=== PATIENT | male | born 1935 | race Caucasian/White ===

== ENCOUNTER 2018-07-20 23:01 | Emergency (ER) | payer MEDICARE ==
[2018-07-20] MEDS ORDERED: TOPICAL SKIN ADHESIVE 1 EACH AMP TOPICAL ONE (23:09)
--- NOTE | 2018-07-20 23:57 | ED ---
Extremity Problem HPI - General Chief complaint: Extremity Problem,Nontraumatic Stated complaint: Leg Bleeding Time Seen by Provider: 07/20/18 23:08 Source: patient Mode of arrival: ambulatory Limitations: no limitations - History of Present Illness Initial comments: 82-year-old male patient presents to the emergency department today for evaluation of bleeding from the right lower extremity. Patient states he was sitting watching television when he reached down and touched his leg and it came back bloody. Patient states he does have multiple varicose veins to the lower extremities. Patient states he must have struck his leg on something without realizing it. Patient is taking Xarelto currently. Denies any dizziness or weakness. Denies any numbness or tingling to the extremities. Patient denies any recent rash, fever, chills, shortness breath, chest pain, abdominal pain, nausea, vomiting, diarrhea, constipation, back pain, numbness, tingling, hematuria, dysuria, urinary urgency, urinary frequency, headache, visual changes, or any other complaints. - Related Data Home Medications Medication Instructions Recorded Confirmed Atorvastatin [Lipitor] 20 mg PO DAILY 07/20/18 07/20/18 Levothyroxine Sodium 88 mcg PO DAILY 07/20/18 07/20/18 Oxybutynin ER [Ditropan Xl] 10 mg PO DAILY 07/20/18 07/20/18 Rivaroxaban [Xarelto] 20 mg PO DAILY 07/20/18 07/20/18 Tamsulosin [Flomax] 0.4 mg PO DAILY 07/20/18 07/20/18 metFORMIN HCL ER [Glucophage Xr] 500 mg PO AC-BID 07/20/18 07/20/18 Allergies Allergy/AdvReac Type Severity Reaction Status Date / Time No Known Allergies Allergy Verified 07/20/18 23:41 Review of Systems ROS Statement: Those systems with pertinent positive or pertinent negative responses have been documented in the HPI. ROS Other: All systems not noted in ROS Statement are negative. Past Medical History Past Medical History: CVA/TIA, Hyperlipidemia, Prostate Disorder, Thyroid Disorder Additional Past Medical History / Comment(s): KIDNEY STONE AFE 35 History of Any Multi-Drug Resistant Organisms: None Reported Past Surgical History: Orthopedic Surgery, Tonsillectomy Additional Past Surgical History / Comment(s): RT ANKLE SX TOOK SOME BONE FROM LT HIP TO PUT IN LT ANKLE, JUS CATARACTS. Past Anesthesia/Blood Transfusion Reactions: No Reported Reaction Past Psychological History: No Psychological Hx Reported Smoking Status: Former smoker Past Alcohol Use History: Daily Past Drug Use History: None Reported - Past Family History Father Additional Family Medical History / Comment(s): AT AGE 54 NOT SURE OF EXACT CAUSE OF Mother Family Medical History: Dementia, Diabetes Mellitus Additional Family Medical History / Comment(s): IN HER 80'S-DEVELOPED DM AND DEMENTIA LATER IN LIFE. General Exam Limitations: no limitations General appearance: alert, in no apparent distress Respiratory exam: Present: normal lung sounds bilaterally. Absent: respiratory distress, wheezes, rales, rhonchi, stridor Cardiovascular Exam: Present: regular rate, normal rhythm, normal heart sounds. Absent: systolic murmur, diastolic murmur, rubs, gallop, clicks Extremities exam: Present: full ROM, normal capillary refill, other (Patient has pinpoint bleeding noted from a varicose vein to the right lower leg laterally. ). Absent: normal inspection, tenderness, pedal edema, joint swelling, calf tenderness Neurological exam: Present: alert, oriented X3, CN II-XII intact Psychiatric exam: Present: normal affect, normal mood Skin exam: Present: warm, dry, intact, normal color. Absent: rash Course Vital Signs 07/20/18 07/21/18 23:02 00:13 Temperature 98.8 F 97.7 F Pulse Rate 72 65 Respiratory 20 16 Rate Blood Pressure 131/79 O2 Sat by Pulse 95 94 L Oximetry Medical Decision Making - Medical Decision Making 82-year-old male patient presents to the emergency department today for evaluation of bleeding varicose vein. Physical examination did reveal a pinpoint area of bleeding to the right lateral calf. Plan was to close the wound using exofin skin adhesive. Family was present in the room, pressure dressing was applied. They declined receiving the glue and wanted to keep the pressure dressing in place. I did discuss removal of the dressing should his foot become colder discolored. He is instructed to follow-up with his family practitioner for further evaluation as soon as possible. Return parameters were discussed in detail. Both patient and family verbalized understanding and agrees with this plan. Disposition Clinical Impression: Bleeding from varicose vein Disposition: HOME SELF-CARE Condition: Good Instructions (If sedation given, give patient instructions): Acute Wound Care (ED) Additional Instructions: Keep pressure on the wound. Loosen dressing if you are foot becomes cold or discolored. Follow-up with your primary care physician for recheck in 1-2 days. Return to the emergency department immediately for any new, worsening, or concerning symptoms. Is patient prescribed a controlled substance at d/c from ED?: No Referrals: Eli Hunter III, MD [Primary Care Provider] - 1-2 days Time of Disposition: 23:56
[2018-07-21 00:14] VITALS: BP 131/79; PULSE 65; RESP 16; TEMP 97.7
== END 2018-07-21 00:25 | disposition home or self-care (01) ==
LOC: EC 23:01
DX: I83.891 Varicose veins of right lower extremity with other complications (principal); I83.92 Asymptomatic varicose veins of left lower extremity; E78.5 Hyperlipidemia, unspecified; N42.9 Disorder of prostate, unspecified; E07.9 Disorder of thyroid, unspecified; Z87.891 Personal history of nicotine dependence; Z79.01 Long term (current) use of anticoagulants; Z79.84 Long term (current) use of oral hypoglycemic drugs; Z79.890 Hormone replacement therapy; Z79.899 Other long term (current) drug therapy; Z86.73 Personal history of transient ischemic attack (TIA), and cerebral infarction without residual deficits; Z98.890 Other specified postprocedural states; Z53.8 Procedure and treatment not carried out for other reasons
CPT/HCPCS: 99283

== ENCOUNTER 2018-09-28 10:49 | Day surgery (SDC) | payer MEDICARE ==
[2018-09-23 08:17] VITALS: BMI 31.1
[~2018-09-28 10:49] MED LIST: ALPRAZolam 0.25 MG TAB PO PRN; ALPRAZolam 0.5 MG TAB PO PRN; ASPIRIN 325 MG TAB PO STA; ATORVASTATIN 80 MG TAB PO STA; NITROGLYCERIN SL TABS 0.4 MG TAB SUBLINGUAL PRN; SODIUM CHLORIDE 0.9% 1,000 ML in EMPTY BAG 1 BAG IV ONE
[2018-09-28 11:45] VITALS: PULSE 78; TEMP 97.9
[2018-09-28 11:46] LABS: Glucose,Whole Blood 114 mg/dL (75-99)
[2018-09-28 11:51] LABS: Basophils # (A) 0.1 k/uL (0-0.2); Basophils % (A) 1 %; Eosinophils # (A) 0.3 k/uL (0-0.7); Eosinophils % (A) 4 %; HCT 45.8 % (39.0-53.0); HGB 15.3 gm/dL (13.0-17.5); Lymphocytes # (A) 2.3 k/uL (1.0-4.8); Lymphocytes % (A) 29 %; MCHC 33.4 g/dL (31.0-37.0); MCV 83.8 fL (80.0-100.0); Mean Platelet Volume 8.3; Monocytes # (A) 0.6 k/uL (0-1.0); Monocytes % (A) 8 %; Neutrophils # (A) 4.5 k/uL (1.3-7.7); Neutrophils % (A) 56 %; Platelet Count 227 k/uL (150-450); RBC 5.47 m/uL (4.30-5.90); RDW 12.8 % (11.5-15.5)
[2018-09-28 12:02] LABS: Calcium 9.4 mg/dL (8.4-10.2)
[2018-09-28] MEDS ORDERED: fentaNYL (PF) 50 MCG/ML 2 ML AMP IV ONE (12:12)
[2018-09-28] MEDS ORDERED: LIDOCAINE 1% INJ 10MG/ML (20 ML MDV) SQ ONE (12:14)
[2018-09-28] MEDS ORDERED: MIDAZOLAM (PF) 2 MG/2 ML VIAL IV ONE (12:15)
[2018-09-28] MEDS ORDERED: VERAPAMIL SYRINGE (5 MG/10 ML) INTRAARTER ONE (12:16)
[2018-09-28] MEDS ORDERED: IV FLUID CONTINUATION 1,000 ML IV ONE (12:17)
[2018-09-28] MEDS ORDERED: HEPARIN SODIUM 1,000 UN/ML (10ML VL) IV ONE (12:23)
[2018-09-28] MEDS ORDERED: IOPAMIDOL-370 100ML BTL INJ ONE (12:31)
[2018-09-28] MEDS ORDERED: RX INFO: IV CONTRAST WAS GIVEN 1 EACH MISC MISCELLANE PRN (12:35)
[2018-09-28] MEDS ORDERED: SODIUM CHLORIDE 0.9% 1,000 ML IV SCH (12:45)
[2018-09-28 12:50] LABS: Glucose,Whole Blood 105 mg/dL (75-99)
--- NOTE | 2018-09-28 13:38 | CC ---
CARDIAC CATHETERIZATION REPORT Mr. Ambrose is an 82-year-old male with known history of diabetes, hyperlipidemia, paroxysmal atrial fibrillation who presented with symptoms of fatigue. He underwent a myocardial perfusion imaging that revealed evidence of inducible ischemia. He was evaluated by Dr. Eldridge and recommendation was made regarding cardiac catheterization. The procedure as well as the risks and complications were discussed with the patient who is in full understanding and agreement. PROCEDURE: Patient was brought to the laboratory apparatus glass grinder in a fasting semi-sedated state after receiving fentanyl and Benadryl and achieving moderate conscious sedated state. Using Xylocaine anesthesia in the Seldinger technique, a 6-Filipino sheath was introduced in the right radial artery. Selective right and left coronary angiography was performed using 5- Filipino 3.5 bend right and left Marie catheter. Multiple views of the right coronary artery including hemiaxial views were obtained. Following that 5-Filipino tight pigtail catheter was introduced in the left ventricle and pressures were calculated. Following that, catheter and sheath were removed. Hemostasis was obtained with deployment of a TR band. There was no immediate complication. Patient was returned to his room in stable condition. Of note, the patient received 5000 units of intravenous heparin as well as intra-arterial verapamil. FINDINGS: LEFT MAIN: This is a large-sized vessel trifurcating in left circumflex, left anterior descending artery and ramus intermedius. Left main coronary artery has no evidence of high-grade stenosis. LEFT ANTERIOR DESCENDING ARTERY: This is a large-sized vessel reaching toward the apex with a wraparound apex segment giving rise to a diagonal branch of moderate caliber proximally. The left anterior descending artery has a 20% to 30% plaque proximally without any evidence of high-grade stenosis. LEFT CIRCUMFLEX: This is a nondominant vessel giving rise to 3 obtuse marginal branches. The third one is the largest in caliber. The left circumflex proximally at the takeoff of the first obtuse marginal branch has a tubular lesion of about 50%. The rest of the vessel has no high-grade stenosis. RAMUS INTERMEDIUS: This is a small to moderate sized vessel that has a 50% to 60% plaque in the mid segment. The rest of the vessel has no high-grade stenosis. RIGHT CORONARY ARTERY: This is a dominant vessel bifurcating distally PDA and posterolateral segment and branches. The right coronary artery has mild intimal disease in the mid segment of 20% to 30% without any evidence of high-grade stenosis. LEFT VENTRICULOGRAM: Left ventriculogram was not performed. HEMODYNAMICS: There was no gradient across the aortic valve. The left ventricular end- diastolic pressure was 20 mmHg. CONCLUSION: 1. Mild to moderate triple-vessel coronary artery disease. 2. Mildly elevated left ventricular end-diastolic pressure. RECOMMENDATION: In view of finding anatomy, I recommend continue medical therapy with aggressive coronary risk modification that has been initiated and depending on his progress further recommendation will be made. Those findings and recommendations were discussed with the patient and his family and they are in full understanding and agreement. Duration of procedure is 18 minutes. MMODL / IJN: [id number] /
[2018-09-28 17:51] VITALS: RESP 18
[2018-09-28 17:55] VITALS: BP 134/90
[2018-09-29] MEDS ORDERED: TAMSULOSIN 0.4 MG CAP.ER.24H PO SCH (09:00)
[2018-09-29] MEDS ORDERED: OXYBUTYNIN 10 MG TAB.ER.24 PO SCH (09:00)
[2018-09-29] MEDS ORDERED: ATORVASTATIN 20 MG TAB PO SCH (09:00)
[2018-09-29] MEDS ORDERED: RIVAROXABAN 20 MG TAB PO SCH (09:00)
[2018-09-29] MEDS ORDERED: LEVOTHYROXINE 88 MCG TAB PO SCH (09:00)
== END 2018-09-28 16:30 | disposition home or self-care (01) ==
LOC: CATHCVL 10:49
PROVIDERS: ATTEND Internal Medicine Interventional Cardiology
DX: I25.10 Atherosclerotic heart disease of native coronary artery without angina pectoris (principal); I48.0 Paroxysmal atrial fibrillation; E78.5 Hyperlipidemia, unspecified; E78.00 Pure hypercholesterolemia, unspecified; E11.9 Type 2 diabetes mellitus without complications; Z72.0 Tobacco use; Z86.73 Personal history of transient ischemic attack (TIA), and cerebral infarction without residual deficits; Z95.818 Presence of other cardiac implants and grafts; Z79.84 Long term (current) use of oral hypoglycemic drugs; Z79.02 Long term (current) use of antithrombotics/antiplatelets; Z79.890 Hormone replacement therapy; Z79.899 Other long term (current) drug therapy
CPT/HCPCS: 93458; 80048; 85025; J2001; J3010; J1644; Q9967; J2250

== ENCOUNTER → 2019-02-15 | Outpatient (CLI) | payer MEDICARE ==
--- NOTE | 2019-02-15 08:41 | XR ---
EXAMINATION TYPE: XR chest 2V DATE OF EXAM: 02/15/2019 COMPARISON: 11/27/2015 TECHNIQUE: PA and lateral views submitted. HISTORY: Prostate cancer FINDINGS: The lungs are clear and there is no pneumothorax, pleural effusion, or focal pneumonia. Prominent pe ricardial fat pad on the right. No overt failure. Biapical pleural thickening. Hypertrophic and degen erative change of the spine. IMPRESSION: 1. No acute process.
--- NOTE | 2019-02-15 09:22 | CT ---
EXAMINATION TYPE: CT abdomen pelvis w con DATE OF EXAM: 02/15/2019 COMPARISON: CT abdomen and pelvis October 22, 2012 HISTORY: Prostate cancer. CT DLP: 1602 mGycm, Automated Exposure Control for Dose Reduction was Utilized. CONTRAST: CT scan of the abdomen and pelvis is performed with oral and with IV Contrast, patient injected with 80 mL of Isovue 300. FINDINGS: LUNG BASES: No significant abnormality is appreciated. LIVER/GB: Liver is diffusely low dense consistent with fatty infiltration. PANCREAS: Stable slight prominence with fatty infiltration of the pancreatic head. SPLEEN: No significant abnormality is seen. ADRENALS: No significant abnormality is seen. KIDNEYS: A few scattered simple appearing subcentimeter cysts throughout both kidneys. Symmetric dariel ical medullary uptake and excretion without hydronephrosis seen bilaterally. Poor distention of bladd er with moderate concentric wall thickening, nonspecific finding. Correlate clinically. BOWEL: No oral contrast reaches level of the hepatic flexure. There is no suspicious small or large bowel dilatation. There is redundancy of the sigmoid colon. PROSTATE/SEMINAL VESICLES: Prostate gland is not suspiciously enlarged. Adjacent pelvic phleboliths a re present. LYMPH NODES: No greater than 1cm abdominal or pelvic lymph nodes are appreciated. OSSEOUS STRUCTURES: [id number] multilevel anterior and lateral spurring in the spine. Moderate narrowing and spurring of both hip joints. Stable deformity left iliac wing presumed postsurgical. OTHER: Moderate mixed plaque in abdominal aorta extends into branch vessels. Some ectasia is seen wit hout greater than 3.0 cm aneurysmal change. Stable small fat-containing left inguinal hernia. IMPRESSION: No suspicious mass or adenopathy to suggest metastatic disease.
--- NOTE | 2019-02-15 11:21 | NM ---
EXAMINATION TYPE: NM bone scan whole body DATE OF EXAM: 02/15/2019 COMPARISON: CT scan 02/15/2019 HISTORY: Prostate cancer Delayed whole-body scanning was performed following the injection of 23.3 mCi Tc 99m MDP. Images acq uired 3 hours post injection. FINDINGS: Faint uptake is seen in the vertebral column. Lower intensity of uptake suggest this most likely dege nerative. This is seen throughout the visualized thoracic spine. Abnormal uptake involving the left iliac wing is compatible with postsurgical changes CT scan. Abnormal uptake involving the shoulders and sternoclavicular joints likely post arthritic. IMPRESSION: 1. Abnormal uptake throughout the vertebral column is nonspecific but likely degenerative given the l ower intensity of uptake and appearance of degenerative and hypertrophic changes by recent CT scan. 2. Mixed reduced and increased uptake left iliac wing suggest previous surgery concordant with CT sca n.
== END | disposition home or self-care (01) ==
LOC: RADCTMAIN 06:47
PROVIDERS: ATTEND Urology
DX: C61 Malignant neoplasm of prostate (principal); R93.7 Abnormal findings on diagnostic imaging of other parts of musculoskeletal system
CPT/HCPCS: 36415; 71046; 74177; 78306; 82565; 84520

== ENCOUNTER → 2019-07-19 | Outpatient (CLI) | payer MEDICARE | END | disposition home or self-care (01) | LOC: LABWHC1 12:12 | PROVIDERS: ATTEND Radiology Radiation Oncology | DX: C61 Malignant neoplasm of prostate (principal) | CPT/HCPCS: 36415; 84153 ==

== ENCOUNTER → 2019-11-03 | Outpatient (CLI) | payer MEDICARE | END | disposition home or self-care (01) | LOC: LABWHC1 09:39 | PROVIDERS: ATTEND Urology | DX: C61 Malignant neoplasm of prostate (principal) | CPT/HCPCS: 36415; 84153 ==

== ENCOUNTER 2019-12-13 06:50 | Day surgery (SDC) | payer MEDICARE ==
[2019-12-09 09:19] VITALS: BMI 30.2
[~2019-12-13 06:50] MED LIST changes: -ALPRAZolam 0.25 MG TAB PO PRN; -ALPRAZolam 0.5 MG TAB PO PRN; -ASPIRIN 325 MG TAB PO STA; -ATORVASTATIN 80 MG TAB PO STA; +LACTATED RINGERS 1,000 ML IV SCH; +LIDOCAINE 1% (10MG/ML) FOR IV START INTRADERMA PRN; -NITROGLYCERIN SL TABS 0.4 MG TAB SUBLINGUAL PRN; -SODIUM CHLORIDE 0.9% 1,000 ML in EMPTY BAG 1 BAG IV ONE
[2019-12-13 07:09] VITALS: TEMP 98
[2019-12-13] MEDS ORDERED: LACTATED RINGERS 1,000 ML IV ONE (07:09)
[2019-12-13 07:21] LABS: Glucose,Whole Blood 148 mg/dL (75-99)
[2019-12-13] MEDS ORDERED: LIDOCAINE 1% INJ 10MG/ML (20 ML MDV) ONE (08:10)
[2019-12-13] MEDS ORDERED: PROPOFOL 10 MG/ML 20 ML VIAL IV ONE (08:10)
--- NOTE | 2019-12-13 08:41 | P.PCN ---
Date of Procedure: 12/13/19 Procedure(s) Performed: PREOPERATIVE DIAGNOSIS: Abdominal pain, change in bowel habits, family history of colon cancer POSTOPERATIVE DIAGNOSIS: Gastritis, mild distal esophagitis, diverticulosis PROCEDURE: 1. EGD with biopsy 2. Colonoscopy and a biopsy and culture ANESTHESIA: [facility] [place]GEON: Eliud Lomas M.D. SPECIMENS: Antrum, distal esophagus, random colon, stool culture ENDOSCOPIC PROCEDURE: The patient was on the endoscopy table in the left decubitus position. The Olympus gastroscope was inserted into the oropharynx and passed under direct visualization to the region of the third portion of the duodenum. From that point the scope was slowly withdrawn inspecting all surfaces carefully. There were no neoplastic inflammatory or polypoid lesions throughout the duodenum. The pylorus was widely patent. The stomach was carefully inspected. There was gastritis present. A biopsy of the antrum took place to rule out H. pylori. Retroflexion revealed a normal hiatus. The esophagus was then carefully examined. There was mild distal esophagitis present. This was non-circumferential and nonulcerated. Biopsies of the mildly inflamed esophageal mucosa were taken. The remainder the esophagus appear normal. The patient was kept on the endoscopy table in the left decubitus position. The Olympus colonoscope was inserted into the anus and passed under direct visualization to the base of the cecum. The appendiceal orifice was visualized. From that point the scope was slowly withdrawn inspecting all surfaces carefully. There were no neoplastic inflammatory or polypoid lesions throughout the cecum, ascending, transverse, descending, sigmoid and rectum. Random biopsies of the colonic mucosa took place to evaluate for the patient's complaints of diarrhea. There was mild left-sided diverticulosis noted. No evidence of radiation proctitis was seen. Culture of the colonic fluid was taken for C. diff and stool culture. Digital rectal examination revealed small hemorrhoids. The patient was taken to the recovery room in stable condition per anesthesia guidelines. RECOMMENDATIONS: Await biopsy results and cultures. Consider follow-up colonoscopy 5 years.
[2019-12-13 08:43] VITALS: RESP 17
[2019-12-13 08:56] LABS: Glucose,Whole Blood 136 mg/dL (75-99)
[2019-12-13 09:05] VITALS: BP 151/51; PULSE 62
[2019-12-13] MEDS ORDERED: MIDAZOLAM 2 MG/2 ML VIAL IV PRN (19:56)
[2019-12-13] MEDS ORDERED: ONDANSETRON 4 MG/2 ML VIAL IVP PRN (19:56)
[2019-12-13] MEDS ORDERED: LACTATED RINGERS 1,000 ML IV SCH (20:00)
== END 2019-12-13 09:35 | disposition home or self-care (01) ==
LOC: ORWHC2ENDO 06:50
PROVIDERS: ATTEND Surgery
DX: K57.30 Diverticulosis of large intestine without perforation or abscess without bleeding (principal); K64.9 Unspecified hemorrhoids; K29.50 Unspecified chronic gastritis without bleeding; K20.90 Esophagitis, unspecified without bleeding; E78.5 Hyperlipidemia, unspecified; I48.91 Unspecified atrial fibrillation; E11.9 Type 2 diabetes mellitus without complications; Z85.46 Personal history of malignant neoplasm of prostate; Z92.3 Personal history of irradiation; Z79.01 Long term (current) use of anticoagulants; Z79.899 Other long term (current) drug therapy; Z79.84 Long term (current) use of oral hypoglycemic drugs; Z79.890 Hormone replacement therapy; Z98.890 Other specified postprocedural states; Z87.442 Personal history of urinary calculi; Z86.73 Personal history of transient ischemic attack (TIA), and cerebral infarction without residual deficits; Z90.89 Acquired absence of other organs; Z87.81 Personal history of (healed) traumatic fracture; Z98.41 Cataract extraction status, right eye; Z98.42 Cataract extraction status, left eye; Z80.0 Family history of malignant neoplasm of digestive organs
CPT/HCPCS: 88305; 87324; 87045; 87046; 45380; 43239; J2001; J2704

== ENCOUNTER → 2020-12-04 | Outpatient (CLI) | payer MEDICARE | END | disposition home or self-care (01) | LOC: LABWHC1 10:17 | PROVIDERS: ATTEND Radiology Radiation Oncology | DX: C61 Malignant neoplasm of prostate (principal); Z79.818 Long term (current) use of other agents affecting estrogen receptors and estrogen levels | CPT/HCPCS: 36415; 84153 ==

== ENCOUNTER → 2021-10-02 | Outpatient (CLI) | payer MEDICARE | END | disposition home or self-care (01) | LOC: LABWHC1 11:20 | PROVIDERS: ATTEND Internal Medicine Gastroenterology | DX: K52.9 Noninfective gastroenteritis and colitis, unspecified (principal) | CPT/HCPCS: 36415; 83516; 85652; 86140 ==

== ENCOUNTER → 2021-11-21 | Outpatient (CLI) | payer MEDICARE ==
[2021-11-21 19:53] LABS: HCT 38.8 % (39.6-50.0); HGB 12.2 g/dL (13.0-17.0); MCH 25.6 pg (27.0-32.0); MCHC 31.4 g/dL (32.0-37.0); MCV 81.5 fL (80.0-97.0); Mean Platelet Volume 12.2 fL (9.5-12.2); NRBC Per 100 WBC 0 /100 WBCS (0.0-0.0); Platelet Count 176 X 10*3/uL (140-440); RBC 4.76 X 10*6/uL (4.40-5.60); RDW 14.7 % (11.5-14.5); WBC 7.28 X 10*3/uL (4.50-10.00)
[2021-11-21 19:58] LABS: African American GFR (CKD) 40.8 (60.0-200.0); Anion Gap 13.6 mmol/L (10.00-18.00); Blood Urea Nitrogen 26.3 mg/dL (9.0-27.0); Carbon Dioxide 23.4 mmol/L (20.0-27.5); Non-African American GFR(CKD) 35.2 (60.0-200.0); Potassium 4.2 mmol/L (3.5-5.5)
== END | disposition home or self-care (01) ==
LOC: LABPAT 13:04
PROVIDERS: ATTEND Internal Medicine Clinical Cardiac Electrophysiology
DX: Z01.812 Encounter for preprocedural laboratory examination (principal); I25.10 Atherosclerotic heart disease of native coronary artery without angina pectoris; I48.19 Other persistent atrial fibrillation
CPT/HCPCS: 36415; 80051; 82565; 84520; 85027

== ENCOUNTER 2021-11-28 10:59 | Day surgery (SDC) | payer MEDICARE ==
[2021-11-27 11:42] VITALS: BMI 30.9
[~2021-11-28 10:59] MED LIST changes: -LIDOCAINE 1% (10MG/ML) FOR IV START INTRADERMA PRN; +SODIUM CHLORIDE 0.9% 1,000 ML IV SCH
[2021-11-28 11:23] VITALS: TEMP 97.6
[2021-11-28 11:23] LABS: Glucose,Whole Blood 116 mg/dL (70-110)
[2021-11-28] MEDS ORDERED: PROPOFOL 10 MG/ML 20 ML VIAL IV ONE (11:58)
--- NOTE | 2021-11-28 12:34 | P.EPPROC ---
- EP Procedure Note Electrophysiology Procedure Note: Diagnosis Persistent symptomatic atrial fibrillation tiredness and fatigue Very mild cardio myopathy On xarelto On amiodarone 40 mg by mouth daily Procedure Successful electrical cardioversion with a total visual biphasic shock to sinus rhythm Heart rates in the 50s Twelve-lead EKG shows sinus mechanism heart rate 53 beats a minute, mildly prolonged [place] interval Plan Continue amiodarone 400 mg by mouth daily till first december Reduce the dose of amiodarone to 200 mg by mouth daily thereafter Check TSH and liver function tests today Follow up in the office in about 4-6 weeks
[2021-11-28 13:19] VITALS: RESP 16
[2021-11-28 13:39] VITALS: BP 131/60; PULSE 68
== END 2021-11-28 13:38 | disposition home or self-care (01) ==
LOC: CATHEP 10:59
PROVIDERS: ATTEND Internal Medicine Clinical Cardiac Electrophysiology
DX: I48.19 Other persistent atrial fibrillation (principal); I07.1 Rheumatic tricuspid insufficiency; I51.7 Cardiomegaly; Z72.0 Tobacco use; Z79.01 Long term (current) use of anticoagulants; Z79.899 Other long term (current) drug therapy; Z79.890 Hormone replacement therapy
CPT/HCPCS: 92960; J2704

== ENCOUNTER 2023-03-09 18:20 | Inpatient (IN) | payer MEDICARE ==
--- NOTE | 2023-03-09 19:14 | ED ---
General Adult HPI - General Chief complaint: Fall Stated complaint: Back Pain Time Seen by Provider: 03/09/23 19:00 Source: patient Mode of arrival: ambulatory Limitations: no limitations - History of Present Illness Initial comments: This patient is an 87-year-old man arriving here to have evaluation for ground- level fall. It was reported that [facility] staff went to get the patient for dinner and they found him on the floor next his chair. The patient reports that he had tried to get out of the chair and slid down. He states she didn't really fall but went to the ground slowly. He states that he was just feeling too weak to get up. Patient is denying pain or injury now. The patient states he would like to go back and have his dinner. -: hour(s) Severity scale (1-10): 0 Improves with: none Worsens with: none Associated Symptoms: weakness Treatments Prior to Arrival: none - Related Data Home Medications Medication Instructions Recorded Confirmed Levothyroxine Sodium 88 mcg PO DAILY 07/20/18 03/09/23 metFORMIN HCL ER [Glucophage XR] 1,000 mg PO W/SUPPER 07/20/18 03/09/23 Amiodarone [Cordarone] 100 mg PO DAILY 03/09/23 03/09/23 Rivaroxaban [Xarelto] 15 mg PO DIRECTED 03/09/23 03/09/23 Allergies Allergy/AdvReac Type Severity Reaction Status Date / Time No Known Allergies Allergy Verified 03/09/23 22:18 Review of Systems ROS Statement: Those systems with pertinent positive or pertinent negative responses have been documented in the HPI. ROS Other: All systems not noted in ROS Statement are negative. Constitutional: Reports: weakness. Denies: fever, chills Eyes: Denies: vision change Respiratory: Denies: cough, dyspnea Cardiovascular: Denies: chest pain, edema, syncope Gastrointestinal: Denies: abdominal pain, vomiting, diarrhea Genitourinary: Denies: dysuria, hematuria Musculoskeletal: Denies: back pain Skin: Denies: rash Neurological: Denies: headache, weakness, confusion Past Medical History Past Medical History: CVA/TIA, Hyperlipidemia, Prostate Disorder, Thyroid Disorder Additional Past Medical History / Comment(s): KIDNEY STONE AGE 33. Recent Stress Test History of Any Multi-Drug Resistant Organisms: None Reported Past Surgical History: Orthopedic Surgery, Tonsillectomy Additional Past Surgical History / Comment(s): RT ANKLE SX TOOK SOME BONE FROM LT HIP TO PUT IN LT ANKLE, JUS CATARACTS. Past Anesthesia/Blood Transfusion Reactions: No Reported Reaction Additional Past Anesthesia/Blood Transfusion Reaction / Comment(s): does not want blood transfusion Past Psychological History: No Psychological Hx Reported Smoking Status: Never smoker Past Alcohol Use History: Daily Past Drug Use History: None Reported - Past Family History Mother Family Medical History: Dementia, Diabetes Mellitus Brother(s) Family Medical History: Cancer Additional Family Medical History / Comment(s): "colon problems". colon cancer General Exam Limitations: no limitations General appearance: alert, in no apparent distress Head exam: Present: atraumatic, normocephalic Eye exam: Present: normal appearance. Absent: scleral icterus, conjunctival injection ENT exam: Present: normal oropharynx Neck exam: Present: normal inspection Respiratory exam: Present: normal lung sounds bilaterally. Absent: respiratory distress, wheezes, rales, rhonchi, stridor Cardiovascular Exam: Present: regular rate, normal rhythm, normal heart sounds. Absent: systolic murmur, diastolic murmur, rubs, gallop GI/Abdominal exam: Present: soft. Absent: distended, tenderness, guarding, rebound, rigid, mass Extremities exam: Present: normal inspection, normal capillary refill. Absent: pedal edema, calf tenderness Back exam: Present: normal inspection. Absent: CVA tenderness (R), CVA tenderness (L) Neurological exam: Present: alert. Absent: motor sensory deficit Skin exam: Present: warm, dry, intact, normal color. Absent: rash Course Vital Signs 03/09/23 03/09/23 03/09/23 18:37 20:50 20:55 Temperature 98 F Pulse Rate 77 81 Pulse Rate [ Right Pulse Oximetery] Respiratory 20 18 Rate Blood Pressure 182/103 157/97 Blood Pressure [Right Arm Sitting] O2 Sat by Pulse 97 94 L Oximetry 03/09/23 03/09/23 23:04 23:59 Temperature 98.4 F Pulse Rate 84 Pulse Rate [ 72 Right Pulse Oximetery] Respiratory 17 18 Rate Blood Pressure 126/71 Blood Pressure 149/92 [Right Arm Sitting] O2 Sat by Pulse 94 L 96 Oximetry EKG Findings - EKG Comments: EKG Findings:: There is possible old lateral infarct. - EKG Results: EKG: interpreted by ERMD, sinus rhythm, normal axis - Blocks, [place], Hypertrophy, ST Abn: AV and intraventricular conduction: 1 AV block QRS axis and voltage: low voltage (<0.5 MV total QRS and <1.0 MV in each precordial lead) - WA, Pacemaker, Normal: Myocardial infarction: septal WA (old age or indeterminate) Medical Decision Making - Medical Decision Making Patient is an 87-year-old man here to have evaluation after low mechanism of injury fall, and being too weak to get up. The patient's initial evaluation, physical exam, studies are largely unremarkable, and he was feeling better and wanted to go home. The patient however was not able to ambulate, and therefore will have admission to have physical therapy consultation and to see if any of the cultures return a positive result, given the patient's mild leukocytosis. The patient's Covid swab did subsequently return a positive result. Was pt. sent in by a medical professional or institution (, PA, DIRECTOR LEARNING, urgent care, hospital, or [facility]...) When possible be specific @ -[Yes, patient sent from long-term care facility Did you speak to anyone other than the patient for history (EMS, parent, family, police, friend...)? What history was obtained from this source @ -[Patient's son did attribute some history Did you review nursing and triage notes (agree or disagree)? Why? @ -[I reviewed and agree with nursing and triage notes] Were old charts reviewed (outside hosp., previous admission, EMS record, old EKG, old radiological studies, urgent care reports/EKG's, [facility] records)? Report findings @ -[No old charts were reviewed] Differential Diagnosis (chest pain, altered mental status, abdominal pain women, abdominal pain men, vaginal bleeding, weakness, fever, dyspnea, syncope, headache, dizziness, GI bleed, back pain, seizure, CVA, palpatations, mental health, musculoskeletal)? @ -[Differential Weakness: Hypoglycemia, shock, sepsis, hyponatremia, anemia, infection, WA, ETOH, adverse medicine reaction, overdose, stroke, this is not meant to be an all-inclusive list. EKG interpreted by me (3pts min.). @ -[As above] X-rays interpreted by me (1pt min.). @ -[None done] CT interpreted by me (1pt min.). @ -[None done] U/S interpreted by me (1pt. min.). @ -[None done] What testing was considered but not performed or refused? (CT, X-rays, U/S, labs)? Why? @ -[None] What meds were considered but not given or refused? Why? @ -[None] Did you discuss the management of the patient with other professionals (professionals i.e. , PA, DIRECTOR LEARNING, lab, RT, psych nurse, social human services assistants, lining marker, teacher, radio electronics officer, medical case manager)? Give summary @ -[Case discussed with admitting physician and treatment recommendations are incorporated Was smoking cessation discussed for >3mins.? @ -[No] Was critical care preformed (if so, how long)? @ -[No] Were there social determinants of health that impacted care today? How? (Homelessness, low income, unemployed, alcoholism, drug addiction, transportation, low edu. Level, literacy, decrease access to med. care, custodial, rehab)? @ -[No] Was there de-escalation of care discussed even if they declined (Discuss DNR or withdrawal of care, Hospice)? DNR status @ -[No] What co-morbidities impacted this encounter? (DM, HTN, Smoking, COPD, CAD, Cancer, CVA, ARF, Chemo, Hep., AIDS, mental health diagnosis, sleep apnea, morbid obesity)? @ -[None] Was patient admitted / discharged? Hospital course, mention meds given and route, prescriptions, significant lab abnormalities, going to OR and other pertinent info. @ -[As above Undiagnosed new problem with uncertain prognosis? @ -[No] Drug Therapy requiring intensive monitoring for toxicity (Heparin, Nitro, Insulin, Cardizem)? @ -[No] Were any procedures done? @ -[No] Diagnosis/symptom? @ -[Acute generalized weakness with inability to ambulate Leukocytosis Acute COVID-19 infection Acute, or Chronic, or Acute on Chronic? @ -[Acute Uncomplicated (without systemic symptoms) or Complicated (systemic symptoms)? @ -[Uncomplicated Side effects of treatment? @ -[No] Exacerbation, Progression, or Severe Exacerbation? @ -[No] Poses a threat to life or bodily function? How? (Chest pain, [place], WA, pneumonia, PE, COPD, DKA, ARF, appy, cholecystitis, CVA, Diverticulitis, Homicidal, Suicidal, threat to staff... and all critical care pts) @ -[This COVID-19 infection does pose some risk to life - Lab Data Result diagrams: 03/09/23 19:45 03/09/23 19:45 Lab Results 03/09/23 03/09/23 03/09/23 Range/Units 19:45 19:45 19:45 WBC 15.3 H (3.8-10.6) k/uL RBC 5.09 (4.30-5.90) m/uL Hgb 13.9 (13.0-17.5) gm/dL Hct 42.3 (39.0-53.0) % MCV 83.1 (80.0-100.0) fL MCH 27.2 (25.0-35.0) pg MCHC 32.8 (31.0-37.0) g/dL RDW 13.6 (11.5-15.5) % Plt Count 226 (150-450) k/uL MPV 9.4 Neutrophils % 82 % Lymphocytes % 8 % Monocytes % 7 % Eosinophils % 0 % Basophils % 1 % Neutrophils # 12.5 H (1.3-7.7) k/uL Lymphocytes # 1.3 (1.0-4.8) k/uL Monocytes # 1.1 H (0-1.0) k/uL Eosinophils # 0.1 (0-0.7) k/uL Basophils # 0.1 (0-0.2) k/uL PT 11.4 (10.0-12.5) sec INR 1.1 (<1.2) APTT 31.3 H (22.0-30.0) sec Sodium 138 (137-145) mmol/L Potassium 4.6 (3.5-5.1) mmol/L Chloride 103 (98-107) mmol/L Carbon Dioxide 28 (22-30) mmol/L Anion Gap 7 mmol/L BUN 21 H (9-20) mg/dL Creatinine 1.62 H (0.66-1.25) mg/dL Est GFR (CKD-EPI)AfAm 43 (>60 ml/min/1.73 sqM) Est GFR (CKD-EPI)NonAf 37 (>60 ml/min/1.73 sqM) Glucose 140 H (74-99) mg/dL Plasma Lactic Acid Alexei (0.7-2.0) mmol/L Calcium 9.2 (8.4-10.2) mg/dL Magnesium 1.8 (1.6-2.3) mg/dL Total Bilirubin 1.1 (0.2-1.3) mg/dL AST 33 (17-59) U/L ALT 19 (4-49) U/L Alkaline Phosphatase 76 (38-126) U/L Creatine Kinase 111 (55-170) U/L CK-MB (CK-2) (0.0-3.4) ng/mL Troponin I (0.000-0.034) ng/mL Total Protein 8.5 H (6.3-8.2) g/dL Albumin 4.5 (3.5-5.0) g/dL Urine Color Urine Appearance (Clear) Urine pH (5.0-8.0) Ur Specific [place] (1.001-1.035) Urine Protein (Negative) Urine Glucose (UA) (Negative) Urine Ketones (Negative) Urine Blood (Negative) Urine Nitrite (Negative) Urine Bilirubin (Negative) Urine Urobilinogen (<2.0) mg/dL Ur Leukocyte Esterase (Negative) Urine RBC (0-5) /hpf Urine WBC (0-5) /hpf Ur Squamous Epith Cells (0-4) /hpf Hyaline Casts (0-2) /lpf Urine Mucus (None) /hpf 03/09/23 03/09/23 03/09/23 Range/Units 19:45 19:45 19:45 WBC (3.8-10.6) k/uL RBC (4.30-5.90) m/uL Hgb (13.0-17.5) gm/dL Hct (39.0-53.0) % MCV (80.0-100.0) fL MCH (25.0-35.0) pg MCHC (31.0-37.0) g/dL RDW (11.5-15.5) % Plt Count (150-450) k/uL MPV Neutrophils % % Lymphocytes % % Monocytes % % Eosinophils % % Basophils % % Neutrophils # (1.3-7.7) k/uL Lymphocytes # (1.0-4.8) k/uL Monocytes # (0-1.0) k/uL Eosinophils # (0-0.7) k/uL Basophils # (0-0.2) k/uL PT (10.0-12.5) sec INR (<1.2) APTT (22.0-30.0) sec Sodium (137-145) mmol/L Potassium (3.5-5.1) mmol/L Chloride (98-107) mmol/L Carbon Dioxide (22-30) mmol/L Anion Gap mmol/L BUN (9-20) mg/dL Creatinine (0.66-1.25) mg/dL Est GFR (CKD-EPI)AfAm (>60 ml/min/1.73 sqM) Est GFR (CKD-EPI)NonAf (>60 ml/min/1.73 sqM) Glucose (74-99) mg/dL Plasma Lactic Acid Alexei 1.1 (0.7-2.0) mmol/L Calcium (8.4-10.2) mg/dL Magnesium (1.6-2.3) mg/dL Total Bilirubin (0.2-1.3) mg/dL AST (17-59) U/L ALT (4-49) U/L Alkaline Phosphatase (38-126) U/L Creatine Kinase (55-170) U/L CK-MB (CK-2) 1.3 (0.0-3.4) ng/mL Troponin I 0.014 (0.000-0.034) ng/mL Total Protein (6.3-8.2) g/dL Albumin (3.5-5.0) g/dL Urine Color Light Yellow Urine Appearance Clear (Clear) Urine pH 8.0 (5.0-8.0) Ur Specific [place] 1.018 (1.001-1.035) Urine Protein 1+ H (Negative) Urine Glucose (UA) Negative (Negative) Urine Ketones Negative (Negative) Urine Blood Negative (Negative) Urine Nitrite Negative (Negative) Urine Bilirubin Negative (Negative) Urine Urobilinogen <2.0 (<2.0) mg/dL Ur Leukocyte Esterase Negative (Negative) Urine RBC 1 (0-5) /hpf Urine WBC <1 (0-5) /hpf Ur Squamous Epith Cells <1 (0-4) /hpf Hyaline Casts 4 H (0-2) /lpf Urine Mucus Rare H (None) /hpf Disposition Clinical Impression: Fall, Generalized weakness Disposition: HOME SELF-CARE Condition: Good Is patient prescribed a controlled substance at d/c from ED?: No
--- NOTE | 2023-03-09 19:58 | XR ---
EXAMINATION TYPE: XR chest 2V DATE OF EXAM: 03/09/2023 COMPARISON: 02/15/2019 HISTORY: Weakness TECHNIQUE: Frontal and lateral views of the chest are obtained. FINDINGS: There is no focal air space opacity, pleural effusion, or pneumothorax seen. The cardiac silhouette size is within normal limits. The osseous structures are intact. IMPRESSION: No acute cardiopulmonary process.
[2023-03-09 19:59] LABS: Basophils # (A) 0.1 k/uL (0-0.2); Basophils % (A) 1 %; Eosinophils # (A) 0.1 k/uL (0-0.7); Eosinophils % (A) 0 %; HCT 42.3 % (39.0-53.0); HGB 13.9 gm/dL (13.0-17.5); Lymphocytes # (A) 1.3 k/uL (1.0-4.8); Lymphocytes % (A) 8 %; MCH 27.2 pg (25.0-35.0); MCHC 32.8 g/dL (31.0-37.0); MCV 83.1 fL (80.0-100.0); Mean Platelet Volume 9.4; Monocytes # (A) 1.1 k/uL (0-1.0); Monocytes % (A) 7 %; Neutrophils # (A) 12.5 k/uL (1.3-7.7); Neutrophils % (A) 82 %; Platelet Count 226 k/uL (150-450); RBC 5.09 m/uL (4.30-5.90); RDW 13.6 % (11.5-15.5); WBC 15.3 k/uL (3.8-10.6)
[2023-03-09 20:13] LABS: INR 1.1 (<1.2); Partial Thromboplastin Time 31.3 sec (22.0-30.0); Prothrombin Time 11.4 sec (10.0-12.5)
[2023-03-09 20:16] LABS: ALT 19 U/L (4-49); AST 33 U/L (17-59); African American GFR (CKD) 43 (>60 ml/min/1.73 sqM); Albumin 4.5 g/dL (3.5-5.0); Alkaline Phosphatase 76 U/L (38-126); Blood Urea Nitrogen 21 mg/dL (9-20); Calcium 9.2 mg/dL (8.4-10.2); Carbon Dioxide 28 mmol/L (22-30); Chloride 103 mmol/L (98-107); Creatine Kinase 111 U/L (55-170); Glucose 140 mg/dL (74-99); Magnesium 1.8 mg/dL (1.6-2.3); Non-African American GFR(CKD) 37 (>60 ml/min/1.73 sqM); Total Bilirubin 1.1 mg/dL (0.2-1.3); Total Protein 8.5 g/dL (6.3-8.2)
[2023-03-09 20:19] LABS: Appearance,Urine Clear (Clear); Bilirubin,Urine Negative (Negative); Blood,Urine Negative (Negative); Color,Urine Light Yellow; Glucose,Urine (UA) Negative (Negative); Hyaline Casts,Urine 4 /lpf (0-2); Ketones,Urine Negative (Negative); Leukocyte Esterase,Urine Negative (Negative); Mucus,Urine Rare /hpf; Nitrite,Urine Negative (Negative); Protein,Urine 1+ (Negative); RBC,Urine 1 /hpf (0-5); Specific Gravity,Urine 1.018 (1.001-1.035); Squamous Epithelial Cell,Urine <1 /hpf (0-4); Urobilinogen,Urine <2.0 mg/dL (<2.0); WBC,Urine <1 /hpf (0-5)
[2023-03-09 20:26] LABS: Creatine Kinase MB 1.3 ng/mL (0.0-3.4); Troponin I 0.014 ng/mL (0.000-0.034)
[2023-03-09 20:36] LABS: Anion Gap 7 mmol/L; Potassium 4.6 mmol/L (3.5-5.1); Sodium 138 mmol/L (137-145)
[2023-03-09] MEDS ORDERED: NALOXONE 0.4 MG/ML 1 ML VIAL IV PRN (21:49)
[2023-03-09] MEDS: SODIUM CHLORIDE 0.9% 1,000 ML IV SCH (22:22)
[2023-03-10 06:02] LABS: Glucose,Whole Blood 142 mg/dL (70-110)
[2023-03-10] MEDS: metFORMIN 500 MG TAB PO SCH (06:04)
[2023-03-10] MEDS: LEVOTHYROXINE 88 MCG TAB PO SCH (06:04)
[2023-03-10] MEDS ORDERED: ATORVASTATIN 40 MG TAB PO SCH (09:00)
[2023-03-10] MEDS ORDERED: TAMSULOSIN 0.4 MG CAP.ER.24H PO SCH (09:00)
[2023-03-10] MEDS ORDERED: RIVAROXABAN 20 MG TAB PO SCH (09:00)
[2023-03-10] MEDS: RIVAROXABAN 15 MG TAB PO SCH (09:03)
[2023-03-10] MEDS: FAMOTIDINE 20 MG TAB PO SCH (09:04)
[2023-03-10] MEDS: AMIODARONE 100 MG TAB PO SCH (09:04)
[2023-03-10] MEDS ORDERED: DEXTROSE 50% SYRINGE 50 ML IVP PRN ×2 (11:02)
[2023-03-10] MEDS ORDERED: MAG HYDROX/AL HYDROX/SIMETH 30 ML CUP PO PRN (11:08)
[2023-03-10] MEDS ORDERED: ONDANSETRON 4 MG/2 ML VIAL IVP PRN (11:08)
[2023-03-10] MEDS ORDERED: MELATONIN 3 MG TABLET PO PRN (11:08)
[2023-03-10] MEDS ORDERED: ALPRAZolam 0.25 MG TAB PO PRN (11:08)
--- NOTE | 2023-03-10 12:15 | XR ---
EXAMINATION TYPE: XR lumbar spine 2 or 3V, XR thoracic spine 2V DATE OF EXAM: 03/10/2023 11:51 AM CLINICAL INDICATION:Male, 87 years old with history of fall low back pain t12-L1 area; [facility] COMPARISON: None TECHNIQUE: XR lumbar spine 2 or 3V, XR thoracic spine 2V - Frontal, lateral and coned in L5-S1 latera l views of the spine. FINDINGS: No evidence of any acute osseous pathology. There is normal alignment of the lumbar vertebr al bodies. Mild scattered disc space narrowing. Multilevel marginal osteophyte formation throughout t he visualized spine. There is facet joint arthropathy throughout the spine. Scattered at least mild n eural foraminal stenosis. Atherosclerosis of the arterial vasculature. Loop recorder is present. IMPRESSION: 1. No acute fracture. 2. Moderate multilevel disc degeneration.
[2023-03-10 12:16] LABS: Glucose,Whole Blood 144 mg/dL (70-110)
[2023-03-10] MEDS: INSULIN ASPART (NovoLOG) 100 UNIT/ML VIAL SQ SCH (12:54)
[2023-03-10] MEDS: ASCORBIC ACID 500 MG TAB PO SCH (12:58)
[2023-03-10] MEDS: CHOLECALCIFEROL 125 MCG (5000 IU) TABLET PO SCH (12:58)
--- NOTE | 2023-03-10 16:22 | P.HPIM ---
History of Present Illness H&P Date: 03/10/23 Chief Complaint: fall This is a pleasant 87-year-old patient who follows with Dr Santamaria. Chronic stable medical condition includes hyperlipidemia, prior prostate cancer treated with radiation treatment, hypothyroid,. Patient is resident at [facility]. Rather independent. Patient's 2 sons Everardo Ambrose are at the bedside. Patient has gradually been slowing down. Up to 2 days ago had a fairly good appetite. Has been becoming slightly forgetful. Yesterday patient was sitting in a chair. Will start to get up and nightly he simply slid down. Denied any chest pain or palpitation for last day or 2 has been feeling tired a bit short of breath sore throat fever decreased appetite. Patient has longstanding intermittent diarrhea. Has not had extensive workup for the same. Does take Xarelto for atrial fibrillation. Patient tested for COVID in the ER. Patient this morning has complained of some lower back pain. When he moves. But not anything excruciating. Appears to be rather comfortable otherwise. Review of systems: GEN.: Tired decreased appetite, fever EYES: None HEENT: N decreased hearing NECK: None RESPIRATORY: Mild shortness of breath ne CARDIOVASCULAR: None GASTROINTESTINAL: None GENITOURINARY: N urine incontinence MUSCULOSKELETAL: Some joint pains e LYMPHATICS: None HEMATOLOGICAL: None PSYCHIATRY: Forgetful e NEUROLOGICAL: None Social history: Lives at [facility]. Independent unit. Patient smoked for 17 years stopped at the age of 33. Less than 1 pack a day. Drinks about 2 beers a day. Retired from [employer]. Physical examination: VITAL SIGNS: 98.1, 81, 18, 160/88, 93% room air GENERAL: BMI 25.8, reclining bed awake tired. EYES: Pupils equal. Conjunctiva yoly l. HEENT: External appearance of nose and ears normal, oral cavity grossly normal. Decreased hearing NECK: JVD not raised; masses not palpable. HEART: First and second heart sounds are normal; no edema. LUNGS: Respiratory rate normal; clear to auscultation. ABDOMEN: Soft, nontender, liver spleen not palpable, no masses palpable. PSYCH: [Patient is able to answer simple questions. But forgetful. MUSCULOSKELETAL:No Clubbing/cyanosis;muscles-grossly intact. OA NEUROLOGICAL: Cranial nerves grossly intact; no facial asymmetry, power and sensation grossly intact. LYMPHATICS: No lymph nodes palpable in the axilla and neck INVESTIGATIONS, reviewed in the clinical context: White count 15.3 hemoglobin 13.9 platelets 226 sodium 138 potassium 4.6 BUN 21 creatinine 1.62 UA protein 1+ Influenza type A, type B, RSV,-not detected COVID-19 PCR: Detected EKG tracing personally reviewed by me-normal sinus rhythm. Nonspecific T wave changes. Chest x-ray film personally reviewed by me-possible scant infiltrates Assessment and plan: -Acute COVID-19 pneumonitis. Patient has borderline hypoxia, with pulse ox 93% room air this morning. Will start the patient on dexamethasone 6 mg a day. Patient has a poor appetite. Sore throat. -Relative hypoxia with pulse ox 93% room air. Dexamethasone -Clinical dehydration with decreased oral intake. IV fluids. -Primary osteoarthritis multiple joints Tylenol as needed -Low back pain patient slid off the chair. Some localized tenderness. Not much significant. X-ray of the thoracolumbar spine. Tylenol as needed. K-pad. -Chronic urine incontinence. 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 Accu-Cheks with sliding scale insulin. -Acute severe medical debility. Prior to this presentation patient was rather independent. Yesterday when he went down he was so weak that he has to his 2 adult sons were not able to pick it up. PT OT. Care was discussed with patient's 2 sons Abhijit and Richard at the bedside. Questions answered. This patient was independent before now not able able to ge t up. Not able to eat. Given the complexity and severity of patient's condition expect the patient to be in the hospital at least for 2 overnights Past Medical History Past Medical History: CVA/TIA, Hyperlipidemia, Prostate Disorder, Thyroid Disorder Additional Past Medical History / Comment(s): KIDNEY STONE AGE 33. Recent Stress Test History of Any Multi-Drug Resistant Organisms: None Reported Past Surgical History: Orthopedic Surgery, Tonsillectomy Additional Past Surgical History / Comment(s): RT ANKLE SX TOOK SOME BONE FROM LT HIP TO PUT IN LT ANKLE, JUS CATARACTS. Past Anesthesia/Blood Transfusion Reactions: No Reported Reaction Additional Past Anesthesia/Blood Transfusion Reaction / Comment(s): does not want blood transfusion Past Psychological History: No Psychological Hx Reported Smoking Status: Never smoker Past Alcohol Use History: Daily Past Drug Use History: None Reported - Past Family History Mother Family Medical History: Dementia, Diabetes Mellitus Brother(s) Family Medical History: Cancer Additional Family Medical History / Comment(s): "colon problems". colon cancer Medications and Allergies Home Medications Medication Instructions Recorded Confirmed Type Levothyroxine Sodium 88 mcg PO DAILY 07/20/18 03/09/23 History metFORMIN HCL ER [Glucophage XR] 1,000 mg PO W/SUPPER 07/20/18 03/09/23 History Amiodarone [Cordarone] 100 mg PO DAILY 03/09/23 03/09/23 History Rivaroxaban [Xarelto] 15 mg PO DAILY 03/09/23 03/10/23 History Allergies Allergy/AdvReac Type Severity Reaction Status Date / Time No Known Allergies Allergy Verified 03/09/23 22:18 Physical Exam Vitals: Vital Signs Temp Pulse Pulse Resp BP BP Pulse Ox 03/10/23 09:00 98.1 F 81 18 160/88 93 L 03/10/23 04:00 98.5 F 88 18 151/90 96 03/10/23 02:00 72 18 03/10/23 00:10 18 03/09/23 23:59 98.4 F 72 18 149/92 96 03/09/23 23:04 84 17 126/71 94 L 03/09/23 20:55 94 L 03/09/23 20:50 81 18 157/97 03/09/23 18:37 98 F 77 20 182/103 97 Intake and Output 03/09/23 03/10/23 03/10/23 22:59 06:59 14:59 Intake Total 120 118 Output Total 250 Balance -130 118 Intake: Oral 120 118 Output: Urine 250 Other: Voiding Method Urinal Urinal Weight 86.183 kg 86.183 kg Results CBC & Chem 7: 03/09/23 19:45 03/09/23 19:45 Labs: Abnormal Lab Results - Last 24 Hours (Table) 03/09/23 03/09/23 03/09/23 Range/Units 19:45 19:45 19:45 WBC 15.3 H (3.8-10.6) k/uL Neutrophils # 12.5 H (1.3-7.7) k/uL Monocytes # 1.1 H (0-1.0) k/uL APTT 31.3 H (22.0-30.0) sec BUN 21 H (9-20) mg/dL Creatinine 1.62 H (0.66-1.25) mg/dL Glucose 140 H (74-99) mg/dL POC Glucose (mg/dL) (70-110) mg/dL Total Protein 8.5 H (6.3-8.2) g/dL Urine Protein (Negative) Hyaline Casts (0-2) /lpf Urine Mucus (None) /hpf SARS-CoV-2 (PCR) (Not Detectd) 03/09/23 03/09/23 03/10/23 Range/Units 19:45 22:04 06:01 WBC (3.8-10.6) k/uL Neutrophils # (1.3-7.7) k/uL Monocytes # (0-1.0) k/uL APTT (22.0-30.0) sec BUN (9-20) mg/dL Creatinine (0.66-1.25) mg/dL Glucose (74-99) mg/dL POC Glucose (mg/dL) 142 H (70-110) mg/dL Total Protein (6.3-8.2) g/dL Urine Protein 1+ H (Negative) Hyaline Casts 4 H (0-2) /lpf Urine Mucus Rare H (None) /hpf SARS-CoV-2 (PCR) Detected A (Not Detectd) 03/10/23 Range/Units 12:13 WBC (3.8-10.6) k/uL Neutrophils # (1.3-7.7) k/uL Monocytes # (0-1.0) k/uL APTT (22.0-30.0) sec BUN (9-20) mg/dL Creatinine (0.66-1.25) mg/dL Glucose (74-99) mg/dL POC Glucose (mg/dL) 144 H (70-110) mg/dL Total Protein (6.3-8.2) g/dL Urine Protein (Negative) Hyaline Casts (0-2) /lpf Urine Mucus (None) /hpf SARS-CoV-2 (PCR) (Not Detectd) Thrombosis Risk Factor Assmnt - Choose All That Apply Other Risk Factors: Yes Each Risk Factor Represents 3 Points: Age 75 years or older Other congenital or acquired thrombophilia - If yes, enter type in comment: No Thrombosis Risk Factor Assessment Total Risk Factor Score: 3 Thrombosis Risk Factor Assessment Level: Moderate Risk
[2023-03-10 16:39] LABS: Glucose,Whole Blood 180 mg/dL (70-110)
[2023-03-10 20:14] LABS: Glucose,Whole Blood 203 mg/dL (70-110)
[2023-03-10] MEDS: ACETAMINOPHEN TAB 325 MG TAB PO PRN (23:55)
[2023-03-11 05:47] LABS: Glucose,Whole Blood 136 mg/dL (70-110)
[2023-03-11] MEDS: dexAMETHasone 2 MG TAB PO SCH (08:59)
[2023-03-11] MEDS: FAMOTIDINE 20 MG TAB PO SCH (08:59)
--- NOTE | 2023-03-11 11:27 | P.CONS ---
History of Present Illness - Reason for Consult Consult date: 03/11/23 rehab recommendations - Chief Complaint debility, COVID - History of Present Illness Mr Simón Ambrose is an 87 y/o , right handed male who lives alone at [facility]. Prior to admission, he was independent with mobility and ADLs. He did get assistance with meals and cleaning. He has 5 adult children who are very supportive. Patient presented to [facility] on 03/09/23 after a fall at ground level. Patient was found by staff at [facility] on the ground when they brought him his dinner. He reports he tried to get out of the chair but slid down. He was too weak to get back up and unable to get up with assistance from his sons. EKG showed possible old infarct, WBC 15.3. He was tested for COVID and positive. He was started on steroids. Patient has longstanding intermittent diarrhea, Does take Xarelto for atrial fibrillation. He had some complaints of LBP, Xrays o rdered, no acute fracture, degenerative changes. PM&R consulted for rehab recommendations. Patient was seen by therapies; UB dressing min assist, LB dressing max assist, gait 20 ft min assist. Currently has some muscular stomach pain from trying to get up. Has some intermittent numbness in feet. Denies MCNULTY, SOB, CP or other pain complaints. Last BM was Thursday. 03/11/23 Review of Systems reviewed, negative unless stated above in HPI Past Medical History Past Medical History: CVA/TIA, Hyperlipidemia, Prostate Disorder, Thyroid Disorder Additional Past Medical History / Comment(s): KIDNEY STONE AGE 33. Recent Stress Test History of Any Multi-Drug Resistant Organisms: None Reported Past Surgical History: Orthopedic Surgery, Tonsillectomy Additional Past Surgical History / Comment(s): RT ANKLE SX TOOK SOME BONE FROM LT HIP TO PUT IN LT ANKLE, JUS CATARACTS. Past Anesthesia/Blood Transfusion Reactions: No Reported Reaction Additional Past Anesthesia/Blood Transfusion Reaction / Comm: does not want blood transfusion Past Psychological History: No Psychological Hx Reported Smoking Status: Never smoker Past Alcohol Use History: Daily Past Drug Use History: None Reported - Past Family History Mother Family Medical History: Dementia, Diabetes Mellitus Brother(s) Family Medical History: Cancer Additional Family Medical History / Comment(s): "colon problems". colon cancer Medications and Allergies Home Medications Medication Instructions Recorded Confirmed Type Levothyroxine Sodium 88 mcg PO DAILY 07/20/18 03/09/23 History metFORMIN HCL ER [Glucophage XR] 1,000 mg PO W/SUPPER 07/20/18 03/09/23 History Amiodarone [Cordarone] 100 mg PO DAILY 03/09/23 03/09/23 History Rivaroxaban [Xarelto] 15 mg PO DAILY 03/09/23 03/10/23 History Allergies Allergy/AdvReac Type Severity Reaction Status Date / Time No Known Allergies Allergy Verified 03/09/23 22:18 Physical Exam Vitals: Vital Signs Temp Pulse Resp BP Pulse Ox 03/11/23 08:00 97.3 F L 81 18 147/75 94 L 03/11/23 04:50 97.5 F L 03/11/23 01:09 84 20 159/87 92 L 03/10/23 23:50 100.5 F H 03/10/23 20:00 98.0 F 87 18 132/73 94 L 03/10/23 15:23 97.9 F 94 18 154/83 96 Intake and Output 03/10/23 03/11/23 03/11/23 22:59 06:59 14:59 Intake Total 420 Output Total 450 Balance -450 420 Intake: Oral 420 Output: Urine 450 Other: Voiding Method Urinal # Voids 2 General: Well-developed, well-nourished, male, in no acute distress HEENT: NC/AT, external ears intact, hearing intact to conversational speech, neck supple Cardiovascular: B/L calves are supple, nontender, no cords, without peripheral edema, no cardiac distress; regular rate and rhythm Respiratory: Even and unlabored breathing on RA/O2; lungs are clear to aus cultation Abdomen: Soft, nontender, nondistended; bowel sounds active Genitourinary: no suprapubic tenderness Musculoskeletal: ROM WFL MMT 5/5 bilateral UE/LE Neurological: Alert and oriented x4. CN II-XII: Grossly intact. Speech is clear, fluent Reflexes symmetric bilateral UE/LE Coordination: finger to nose intact, slight decrease heel to menjivar bilaterally Sensation: Intact bilateral UE/LE EXCEPT decreased right foot Skin: Skin intact where visible to head, neck, and bilateral upper and lower extremities Psychiatric: Mood calm, affect appropriate, cooperative Results CBC & Chem 7: 03/09/23 19:45 03/09/23 19:45 Labs: Abnormal Lab Results - Last 24 Hours (Table) 03/10/23 03/10/23 03/10/23 Range/Units 12:13 16:38 20:01 POC Glucose (mg/dL) 144 H 180 H 203 H (70-110) mg/dL 03/11/23 Range/Units 05:33 POC Glucose (mg/dL) 136 H (70-110) mg/dL Microbiology - Last 24 Hours (Table) 03/09/23 19:45 Blood Culture - Preliminary Blood 03/09/23 19:45 Blood Culture - Preliminary Blood Assessment and Plan Assessment: # Debility secondary to COVID 19 infection -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 Monitor numbess in feet # DVT Proph- Xarelto # Your medical dx and management Disposition: Recommending IPR when medically stable. Patient is performing below his baseline function, able to tolerate 3 hrs of therapy a day and has good soci al support. Discussed with patient and son. Consult prepped by Jhoana Ledbetter PA-C Patient seen and examined by Dr. Mcgarry Thank you for consulting our services
[2023-03-11 11:39] LABS: Glucose,Whole Blood 138 mg/dL (70-110)
[2023-03-11 12:38] LABS: African American GFR (CKD) 44 (>60 ml/min/1.73 sqM); Anion Gap 8 mmol/L; Blood Urea Nitrogen 26 mg/dL (9-20); Carbon Dioxide 24 mmol/L (22-30); Chloride 106 mmol/L (98-107); Glucose 146 mg/dL (74-99); Non-African American GFR(CKD) 38 (>60 ml/min/1.73 sqM); Potassium 4.6 mmol/L (3.5-5.1); Sodium 138 mmol/L (137-145)
[2023-03-11 16:51] LABS: Glucose,Whole Blood 273 mg/dL (70-110)
--- NOTE | 2023-03-11 17:35 | P.PN ---
Progress Note - Text Progress Note Date: 03/11/23 Chief Complaint: fall This is a pleasant 87-year-old patient who follows with Dr Santamaria. Chronic stable medical condition includes hyperlipidemia, prior prostate cancer treated with radiation treatment, hypothyroid,. Patient is resident at [facility]. Rather independent. Patient's 2 sons Everardo Ambrose are at the bedside. Patient has gradually been slowing down. Up to 2 days ago had a fairly good appetite. Has been becoming slightly forgetful. Yesterday patient was sitting in a chair. Will start to get up and nightly he simply slid down. Denied any chest pain or palpitation for last day or 2 has been feeling tired a bit short of breath sore throat fever decreased appetite. Patient has longstanding intermittent diarrhea. Has not had extensive workup for the same. Does take Xarelto for atrial fibrillation. Patient tested for COVID in the ER. Patient this morning has complained of some lower back pain. When he moves. But not anything excruciating. Appears to be rather comfortable otherwise. March 11, 2023: Doing better. Appetite better. Up in a recliner. Did work with therapy. Walked about 60 feet. Sore throat better. Some low back pain. Tolerable. Spoke to son Richard at the bedside and the correctional casework specialist. Patient pr obably go to [facility] tomorrow. Active Medications Acetaminophen (Acetaminophen Tab 325 Mg Tab) 650 mg PO Q6HR PRN PRN Reason: Mild Pain or Fever > 100.5 Last Admin: 03/10/23 23:55 Dose: 650 mg Al Hydroxide/Mg Hydroxide (Mag Hydrox/Al Hydrox/Simeth 30 Ml Cup) 15 ml PO Q6HR PRN PRN Reason: Indigestion Alprazolam (Alprazolam 0.25 Mg Tab) 0.25 mg PO Q6HR PRN PRN Reason: Anxiety Amiodarone HCl (Amiodarone 100 Mg Tab) 100 mg PO DAILY [facility] Last Admin: 03/11/23 08:59 Dose: 100 mg Ascorbic Acid (Ascorbic Acid 500 Mg Tab) 500 mg PO BID [facility] Last Admin: 03/11/23 08:59 Dose: 500 mg Cholecalciferol (Cholecalciferol 125 Mcg (5000 Iu) Tablet) 125 mcg PO DAILY [facility] Last Admin: 03/11/23 08:59 Dose: 125 mcg Dexamethasone (Dexamethasone 2 Mg Tab) 6 mg PO DAILY [facility] Last Admin: 03/11/23 08:59 Dose: 6 mg Dextrose/Water (Dextrose 50% Syringe 50 Ml) 25 ml IVP PER PROTOCOL PRN; Protocol PRN Reason: Hypoglycemia Dextrose/Water (Dextrose 50% Syringe 50 Ml) 50 ml IVP PER PROTOCOL PRN; Protocol PRN Reason: Hypoglycemia Famotidine (Famotidine 20 Mg Tab) 20 mg PO DAILY [facility] Last Admin: 03/11/23 08:59 Dose: 20 mg Sodium Chloride (Saline 0.9%) 1,000 mls @ 75 mls/hr IV .[id number] [facility] Last Admin: 03/11/23 12:22 Dose: Not Given Insulin Aspart (Insulin Aspart (Novolog) 100 Unit/Ml Vial) 0 unit SQ AC-TID [facility]; Protocol Last Admin: 03/11/23 12:22 Dose: Not Given Lactulose (Lactulose 20 Gm/30 Ml Cup) 20 gm PO DAILY PRN PRN Reason: Constipation Levothyroxine Sodium (Levothyroxine 88 Mcg Tab) 88 mcg PO DAILY@0630 [facility] Last Admin: 03/11/23 06:01 Dose: 88 mcg Melatonin (Melatonin 3 Mg Tablet) 3 mg PO HS PRN PRN Reason: Insomnia Naloxone HCl (Naloxone 0.4 Mg/Ml 1 Ml Vial) 0.2 mg IV Q2M PRN PRN Reason: Opioid Reversal Ondansetron HCl (Ondansetron 4 Mg/2 Ml Vial) 4 mg IVP Q8HR PRN PRN Reason: Nausea And Vomiting Rivaroxaban (Rivaroxaban 15 Mg Tab) 15 mg PO DAILY [facility]; Protocol Last Admin: 03/11/23 08:59 Dose: 15 mg Social history: Lives at [facility]. Independent unit. Patient smoked for 17 years stopped at the age of 33. Less than 1 pack a day. Drinks about 2 beers a day. Retired from [employer]. Physical examination: VITAL SIGNS: 97.4, 77, 18, 140/91, 98% room air GENERAL: Up in a recliner, comfortable EYES: Pupils equal. Conjunctiva yoly l. HEENT: External appearance of nose and ears normal, oral cavity grossly normal. Decreased hearing NECK: JVD not raised; masses not palpable. HEART: First and second heart sounds are normal; no edema. LUNGS: Respiratory rate normal; clear to auscultation. ABDOMEN: Soft, nontender, liver spleen not palpable, no masses palpable. PSYCH: [Patient is able to answer simple questions. But forgetful. MUSCULOSKELETAL:No Clubbing/cyanosis;muscles-grossly intact. OA INVESTIGATIONS, reviewed in the clinical context: March 11, 2023: Potassium 4.6 BUN 26 creatinine 1.59 White count 15.3 hemoglobin 13.9 platelets 226 sodium 138 potassium 4.6 BUN 21 creatinine 1.62 UA protein 1+ Influenza type A, type B, RSV,-not detected COVID-19 PCR: Detected EKG tracing personally reviewed by me-normal sinus rhythm. Nonspecific T wave changes. Chest x-ray film personally reviewed by me-possible scant infiltrates Assessment and plan: -Acute COVID-19 pneumonitis. Patient has borderline hypoxia, with pulse ox 93% room air this morning. Will start the patient on dexamethasone 6 mg a day. Patient has a poor appetite. Sore throat.: Better -Relative hypoxia with pulse ox 93% room air.: Improving Dexamethasone -Clinical dehydration with decreased oral intake. IV fluids. -Primary osteoarthritis multiple joints Tylenol as needed -Low back pain patient slid off the chair. Some localized tenderness. Not much significant. X-ray of the thoracolumbar spine. Tylenol as needed. K-pad. -Chronic urine incontinence. 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 Accu-Cheks with sliding scale insulin. -Acute severe medical debility. Prior to this presentation patient was rather independent. Yesterday when he went down he was so weak that he has to his 2 adult sons were not able to pick it up. PT OT. For IPR Discussed with son Richard at the bedside and correctional casework specialist. Patient should be able to go to IPR. Spoke to nurse Minor to verify if patient takes metformin at home. According to patient he has not been taking metformin for last 2 months.
[2023-03-11] MEDS: LACTULOSE 20 GM/30 ML CUP PO PRN (19:45)
[2023-03-11 20:29] LABS: Glucose,Whole Blood 272 mg/dL (70-110)
[2023-03-12 02:25] VITALS: RESP 20
[2023-03-12 05:55] LABS: Glucose,Whole Blood 200 mg/dL (70-110)
[2023-03-12 10:02] VITALS: BP 169/79; PULSE 71; TEMP 97.5
[2023-03-12] MEDS ORDERED: cloNIDine HCL 0.1 MG TAB PO SCH (11:00)
[2023-03-12 11:34] LABS: Glucose,Whole Blood 188 mg/dL (70-110)
[2023-03-12] MEDS: METOPROLOL TARTRATE 25 MG TAB PO SCH (11:48)
--- NOTE | 2023-03-12 12:43 | P.DS ---
Providers Date of admission: 03/09/23 21:51 Expected date of discharge: 03/12/23 Attending physician: Joseluis Garcia Consults: 03/10/23 16:22 Consult Physician Routine Consulting Provider: Burke Youssef Consult Reason/Comments: [facility] Do you want consulting provider notified?: Yes Primary care physician: Marlo [facility] Course: Chief Complaint: fall This is a pleasant 87-year-old patient who follows with Dr Santamaria. Chronic stable medical condition includes hyperlipidemia, prior prostate cancer treated with radiation treatment, hypothyroid,. Patient is resident at [facility]. Rather independent. Patient's 2 sons Everardo Ambrose are at the bedside. Patient has gradually been slowing down. Up to 2 days ago had a fairly good appetite. Has been becoming slightly forgetful. Yesterday patient was sitting in a chair. Will start to get up and nightly he simply slid down. Denied any chest pain or palpitation for last day or 2 has been feeling tired a bit short of breath sore throat fever decreased appetite. Patient has longstanding intermittent diarrhea. Has not had extensive workup for the same. Does take Xarelto for atrial fibrillation. Patient tested for COVID in the ER. Patient this morning has complained of some lower back pain. When he moves. But not anything excruciating. Appears to be rather comfortable otherwise. March 11, 2023: Doing better. Appetite better. Up in a recliner. Did work with therapy. Walked about 60 feet. Sore throat better. Some low back pain. Tolerable. Spoke to kari Ramos at the bedside and the case operator. Patient probably go to [facility] tomorrow. March 12, 2023: Doing well. Up in a chair. Pain well-controlled. Tolerating diet. No respiratory symptoms. Pulse ox good. Will DC steroids. Blood pressure running on the higher side. Will start Lopressor 25 mg twice daily. Patient has been accepted at [facility] rehab at [facility]. Patient's both sons Everardo Lacey were updated. Also spoke to the social science teacher. Discussion and discharge planning more than 35 minutes Social history: Lives at [facility]. Independent unit. Patient smoked for 17 years stopped at the age of 33. Less than 1 pack a day. Drinks about 2 beers a day. Retired from [employer]. Physical examination: VITAL SIGNS: 97.5, 71, 20, 169 x 79, 97% room air GENERAL: Up in a chair, comfortable EYES: Pupils equal. Conjunctiva yoly l. HEENT: External appearance of nose and ears normal, oral cavity grossly normal. Decreased hearing NECK: JVD not raised; masses not palpable. HEART: First and second heart sounds are normal; no edema. LUNGS: Respiratory rate normal; clear to auscultation. ABDOMEN: Soft, nontender, liver spleen not palpable, no masses palpable. PSYCH: [Patient is able to answer simple questions. But forgetful. MUSCULOSKELETAL:No Clubbing/cyanosis;muscles-grossly intact. OA INVESTIGATIONS, reviewed in the clinical context: March 11, 2023: Potassium 4.6 BUN 26 creatinine 1.59 White count 15.3 hemoglobin 13.9 platelets 226 sodium 138 potassium 4.6 BUN 21 creatinine 1.62 UA protein 1+ Influenza type A, type B, RSV,-not detected COVID-19 PCR: Detected EKG tracing personally reviewed by me-normal sinus rhythm. Nonspecific T wave changes. Chest x-ray film personally reviewed by me-possible scant infiltrates Assessment and plan: -Acute COVID-19 pneumonitis. Patient has borderline hypoxia, with pulse ox 93% room air this morning. Will start the patient on dexamethasone 6 mg a day. Patient has a poor appetite. Sore throat.: Improved -Relative hypoxia with pulse ox 93% room air.: Resolved Dexamethasone -Clinical dehydration with decreased oral intake. Color improved IV fluids. -Primary osteoarthritis multiple joints Tylenol as needed -Low back pain patient slid off the chair. Some localized tenderness. Not much significant. X-ray of the thoracolumbar spine. Tylenol as needed. K-pad. -Chronic urine incontinence. 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 Diet controlled. -Acute severe medical debility. Prior to this presentation patient was rather independent. Yesterday when he went down he was so weak that he has to his 2 adult sons were not able to pick it up. PT OT. For IPR -Medical POA: Abhijit Ambrose -DNR Disposition: Inpatient rehab at [facility]. Plan - Discharge Summary Discharge Rx Participant: No New Discharge Prescriptions: New INSULIN ASPART (NovoLOG) [NovoLOG (formulary)] 0 unit SQ AC-TID each Acetaminophen Tab [Tylenol] 650 mg PO Q6HR PRN tab PRN Reason: Mild Pain Or Fever > 100.5 Cholecalciferol [Vitamin D3 (125 Mcg = 5000 Iu)] 125 mcg PO DAILY tab Famotidine [Pepcid] 20 mg PO DAILY tab Ascorbic Acid [Vitamin C] 500 mg PO BID tab Continue Levothyroxine Sodium 88 mcg PO DAILY Amiodarone [Cordarone] 100 mg PO DAILY Rivaroxaban [Xarelto] 15 mg PO DAILY Discontinued metFORMIN HCL ER [Glucophage XR] 1,000 mg PO W/SUPPER Discharge Medication List Levothyroxine Sodium 88 mcg PO DAILY 07/20/18 [History] Amiodarone [Cordarone] 100 mg PO DAILY 03/09/23 [History] Rivaroxaban [Xarelto] 15 mg PO DAILY 03/09/23 [History] Acetaminophen Tab [Tylenol] 650 mg PO Q6HR PRN tab 03/12/23 [Rx] Ascorbic Acid [Vitamin C] 500 mg PO BID tab 03/12/23 [Rx] Cholecalciferol [Vitamin D3 (125 Mcg = 5000 Iu)] 125 mcg PO DAILY tab 03/12/23 [Rx] Famotidine [Pepcid] 20 mg PO DAILY tab 03/12/23 [Rx] INSULIN ASPART (NovoLOG) [NovoLOG (formulary)] 0 unit SQ AC-TID each 03/12/23 [Rx] Follow up Appointment(s)/Referral(s): Marlo Santamaria DO [Primary Care Provider] - 1 Week Patient Instructions/Handouts: Fall Prevention for Older Adults (ED), Weakness (ED) Discharge/Stand Alone Forms: Who Do I Call?, Help In The Home
== END 2023-03-12 13:15 | disposition home or self-care (01) | DRG 177 ==
LOC: EC 18:20 → 3SCARD 21:51
PROVIDERS: ADMIT Hospitalist; ATTEND Hospitalist
DX: U07.1 COVID-19 (principal); J12.82 Pneumonia due to coronavirus disease 2019; F03.90 Unspecified dementia, unspecified severity, without behavioral disturbance, psychotic disturbance, mood disturbance, and anxiety; I48.0 Paroxysmal atrial fibrillation; E11.9 Type 2 diabetes mellitus without complications; E89.0 Postprocedural hypothyroidism; E86.0 Dehydration; E78.5 Hyperlipidemia, unspecified; R09.02 Hypoxemia; M15.9 Polyosteoarthritis, unspecified; N39.498 Other specified urinary incontinence; I44.30 Unspecified atrioventricular block; R53.81 Other malaise; I51.7 Cardiomegaly; R19.7 Diarrhea, unspecified; M54.50 Low back pain, unspecified; Z66 Do not resuscitate; I25.10 Atherosclerotic heart disease of native coronary artery without angina pectoris; W18.30XA Fall on same level, unspecified, initial encounter; Z79.890 Hormone replacement therapy; Y92.122 Bedroom in nursing home as the place of occurrence of the external cause; Z85.46 Personal history of malignant neoplasm of prostate; Z87.891 Personal history of nicotine dependence; Z79.84 Long term (current) use of oral hypoglycemic drugs; Z79.01 Long term (current) use of anticoagulants; Z86.73 Personal history of transient ischemic attack (TIA), and cerebral infarction without residual deficits; I25.2 Old myocardial infarction; Z95.0 Presence of cardiac pacemaker; Z79.899 Other long term (current) drug therapy; Z92.3 Personal history of irradiation
CPT/HCPCS: 36415; 71046; 72070; 72100; 80048; 80053; 81001; 82550; 82553; 83605; 83735; 84484; 85025; 85610; 85730; 87040; 87636; 93005; 96360; 99285

== ENCOUNTER 2023-04-29 12:35 | Observation (INO) | payer MEDICARE ==
[2023-04-29 15:00] LABS: Basophils # (A) 0.1 k/uL (0-0.2); Basophils % (A) 1 %; Eosinophils # (A) 0.1 k/uL (0-0.7); Eosinophils % (A) 1 %; HCT 37.6 % (39.0-53.0); HGB 12.5 gm/dL (13.0-17.5); Lymphocytes # (A) 1.2 k/uL (1.0-4.8); Lymphocytes % (A) 10 %; MCH 27.1 pg (25.0-35.0); MCHC 33.2 g/dL (31.0-37.0); MCV 81.8 fL (80.0-100.0); Monocytes # (A) 0.9 k/uL (0-1.0); Monocytes % (A) 8 %; Neutrophils # (A) 9.3 k/uL (1.3-7.7); Neutrophils % (A) 79 %; Platelet Count 181 k/uL (150-450); RBC 4.59 m/uL (4.30-5.90); RDW 13.9 % (11.5-15.5); WBC 11.8 k/uL (3.8-10.6)
--- NOTE | 2023-04-29 15:12 | ED ---
Weakness HPI - General Source: patient, family, EMS, RN notes reviewed Mode of arrival: EMS Limitations: physical limitation <Abhijit Watters - Last Filed: 04/29/23 15:09> <Alan Jones - Last Filed: 04/29/23 20:15> - General Chief complaint: Weakness Stated complaint: Weakness, Post Surgical Pain Time Seen by Provider: 04/29/23 12:51 - History of Present Illness Initial comments: 87-year-old male presents emergency department with chief complaint of weakness. Patient had a kyphoplasty performed by Dr. Cardona on Thursday in which patient has been dealing with a fracture in his back for over a month. Patient states that he felt fine after surgery he attempted to lay in his bed last night in which she was very uncomfortable he states he went down to eat and had to be helped back to his room and states he has not moved since that. Family states that he seemed confused somewhat but has no reports of fevers chills night sweats no URI symptoms states he has urinary frequency but this is ongoing. Patient denies any focal weakness denies chest pain shortness of breath (Abhijit Watters) - Related Data Home Medications Medication Instructions Recorded Confirmed Levothyroxine Sodium 88 mcg PO DAILY 07/20/18 04/29/23 Amiodarone [Cordarone] 100 mg PO DAILY 03/09/23 04/29/23 Rivaroxaban [Xarelto] 15 mg PO DAILY 03/09/23 04/29/23 INSULIN ASPART (NovoLOG) [NovoLOG See Protocol SQ AC-TID 04/29/23 04/29/23 (formulary)] Previous Rx's Medication Instructions Recorded Acetaminophen Tab [Tylenol] 650 mg PO Q6HR PRN tab 03/12/23 Ascorbic Acid [Vitamin C] 500 mg PO BID tab 03/12/23 Cholecalciferol [Vitamin D3 (125 125 mcg PO DAILY tab 03/12/23 Mcg = 5000 Iu)] Famotidine [Pepcid] 20 mg PO DAILY tab 03/12/23 Allergies Allergy/AdvReac Type Severity Reaction Status Date / Time No Known Allergies Allergy Verified 04/29/23 14:01 Review of Systems ROS Other: All systems not noted in ROS Statement are negative. <Abhijit Watters - Last Filed: 04/29/23 15:09> ROS Other: All systems not noted in ROS Statement are negative. <RobertAlan - Last Filed: 04/29/23 20:15> ROS Statement: Those systems with pertinent positive or pertinent negative responses have been documented in the HPI. Past Medical History Past Medical History: CVA/TIA, Hyperlipidemia, Prostate Disorder, Thyroid Disorder Additional Past Medical History / Comment(s): KIDNEY STONE AGE 33. Recent Str ess Test History of Any Multi-Drug Resistant Organisms: None Reported Past Surgical History: Orthopedic Surgery, Tonsillectomy Additional Past Surgical History / Comment(s): RT ANKLE SX TOOK SOME BONE FROM LT HIP TO PUT IN LT ANKLE, JUS CATARACTS. spinal fx repair 04/27/23 Past Anesthesia/Blood Transfusion Reactions: No Reported Reaction Additional Past Anesthesia/Blood Transfusion Reaction / Comment(s): does not want blood transfusion Past Psychological History: No Psychological Hx Reported Smoking Status: Never smoker Past Alcohol Use History: Daily Past Drug Use History: None Reported - Past Family History Mother Family Medical History: Dementia, Diabetes Mellitus Brother(s) Family Medical History: Cancer Additional Family Medical History / Comment(s): "colon problems". colon cancer <Abhijit Watters - Last Filed: 04/29/23 15:09> General Exam Limitations: no limitations General appearance: alert, in no apparent distress Head exam: Present: atraumatic, normocephalic, normal inspection Eye exam: Present: normal appearance, PERRL, EOMI. Absent: scleral icterus, conjunctival injection, periorbital swelling Neck exam: Present: normal inspection. Absent: tenderness, meningismus, ly mphadenopathy Respiratory exam: Present: normal lung sounds bilaterally. Absent: respiratory distress, wheezes, rales, rhonchi, stridor Cardiovascular Exam: Present: irregular rhythm, normal heart sounds. Absent: regular rate, normal rhythm, systolic murmur, diastolic murmur, rubs, gallop, clicks GI/Abdominal exam: Present: soft, normal bowel sounds. Absent: distended, tenderness, guarding, rebound, rigid Extremities exam: Present: normal inspection Back exam: Absent: normal inspection (2 small openings in the lumbar region with no surrounding erythema or drainage) Neurological exam: Present: alert, oriented X3 <Abhijit Watters - Last Filed: 04/29/23 15:09> Course Vital Signs 04/29/23 04/29/23 04/29/23 12:40 15:18 17:12 Temperature 98.1 F Pulse Rate 77 71 69 Respiratory 18 14 14 Rate Blood Pressure 187/95 162/90 141/75 O2 Sat by Pulse 93 L 95 93 L Oximetry 04/29/23 19:22 Temperature Pulse Rate 75 Respiratory 16 Rate Blood Pressure 139/53 O2 Sat by Pulse 95 Oximetry EKG Findings - EKG Comments: EKG Findings:: EKG performed at 12: 50 A-fib with a rate of 78 QRS 104 QT/QTc 386/419 - EKG Results: EKG: interpreted by ERMD <Abhijit Watters - Last Filed: 04/29/23 15:09> Medical Decision Making - Lab Data Result diagrams: 04/29/23 14:33 <Abhijit Watters - Last Filed: 04/29/23 15:09> - Lab Data Result diagrams: 04/29/23 14:33 04/29/23 14:33 <Alan Jones - Last Filed: 04/29/23 20:15> - Medical Decision Making Patient signed out to me pending results of urinalysis and imaging. Patient received a L5 laminectomy on April 27, 2023. Today awoke and was having generalized spinal pain as well as generalized weakness. Presents for further evaluation at this time. Surgery was completed by Dr. Duval. Initially evaluated by midlevel provider. Signed out to me pending results of imaging. Vital signs within acceptable limits. Patient is currently complaining of pain in the spine.Patient's spine was extensively evaluated by midlevel provider Abhijit as well as patient's son Richard and exam was unremarkable. Laboratory studies were remarkable for CKD which is unchanged from baseline. U rinalysis relatively unremarkable. BNP slightly elevated to 1930. Troponin is not elevated. Lactic acid is within acceptable limits. Patient's lumbar spine x-ray as interpreted by myself negative for any obvious traumatic injury. I updated the patient on the results of his workup. He was given additional analgesia medications. Patient's other son, who is also an orthopedic surgeon at our facility Dr. Abhijit Ambrose presented at bedside at this time. We discussed the patient's workup and both agreed to admit the patient observation for weakness and back pain. Dr. Cardona will be consulted. Patient as well as family are requesting [facility] is Dr. Garcia is off who normally covers for Dr. Santamarai. Therefore patient will be admitted to [facility] [place] [facility]. I spoke with Dr. Peace who accepted the admission. Diagnosis/symptom? @ -Weakness, postop pain Acute, or Chronic, or Acute on Chronic? @ -Acute Uncomplicated (without systemic symptoms) or Complicated (systemic symptoms)? @ -Complicated Side effects of treatment? @ -None Exacerbation, Progression, or Severe Exacerbation] @ -No Poses a threat to life or bodily function? @ -Possibly (Alan Jones) - Lab Data Lab Results 04/29/23 04/29/23 04/29/23 Range/Units 14:33 14:33 14:33 WBC 11.8 H (3.8-10.6) k/uL RBC 4.59 (4.30-5.90) m/uL Hgb 12.5 L (13.0-17.5) gm/dL Hct 37.6 L (39.0-53.0) % MCV 81.8 (80.0-100.0) fL MCH 27.1 (25.0-35.0) pg MCHC 33.2 (31.0-37.0) g/dL RDW 13.9 (11.5-15.5) % Plt Count 181 (150-450) k/uL MPV 9.0 Neutrophils % 79 % Lymphocytes % 10 % Monocytes % 8 % Eosinophils % 1 % Basophils % 1 % Neutrophils # 9.3 H (1.3-7.7) k/uL Lymphocytes # 1.2 (1.0-4.8) k/uL Monocytes # 0.9 (0-1.0) k/uL Eosinophils # 0.1 (0-0.7) k/uL Basophils # 0.1 (0-0.2) k/uL Sodium 138 (137-145) mmol/L Potassium 4.0 (3.5-5.1) mmol/L Chloride 103 (98-107) mmol/L Carbon Dioxide 30 (22-30) mmol/L Anion Gap 5 mmol/L BUN 21 H (9-20) mg/dL Creatinine 1.54 H (0.66-1.25) mg/dL Est GFR (CKD-EPI)AfAm 46 (>60 ml/min/1.73 sqM) Est GFR (CKD-EPI)NonAf 39 (>60 ml/min/1.73 sqM) Glucose 179 H (74-99) mg/dL Plasma Lactic Acid Alexei (0.7-2.0) mmol/L Calcium 8.7 (8.4-10.2) mg/dL Magnesium 1.7 (1.6-2.3) mg/dL Total Bilirubin 0.7 (0.2-1.3) mg/dL AST 26 (17-59) U/L ALT 15 (4-49) U/L Alkaline Phosphatase 86 (38-126) U/L Troponin I (0.000-0.034) ng/mL NT-Pro-B Natriuret Pep pg/mL Total Protein 6.9 (6.3-8.2) g/dL Albumin 3.6 (3.5-5.0) g/dL Urine Color Colorless Urine Appearance Clear (Clear) Urine pH 6.5 (5.0-8.0) Ur Specific [place] 1.015 (1.001-1.035) Urine Protein 1+ H (Negative) Urine Glucose (UA) 2+ H (Negative) Urine Ketones Negative (Negative) Urine Blood Trace H (Negative) Urine Nitrite Negative (Negative) Urine Bilirubin Negative (Negative) Urine Urobilinogen <2.0 (<2.0) mg/dL Ur Leukocyte Esterase Negative (Negative) Urine RBC 1 (0-5) /hpf Urine WBC <1 (0-5) /hpf Urine Bacteria Rare H (None) /hpf Hyaline Casts 1 (0-2) /lpf Urine Mucus Rare H (None) /hpf Influenza Type A (PCR) (Not Detectd) Influenza Type B (PCR) (Not Detectd) RSV (PCR) (Not Detectd) SARS-CoV-2 (PCR) (Not Detectd) 04/29/23 04/29/23 04/29/23 Range/Units 14:33 14:33 14:33 WBC (3.8-10.6) k/uL RBC (4.30-5.90) m/uL Hgb (13.0-17.5) gm/dL Hct (39.0-53.0) % MCV (80.0-100.0) fL MCH (25.0-35.0) pg MCHC (31.0-37.0) g/dL RDW (11.5-15.5) % Plt Count (150-450) k/uL MPV Neutrophils % % Lymphocytes % % Monocytes % % Eosinophils % % Basophils % % Neutrophils # (1.3-7.7) k/uL Lymphocytes # (1.0-4.8) k/uL Monocytes # (0-1.0) k/uL Eosinophils # (0-0.7) k/uL Basophils # (0-0.2) k/uL Sodium (137-145) mmol/L Potassium (3.5-5.1) mmol/L Chloride (98-107) mmol/L Carbon Dioxide (22-30) mmol/L Anion Gap mmol/L BUN (9-20) mg/dL Creatinine (0.66-1.25) mg/dL Est GFR (CKD-EPI)AfAm (>60 ml/min/1.73 sqM) Est GFR (CKD-EPI)NonAf (>60 ml/min/1.73 sqM) Glucose (74-99) mg/dL Plasma Lactic Acid Alexei 1.1 (0.7-2.0) mmol/L Calcium (8.4-10.2) mg/dL Magnesium (1.6-2.3) mg/dL Total Bilirubin (0.2-1.3) mg/dL AST (17-59) U/L ALT (4-49) U/L Alkaline Phosphatase (38-126) U/L Troponin I 0.020 (0.000-0.034) ng/mL NT-Pro-B Natriuret Pep 1930 pg/mL Total Protein (6.3-8.2) g/dL Albumin (3.5-5.0) g/dL Urine Color Urine Appearance (Clear) Urine pH (5.0-8.0) Ur Specific [place] (1.001-1.035) Urine Protein (Negative) Urine Glucose (UA) (Negative) Urine Ketones (Negative) Urine Blood (Negative) Urine Nitrite (Negative) Urine Bilirubin (Negative) Urine Urobilinogen (<2.0) mg/dL Ur Leukocyte Esterase (Negative) Urine RBC (0-5) /hpf Urine WBC (0-5) /hpf Urine Bacteria (None) /hpf Hyaline Casts (0-2) /lpf Urine Mucus (None) /hpf Influenza Type A (PCR) (Not Detectd) Influenza Type B (PCR) (Not Detectd) RSV (PCR) (Not Detectd) SARS-CoV-2 (PCR) (Not Detectd) 04/29/23 Range/Units 17:23 WBC (3.8-10.6) k/uL RBC (4.30-5.90) m/uL Hgb (13.0-17.5) gm/dL Hct (39.0-53.0) % MCV (80.0-100.0) fL MCH (25.0-35.0) pg MCHC (31.0-37.0) g/dL RDW (11.5-15.5) % Plt Count (150-450) k/uL MPV Neutrophils % % Lymphocytes % % Monocytes % % Eosinophils % % Basophils % % Neutrophils # (1.3-7.7) k/uL Lymphocytes # (1.0-4.8) k/uL Monocytes # (0-1.0) k/uL Eosinophils # (0-0.7) k/uL Basophils # (0-0.2) k/uL Sodium (137-145) mmol/L Potassium (3.5-5.1) mmol/L Chloride (98-107) mmol/L Carbon Dioxide (22-30) mmol/L Anion Gap mmol/L BUN (9-20) mg/dL Creatinine (0.66-1.25) mg/dL Est GFR (CKD-EPI)AfAm (>60 ml/min/1.73 sqM) Est GFR (CKD-EPI)NonAf (>60 ml/min/1.73 sqM) Glucose (74-99) mg/dL Plasma Lactic Acid Alexei (0.7-2.0) mmol/L Calcium (8.4-10.2) mg/dL Magnesium (1.6-2.3) mg/dL Total Bilirubin (0.2-1.3) mg/dL AST (17-59) U/L ALT (4-49) U/L Alkaline Phosphatase (38-126) U/L Troponin I (0.000-0.034) ng/mL NT-Pro-B Natriuret Pep pg/mL Total Protein (6.3-8.2) g/dL Albumin (3.5-5.0) g/dL Urine Color Urine Appearance (Clear) Urine pH (5.0-8.0) Ur Specific [place] (1.001-1.035) Urine Protein (Negative) Urine Glucose (UA) (Negative) Urine Ketones (Negative) Urine Blood (Negative) Urine Nitrite (Negative) Urine Bilirubin (Negative) Urine Urobilinogen (<2.0) mg/dL Ur Leukocyte Esterase (Negative) Urine RBC (0-5) /hpf Urine WBC (0-5) /hpf Urine Bacteria (None) /hpf Hyaline Casts (0-2) /lpf Urine Mucus (None) /hpf Influenza Type A (PCR) Not Detected (Not Detectd) Influenza Type B (PCR) Not Detected (Not Detectd) RSV (PCR) Not Detected (Not Detectd) SARS-CoV-2 (PCR) Not Detected (Not Detectd) Disposition <Abhijit Watters - Last Filed: 04/29/23 15:09> Time of Disposition: 17:24 <Alan Jones - Last Filed: 04/29/23 20:15> Clinical Impression: Weakness, Post-op pain Disposition: ADMITTED IP TO THIS HOSP Condition: Stable
[2023-04-29 15:16] LABS: ALT 15 U/L (4-49); AST 26 U/L (17-59); African American GFR (CKD) 46 (>60 ml/min/1.73 sqM); Albumin 3.6 g/dL (3.5-5.0); Alkaline Phosphatase 86 U/L (38-126); Anion Gap 5 mmol/L; Blood Urea Nitrogen 21 mg/dL (9-20); Calcium 8.7 mg/dL (8.4-10.2); Carbon Dioxide 30 mmol/L (22-30); Chloride 103 mmol/L (98-107); Glucose 179 mg/dL (74-99); Magnesium 1.7 mg/dL (1.6-2.3); Non-African American GFR(CKD) 39 (>60 ml/min/1.73 sqM); Sodium 138 mmol/L (137-145); Total Bilirubin 0.7 mg/dL (0.2-1.3); Total Protein 6.9 g/dL (6.3-8.2)
--- NOTE | 2023-04-29 16:08 | XR ---
EXAMINATION TYPE: XR lumbar spine 2 or 3V DATE OF EXAM: 04/29/2023 3:44 PM CLINICAL INDICATION:Male, 87 years old with history of pain, recent kyphoplasty; COMPARISON: 03/10/2023 TECHNIQUE: XR lumbar spine 2 or 3V - Frontal, lateral and coned in L5-S1 lateral views of the spine. FINDINGS: No evidence of any acute osseous pathology. No evidence of loss of vertebral body height i s seen. There is normal alignment of the lumbar vertebral bodies. Mild scattered disc space narrowing . Multilevel marginal osteophyte formation throughout the visualized spine. There is facet joint arth ropathy throughout the spine. Scattered at least mild neural foraminal stenosis. Vertebroplasty ni es to the bowel 5 vertebrae. Atherosclerosis of the arterial vasculature. IMPRESSION: 1. No acute fracture. 2. Moderate multilevel disc degeneration. 3. Vertebroplasty changes to the L5 vertebrae.
[2023-04-29 16:38] LABS: Appearance,Urine Clear (Clear); Bacteria,Urine Rare /hpf; Bilirubin,Urine Negative (Negative); Blood,Urine Trace (Negative); Color,Urine Colorless; Glucose,Urine (UA) 2+ (Negative); Hyaline Casts,Urine 1 /lpf (0-2); Ketones,Urine Negative (Negative); Leukocyte Esterase,Urine Negative (Negative); Mucus,Urine Rare /hpf; Nitrite,Urine Negative (Negative); PH, Urine 6.5 (5.0-8.0); Protein,Urine 1+ (Negative); RBC,Urine 1 /hpf (0-5); Specific Gravity,Urine 1.015 (1.001-1.035); Urobilinogen,Urine <2.0 mg/dL (<2.0); WBC,Urine <1 /hpf (0-5)
[2023-04-29] MEDS: MORPHINE SULFATE 2 MG/ML SYRINGE IVP STA (16:39)
[2023-04-29] MEDS ORDERED: MORPHINE SULFATE 4 MG/ML SYRINGE IV PRN (17:47)
[2023-04-29] MEDS ORDERED: ONDANSETRON 4 MG/2 ML VIAL IVP PRN (17:47)
[2023-04-29] MEDS ORDERED: NALOXONE 0.4 MG/ML 1 ML VIAL IV PRN (17:47)
[2023-04-29] MEDS ORDERED: HYDROcodone/APAP 5-325MG 1 EACH TAB PO PRN (18:35)
[2023-04-29] MEDS ORDERED: MELATONIN 3 MG TABLET PO PRN (18:35)
--- NOTE | 2023-04-29 18:43 | P.HPIM ---
History of Present Illness H&P Date: 04/29/23 Chief Complaint: abdominal pain Patient is a 87-year-old male with prior CVA, a fib anticoagulated with xarelto, DM 2 on metformin, dyslipidemia, prior prostate cancer, and hypothyroidism who lives at [facility]. Patient had a kyphoplasty performed on 04/27/2023 due to vertebral compression fracture. He presented to the hospital today with complaints of decreased appetite and increasing pain with lower extremity weakness. On arrival to the ER his vital signs were remarkable for hypertension with a blood pressure of 187/95. Initial laboratory analysis in the emergency department included CBC, CMP, and troponin which were remarkable for white blood cell count 11.8, hemoglobin 12.5, and creatinine 1.54 (baseline creatinine 1.6). He underwent a urinalysis which was remarkable for protein and glucose. In the emergency department he received a dose of morphine. Arrangements were made for observation. Patient seen and examined at bedside with son present. He initially was dpong okay after his kyphoplasty but today was struggling a bit more. He complains of abdominal pain and back pain when moving. He had decreased appetitie today. He deneis any chest pain, SOB, nausea, or diarrhea. He has constipation and has not had a BM in 3 days. He is feeling more weak and fatigued, but is not worried about a stroke. He had COVID about 1 month ago and required rehab a [facility] where he suffered a fall. He had a L5 vertebral compression fracture with outpatient kyphoplasty on 04/27/23. He has frequent urinary issues since having his prostate cancer, but nothing is new. He has been using a walker for the last 1 month. Vital signs reviewed General: nontoxic, no distress, appears younger than stated age Derm: warm, dry Eyes: EOMI, no lid lag, anicteric sclera, pupils equal round reactive to light ENT: Nose and ears atraumatic Cardiovascular: S1S2 reg, no murmur, no edema Lungs: decreased bs bilateral, no rhonchi, no rales, no wheeze, no accessory muscle use Abdominal: + distended, soft, nontender to palpation, no guarding Ext: no gross muscle atrophy, no contractures Neuro: CN II-XII grossly intact, No focal neuro deficits Psych: Alert, oriented, appropriate affect Assessment/Plan: Abdominal pain with back pain in the setting of recent kypho generalized weakness - check abdominal x-ray - consult orthospine - Tylenol 325 mg every 6 hours as needed for pain, Fontanelle 5/325 for moderate pain, and morphine 4 mg IV every 4 hours for severe pain - stop IVF - PT/OT evaluation Lower extremity edema P. A fib - check BNP, CXR, and echo - resume Xarelto - Amio Hypothyroid - levothyroxine 88 mcg DM 2 - SSI - check A1C Chronic: Dyslipidemia Prior prostate cancer Kidney stone Prior CVA Imaging: As per HPI Data Review: as per HPI The patient is placed in observation with an anticipated less than 2 midnight stay for evaluation of abdominal pain and weakness. Surrogate decision-maker: Richard or Abhijit CODE STATUS:full DVT prophylaxis: Xarelto Anticipated discharge date: in 24-48 hours pending clinical course Anticipated discharge place: home with home health This dictation was prepared using [address] voice recognition software. Though every attempt is made to correct errors during dictation some may still exist. Past Medical History Past Medical History: Atrial Fibrillation, CVA/TIA, Diabetes Mellitus, Hyperlipidemia, Prostate Disorder, Thyroid Disorder Additional Past Medical History / Comment(s): KIDNEY STONE AGE 33. Recent Stress Test History of Any Multi-Drug Resistant Organisms: None Reported Past Surgical History: Orthopedic Surgery, Tonsillectomy Additional Past Surgical History / Comment(s): RT ANKLE SX TOOK SOME BONE FROM LT HIP TO PUT IN LT ANKLE, JUS CATARACTS. L5 kyphoplasty 04/27/23 Past Anesthesia/Blood Transfusion Reactions: No Reported Reaction Additional Past Anesthesia/Blood Transfusion Reaction / Comment(s): does not want blood transfusion Past Psychological History: No Psychological Hx Reported Smoking Status: Never smoker Past Alcohol Use History: Daily Past Drug Use History: None Reported - Past Family History Mother Family Medical History: Dementia, Diabetes Mellitus Brother(s) Family Medical History: Cancer Additional Family Medical History / Comment(s): "colon problems". colon cancer Medications and Allergies Home Medications Medication Instructions Recorded Confirmed Type Levothyroxine Sodium 88 mcg PO DAILY 07/20/18 04/29/23 History Amiodarone [Cordarone] 100 mg PO DAILY 03/09/23 04/29/23 History Rivaroxaban [Xarelto] 15 mg PO DAILY 03/09/23 04/29/23 History Acetaminophen Tab [Tylenol] 650 mg PO Q6HR PRN tab 03/12/23 04/29/23 Rx Ascorbic Acid [Vitamin C] 500 mg PO BID tab 03/12/23 04/29/23 Rx Cholecalciferol [Vitamin D3 (125 125 mcg PO DAILY tab 03/12/23 04/29/23 Rx Mcg = 5000 Iu)] Famotidine [Pepcid] 20 mg PO DAILY tab 03/12/23 04/29/23 Rx INSULIN ASPART (NovoLOG) [NovoLOG See Protocol SQ AC-TID 04/29/23 04/29/23 History (formulary)] Allergies Allergy/AdvReac Type Severity Reaction Status Date / Time No Known Allergies Allergy Verified 04/29/23 14:01 Physical Exam Osteopathic Statement: *. No significant issues noted on an osteopathic structural exam other than those noted in the History and Physical/Consult. Vitals: Vital Signs Temp Pulse Resp BP Pulse Ox 04/29/23 17:12 69 14 141/75 93 L 04/29/23 15:18 71 14 162/90 95 04/29/23 12:40 98.1 F 77 18 187/95 93 L Intake and Output 04/29/23 04/29/23 04/29/23 06:59 14:59 22:59 Other: Weight 90.718 kg Results CBC & Chem 7: 04/29/23 14:33 04/29/23 14:33 Labs: Abnormal Lab Results - Last 24 Hours (Table) 04/29/23 04/29/23 04/29/23 Range/Units 14:33 14:33 14:33 WBC 11.8 H (3.8-10.6) k/uL Hgb 12.5 L (13.0-17.5) gm/dL Hct 37.6 L (39.0-53.0) % Neutrophils # 9.3 H (1.3-7.7) k/uL BUN 21 H (9-20) mg/dL Creatinine 1.54 H (0.66-1.25) mg/dL Glucose 179 H (74-99) mg/dL Urine Protein 1+ H (Negative) Urine Glucose (UA) 2+ H (Negative) Urine Blood Trace H (Negative) Urine Bacteria Rare H (None) /hpf Urine Mucus Rare H (None) /hpf
--- NOTE | 2023-04-29 18:56 | XR ---
EXAMINATION TYPE: XR abdomen acute w cxr DATE OF EXAM: 04/29/2023 6:45 PM CLINICAL INDICATION:Male, 87 years old with history of pain, concerns for constipation; [facility] COMPARISON: None. TECHNIQUE: Two radiographic views of the abdomen (upright and supine) and a frontal chest radiograph were obtained. FINDINGS CHEST: Lungs/Pleura: The lungs are clear. There is no evidence of pleural effusion, focal consolidation or p neumothorax. Mediastinum: Unremarkable. Loop recorder present. Vasculature: Normal. Heart: Normal in size. Musculoskeletal: The osseous structures are intact. Other findings: No significant. FINDINGS ABDOMEN: Bowel gas pattern: Mild amount stool in the right colon Normal without dilated loops of small or larg e bowel. Fecal material and gas are demonstrated throughout the colon and rectum. Abnormal calcifications: None. Musculoskeletal: Degeneration changes of the hips with osteophyte formation of the acetabulum. Mild j oint space narrowing. Vertebroplasty changes of the spine. Other: None. IMPRESSION: 1. Mild amount of stool throughout the abdomen, No radiographic evidence for acute abdominal process. 2. No acute cardiopulmonary process
[2023-04-29] MEDS ORDERED: DEXTROSE 50% SYRINGE 50 ML IVP PRN ×2 (20:16)
[2023-04-29 21:06] LABS: Glucose,Whole Blood 160 mg/dL (70-110)
[2023-04-29] MEDS: polyethylene glycoL 3350 17 GM POWD.PACK PO STA (21:17)
[2023-04-29] MEDS: INSULIN ASPART (NovoLOG) 100 UNIT/ML VIAL SQ SCH (21:17)
[2023-04-29] MEDS: ACETAMINOPHEN TAB 325 MG TAB PO PRN (21:18)
[2023-04-29] MEDS: SODIUM CHLORIDE 0.9% 1,000 ML IV STA (21:21)
[2023-04-30 06:40] LABS: Glucose,Whole Blood 142 mg/dL (70-110)
[2023-04-30 06:53] LABS: HCT 36.4 % (39.0-53.0); HGB 11.9 gm/dL (13.0-17.5); MCH 27.1 pg (25.0-35.0); MCHC 32.8 g/dL (31.0-37.0); MCV 82.7 fL (80.0-100.0); Mean Platelet Volume 8.7; Platelet Count 166 k/uL (150-450); RDW 13.9 % (11.5-15.5); WBC 8.6 k/uL (3.8-10.6)
[2023-04-30] MEDS: LEVOTHYROXINE 88 MCG TAB PO SCH (07:01)
[2023-04-30] MEDS: bisacodyL 5 MG TABLET.DR PO PRN (07:02)
[2023-04-30 07:14] LABS: African American GFR (CKD) 51 (>60 ml/min/1.73 sqM); Anion Gap 6 mmol/L; Blood Urea Nitrogen 18 mg/dL (9-20); Calcium 8.6 mg/dL (8.4-10.2); Carbon Dioxide 29 mmol/L (22-30); Chloride 104 mmol/L (98-107); Glucose 146 mg/dL (74-99); Non-African American GFR(CKD) 44 (>60 ml/min/1.73 sqM); Potassium 4.2 mmol/L (3.5-5.1); Sodium 139 mmol/L (137-145)
--- NOTE | 2023-04-30 10:04 | CA ---
Transthoracic Echo Report Name: Simón Ambrose Age: 87 Gender: M : 1935 Exam Date: 04/30/2023 07:39 Exam Location: [facility] Ht (in): 70 Wt (lb): 200 Ordering Physician: Jhoana Pina DO Attending/Referring Phys: [id number], Yovani Vp Integrity Jammie Hartman RDCS Procedure CPT: Indications: chf Cardiac Hx: Technical Quality: Contrast 1: Total Dose (mL): Contrast 2: Total Dose (mL): MEASUREMENTS (Male / Female) Normal Values 2D ECHO LV Diastolic Diameter PLAX 4.8 cm 4.2 - 5.9 / 3.9 - 5.3 cm LV Systolic Diameter PLAX 3.1 cm IVS Diastolic Thickness 1.0 cm 0.6 - 1.0 / 0.6 - 0.9 cm LVPW Diastolic Thickness 1.2 cm 0.6 - 1.0 / 0.6 - 0.9 cm LV Relative Wall Thickness 0.5 LVOT Diameter 2.3 cm Aortic Root Diameter 3.6 cm LA Systolic Diameter LX 3.3 cm 3.0 - 4.0 / 2.7 - 3.8 cm LA Volume 79.8 cm??? 18 - 58 / 22 - 52 cm??? LA Volume Index 37.4 cm???/m??? 16 - 28 cm???/m??? DOPPLER AV Peak Velocity 126.3 cm/s AV Peak Gradient 6.4 mmHg AV Mean Velocity 75.8 cm/s AV Mean Gradient 2.6 mmHg AV Velocity Time Integral 21.3 cm LVOT Peak Velocity 96.0 cm/s LVOT Peak Gradient 3.7 mmHg LVOT Velocity Time Integral 23.5 cm LVOT Stroke Volume 99.0 cm??? LVOT Stroke Volume Index 47.4 ml/m??? AV Area Cont Eq vti 4.6 cm??? AV Area Cont Eq pk 3.2 cm??? MV Area PHT 2.6 cm??? Mitral E Point Velocity 75.1 cm/s Mitral A Point Velocity 75.1 cm/s Mitral E to A Ratio 1.0 MV Deceleration Time 289.2 ms TR Peak Velocity 288.5 cm/s TR Peak Gradient 33.3 mmHg PV Peak Velocity 85.1 cm/s PV Peak Gradient 2.9 mmHg FINDINGS Left Ventricle Left ventricular ejection fraction is estimated at 50-55 %. Normal Left ventricular size, wall thickness, with no obvious regional wall motion abnormalities. Right Ventricle Normal right ventricular size. Unable to estimate the right ventricular systolic pressure. Right Atrium Normal right atrial size. Left Atrium Mild left atrial dilatation. Mitral Valve Trace to mild mitral regurgitation. Aortic Valve Aortic valve not well visualized. Tricuspid Valve Mild tricuspid regurgitation. Pulmonic Valve No pulmonic regurgitation. Pericardium No pericardial effusion. Aorta Normal size aortic root. CONCLUSIONS Normal LV systolic function Poorly visualized intracardiac valves Previewed by: Dr. Benito Sparks MD (Electronically Signed) Final Date: 30 April 2023 10:03
[2023-04-30] MEDS: LACTULOSE 20 GM/30 ML CUP PO ONE (10:14)
[2023-04-30] MEDS: FAMOTIDINE 20 MG TAB PO SCH (10:15)
--- NOTE | 2023-04-30 10:31 | P.CNOR ---
History of Present Illness - HPI Consult date: 04/30/23 Consult reason: back pain History of present illness: The patient is very well-known to our service. He underwent a L5 vertebral biopsy and kyphoplasty on April 26 at [facility]. He was able to undergo the procedure with sedation and had improvement of his low back pain quickly after the procedure. He did not seem to have any complications or issues. He felt he was making progress in terms of his low back pain. However yesterday when getting up he was feeling weakness. He almost had a fall when he was standing with his walker and then had great difficulty getting up on his own. He was having significant pain in his back and he felt that his legs would give way. He denied chest pain or shortness of breath. He denied blacking out. He denies any nausea or vomiting. He felt like the pain was higher up in his back wrapping around his ribs bilaterally. He said it feels different than his prior pain in his low back. He feels like his low back pain is actually improved overall but he does not feel steady on his feet. He denies any changes in bowel bladder function. He says that he has been constipated and has not had a bowel movement in the past 5 days. He denies any fevers or chills. Review of Systems As stated per HPI. He feels that his recent procedure at L5 had gone well he does not feel like his issues are the same as the pain in his lower back prior to his surgery on Thursday. Past Medical History Past Medical History: Atrial Fibrillation, CVA/TIA, Diabetes Mellitus, Hyperlipidemia, Prostate Disorder, Thyroid Disorder Additional Past Medical History / Comment(s): KIDNEY STONE AGE 33. Recent Stress Test History of Any Multi-Drug Resistant Organisms: None Reported Past Surgical History: Orthopedic Surgery (L5 vertebral body kyphoplasty on Thursday, April 27, 2023), Tonsillectomy Additional Past Surgical History / Comment(s): RT ANKLE SX TOOK SOME BONE FROM LT HIP TO PUT IN LT ANKLE, JUS CATARACTS. L5 kyphoplasty 04/27/23 Past Anesthesia/Blood Transfusion Reactions: No Reported Reaction Additional Past Anesthesia/Blood Transfusion Reaction / Comm: does not want blood transfusion Past Psychological History: No Psychological Hx Reported Smoking Status: Never smoker Past Alcohol Use History: Daily Additional Past Alcohol Use History / Comment(s): STARTED SMOKNG AT AGE 16, QUIT AT AGE 33 LESS THAN 1 PPD. STATES DRINKS 2 BEER PER DAY Past Drug Use History: None Reported - Past Family History Mother Family Medical History: Dementia, Diabetes Mellitus Brother(s) Family Medical History: Cancer Additional Family Medical History / Comment(s): "colon problems". colon cancer Medications and Allergies Home Medications Medication Instructions Recorded Confirmed Type Levothyroxine Sodium 88 mcg PO DAILY 07/20/18 04/29/23 History Amiodarone [Cordarone] 100 mg PO DAILY 03/09/23 04/29/23 History Rivaroxaban [Xarelto] 15 mg PO DAILY 03/09/23 04/29/23 History Acetaminophen Tab [Tylenol] 650 mg PO Q6HR PRN tab 03/12/23 04/29/23 Rx Ascorbic Acid [Vitamin C] 500 mg PO BID tab 03/12/23 04/29/23 Rx Cholecalciferol [Vitamin D3 (125 125 mcg PO DAILY tab 03/12/23 04/29/23 Rx Mcg = 5000 Iu)] Famotidine [Pepcid] 20 mg PO DAILY tab 03/12/23 04/29/23 Rx INSULIN ASPART (NovoLOG) [NovoLOG See Protocol SQ AC-TID 04/29/23 04/29/23 History (formulary)] Allergies Allergy/AdvReac Type Severity Reaction Status Date / Time No Known Allergies Allergy Verified 04/29/23 14:01 Physical Examination Osteopathic Statement: *. No significant issues noted on an osteopathic structural exam other than those noted in the History and Physical/Consult. - L Spine: dermatomal strength & reflexes bilateral Strength: hip flexion: 5/5 (The incision sites that his lower back are healing well. There is no erythema no drainage. He is nontender over the midline but still has some tenderness around the incision sites. There are some mild tenderness around the thoracolumbar junction diffusely. He is nontender to percussion at the ar) Strength: knee flexion: 5/5 (He was able to stand up on his own up from a chair. He is able to stand on his toes and heels. There is no pain with internal ex rotation of his hips. He is able to lift his legs up off the bed with 5 out of 5 strength) Results - Labs Labs: Abnormal Lab Results - Last 24 Hours (Table) 04/29/23 04/29/23 04/29/23 Range/Units 14:33 14:33 14:33 WBC 11.8 H (3.8-10.6) k/uL Hgb 12.5 L (13.0-17.5) gm/dL Hct 37.6 L (39.0-53.0) % Neutrophils # 9.3 H (1.3-7.7) k/uL BUN 21 H (9-20) mg/dL Creatinine 1.54 H (0.66-1.25) mg/dL Glucose 179 H (74-99) mg/dL POC Glucose (mg/dL) (70-110) mg/dL Urine Protein 1+ H (Negative) Urine Glucose (UA) 2+ H (Negative) Urine Blood Trace H (Negative) Urine Bacteria Rare H (None) /hpf Urine Mucus Rare H (None) /hpf 04/29/23 04/30/23 04/30/23 Range/Units 21:04 06:18 06:18 WBC (3.8-10.6) k/uL Hgb 11.9 L (13.0-17.5) gm/dL Hct 36.4 L (39.0-53.0) % Neutrophils # (1.3-7.7) k/uL BUN (9-20) mg/dL Creatinine 1.42 H (0.66-1.25) mg/dL Glucose 146 H (74-99) mg/dL POC Glucose (mg/dL) 160 H (70-110) mg/dL Urine Protein (Negative) Urine Glucose (UA) (Negative) Urine Blood (Negative) Urine Bacteria (None) /hpf Urine Mucus (None) /hpf 04/30/23 Range/Units 06:39 WBC (3.8-10.6) k/uL Hgb (13.0-17.5) gm/dL Hct (39.0-53.0) % Neutrophils # (1.3-7.7) k/uL BUN (9-20) mg/dL Creatinine (0.66-1.25) mg/dL Glucose (74-99) mg/dL POC Glucose (mg/dL) 142 H (70-110) mg/dL Urine Protein (Negative) Urine Glucose (UA) (Negative) Urine Blood (Negative) Urine Bacteria (None) /hpf Urine Mucus (None) /hpf H & H 04/29/23 04/30/23 Range/Units 14:33 06:18 Hgb 12.5 L 11.9 L (13.0-17.5) gm/dL Hct 37.6 L 36.4 L (39.0-53.0) % Result Diagrams: 04/30/23 06:18 04/30/23 06:18 - Diagnostic results Lumbar AP/lateral x-ray: report reviewed, image reviewed (X-rays lumbar spine and the abdominal series are reviewed. The cement at L5 appears to be well- contained. It is isolated around the superior aspect of the vertebral body. I do not see any further collapse. I do not see any further fracture at his lumbar spine. There are some degenerative change) Assessment and Plan Assessment: Postop day 4 status post L4-5 vertebral body biopsy and kyphoplasty for a subacute vertebral compression fracture, which appears to be stable Generalized weakness with some thoracolumbar back pain without acute neurologic deficit of the lower extremities Constipation Plan: Postop day 4 status post L4-5 vertebral body biopsy and kyphoplasty for a subacute vertebral compression fracture, which appears to be stable Generalized weakness with some thoracolumbar back pain without acute neurologic deficit of the lower extremities Constipation Is somewhat difficult to determine the source of the patient's generalized weakness. The surgical site at L5 appears to be stable. He feels that the pain is different than his preoperative pain which is encouraging about the space itself. He does have pain at his mid back but I am not able to elicit specific symptoms with palpation and percussion. It is possible that he could have an injury of his thoracic spine and I will go ahead and order x-rays of the thoracic spine as well. He does have some bowel distention on his abdominal series and has not had a bowel movement for the past 4 days. They are working on his constipation I think that is appropriate. His cardiology workup has not shown anything significant thus far. Will see if he is able to mobilize further with physical therapy and assistance to try to keep safety for his ambulation and mobilization. Will continue to follow along with you.
[2023-04-30] MEDS: AMIODARONE 100 MG TAB PO SCH (12:21)
[2023-04-30] MEDS: RIVAROXABAN 15 MG TAB PO SCH (12:21)
[2023-04-30 12:28] LABS: Glucose,Whole Blood 186 mg/dL (70-110)
--- NOTE | 2023-04-30 16:18 | P.PN ---
Subjective Progress Note Date: 04/30/23 (delayed charting seen at 0855) Patient is a 87-year-old male with prior CVA, a fib anticoagulated with xarelto, DM 2 on metformin, dyslipidemia, prior prostate cancer, and hypothyroidism who lives at [facility]. Patient had a kyphoplasty performed on 04/27/2023 due to vertebral compression fracture. He presented to the hospital today with complaints of decreased appetite and increasing pain with lower extremity weakness. On arrival to the ER his vital signs were remarkable for hypertension with a blood pressure of 187/95. Initial laboratory analysis in the emergency department included CBC, CMP, and troponin which were remarkable for white blood cell count 11.8, hemoglobin 12.5, and creatinine 1.54 (baseline creatinine 1.6). He underwent a urinalysis which was remarkable for protein and glucose. In the emergency department he received a dose of morphine. Arrangements were made for observation. He was seen by spine ortho Patient seen and examined at bedside. He conitnues to have some back pain and abd pain. Back is to the left of the incision. He did not have a bowel movement after miralax. He report wekness is a bit better Vital signs reviewed General: Nontoxic, no distress, appears at stated age Cardiovascular: S1S2 reg, no murmur Lungs: CTA bilateral, no rhonchi, no rales, no accessory muscle use Abdominal: Soft, nontender to palpation, no guarding Ext: No gross muscle atrophy, trace edema b/l lower extremities, no contractures Neuro: CN II-XI grossly intact, no focal neuro deficits Psych: Alert, oriented, appropriate affect Assessment/Plan: Back pain s/oL4 kyphoplasty - spine ortho note reviewed Constipation - lactulose 30 mg PO X 1, mirilax not effection lower extremiety edema - likely venous insufficiecy - BNP near normal for age - Echo with EF 50-55% no significant valvualar disease noted, unable to eval RVSP P. A fib - resume Xarelto - Amio DM 2 - SSI - A1C 8.2 CKD Stage III -Creatinine at baseline Imaging: None new Data Review: Labs reviewed from today include CBC and basic metabolic profile remarkable for creatinine of 1.42 and hemoglobin of 11.9. TSH slightly elevated at 5.930 but free T4 is normal at 1.49 DVT prophylaxis: Xarelto Anticipated discharge date: In a.m. Anticipated discharge place: Home with home health This dictation was prepared using [employer] voice recognition software. Though every attempt is made to correct errors during dictation some may still exist. Objective - Vital Signs Vital signs: Vital Signs Temp 97.5 F L 04/30/23 14:08 Pulse 71 04/30/23 14:08 Resp 18 04/30/23 14:08 BP 166/78 04/30/23 14:08 Pulse Ox 97 04/30/23 14:08 FiO2 Intake & Output 04/29/23 04/30/23 04/30/23 18:59 06:59 18:59 Output Total 400 Balance -400 Weight 90.718 kg 90.718 kg Output: Urine 400 Other: Voiding Method Urinal # Bowel Movements 1 - Labs CBC & Chem 7: 04/30/23 06:18 04/30/23 06:18 Labs: Abnormal Lab Results - Last 24 Hours (Table) 04/29/23 04/29/23 04/30/23 Range/Units 14:33 21:04 06:18 Hgb (13.0-17.5) gm/dL Hct (39.0-53.0) % Creatinine (0.66-1.25) mg/dL Glucose (74-99) mg/dL POC Glucose (mg/dL) 160 H (70-110) mg/dL Hemoglobin A1c 8.2 H (<=6.0) % TSH (0.350-5.500) UIU/ML Urine Protein 1+ H (Negative) Urine Glucose (UA) 2+ H (Negative) Urine Blood Trace H (Negative) Urine Bacteria Rare H (None) /hpf Urine Mucus Rare H (None) /hpf 04/30/23 04/30/23 04/30/23 Range/Units 06:18 06:18 06:18 Hgb 11.9 L (13.0-17.5) gm/dL Hct 36.4 L (39.0-53.0) % Creatinine 1.42 H (0.66-1.25) mg/dL Glucose 146 H (74-99) mg/dL POC Glucose (mg/dL) (70-110) mg/dL Hemoglobin A1c (<=6.0) % TSH 5.930 H (0.350-5.500) UIU/ML Urine Protein (Negative) Urine Glucose (UA) (Negative) Urine Blood (Negative) Urine Bacteria (None) /hpf Urine Mucus (None) /hpf 04/30/23 04/30/23 Range/Units 06:39 12:25 Hgb (13.0-17.5) gm/dL Hct (39.0-53.0) % Creatinine (0.66-1.25) mg/dL Glucose (74-99) mg/dL POC Glucose (mg/dL) 142 H 186 H (70-110) mg/dL Hemoglobin A1c (<=6.0) % TSH (0.350-5.500) UIU/ML Urine Protein (Negative) Urine Glucose (UA) (Negative) Urine Blood (Negative) Urine Bacteria (None) /hpf Urine Mucus (None) /hpf
[2023-04-30 16:40] LABS: Glucose,Whole Blood 163 mg/dL (70-110)
[2023-04-30 20:50] LABS: Glucose,Whole Blood 195 mg/dL (70-110)
[2023-05-01 05:39] LABS: Glucose,Whole Blood 146 mg/dL (70-110)
[2023-05-01 07:58] VITALS: BP 181/82; PULSE 59; RESP 18; TEMP 98.1
[2023-05-01] MEDS: PSYLLIUM HUSK 100% 6 GM PACKET PO SCH (09:48)
--- NOTE | 2023-05-01 11:17 | P.PN ---
Progress Note - Text Progress Note Date: 05/01/23 Orthopedic spine: History of present illness: Patient is a very pleasant 87-year-old male well-known to our service who is seen and examined at bedside for follow-up evaluation of his thoracic and lumbar spines. He is status post L5 kyphoplasty with biopsy performed on 04/27/2023. His low back pain has improved in regards to his L5 compression fracture site following kyphoplasty. Following discharge home from the surgery center he was experiencing some increased weakness with difficulty with his mobilization and increased thoracic pain. He presented to [facility] for further evaluation. X-ray imaging of the lumbar spine was taken yesterday which showed evidence of L5 kyphoplasty without evidence of acute fracture of the vertebral bodies visualized from T12-L5. He has continued to improve since his admission. He is currently ambulating the hallways with therapy. He is dressed in regular clothes. He states he is ready for discharge home today at noon. He does admit to some ongoing thoracic back pain. We do not have any imaging in this regard. We did discuss we will plan to obtain thoracic x-ray imaging prior to his discharge home for further evaluation and to rule out compression fracture. He is not currently complaining of lower extremity radiculopathy. His weakness has been improving. He is being seen by medicine. He is admitted to medicine. Medicine is planning for discharge home with home health services today. Physical exam: Patient is awake, alert, and oriented 3 Vital signs stable Good chest excursion with deep inspiration and expiration Abdomen soft nontender Examination of lumbar spine reveals skin is intact with no abrasions, lacerations, or bruises; no erythema, purulence or signs of infection Dorsiflexion, plantarflexion, and extensor hallucis longus positive sustained bilaterally Lower extremity strength 5/5 bilaterally Patellar reflex 2+ bilaterally and Achilles reflexes 2+ bilaterally No lower extremity hyperreflexia bilaterally Straight leg test negative bilateral lower extremities Negative Lasegue's test bilaterally No signs or symptoms of DVT; no calf pain No pain with internal and external rotation of the hips bilaterally Neurovascularly intact Pertinent studies: X-rays of the thoracic spine taken on 05/01/2023: Mid thoracic degenerative disc disease with some anterior osteophytic spurring; slight degenerative scoliosis; I do not see evidence of obvious compression fracture deformity Assessment: Status post L5 kyphoplasty with biopsy performed on 04/27/2023 Low back pain significantly improved Acute thoracic pain Mid thoracic degenerative disc disease Slight thoracic scoliosis Generalized weakness Constipation Lower extremity edema Paroxysmal atrial fibrillation Chronic kidney disease stage III Type 2 diabetes mellitus Plan: 1. He is status post L5 kyphoplasty with biopsy performed on 04/27/2023. His low back pain has improved in regards to his L5 compression fracture site following kyphoplasty. Following discharge home from the surgery center he was experiencing some increased weakness with difficulty with his mobilization and increased thoracic pain. He presented to [facility] for further evaluation. X-ray imaging of the lumbar spine was taken yesterday which showed evidence of L5 kyphoplasty without evidence of acute fracture of the vertebral bodies visualized from T12-L5. During his admission, he has continued to improve in regards to his lower extremity weakness. He is not currently complaining of lower extremity radiculopathy. He is ambulating the hallways with a walker with the assistance of physical therapy. He feels his pain is well-controlled and he would like to be discharged home today. Medicine was planning for discharge today. Patient states he is planning for discharge at noon. He is already dressed in his regular clothing. He does admit to some ongoing thoracic back pain. We do not have any imaging in this regard. We did discuss we will plan to obtain thoracic x-ray imaging prior to his discharge home for further evaluation and to rule out compression fracture. This imaging has been performed and reviewed. He does have some degenerative change with some mild degenerative disc disease with some anterior osteophytic spurring and slight degenerative scoliosis. I do not see evidence of obvious compression fracture deformity. He does have bracing at home which he may wear for comfort and support as needed. Patient is cleared for discharge from an orthopedic spine standpoint. Will plan to have him follow-up in the outpatient setting for follow-up evaluation. Patient may follow-up with Con Albarado PA-C or Dr. Austen Cardona at [facility] in 2 weeks following discharge. 2. Patient will continue to be seen and examined by medicine for his other medical diagnoses. They are planning for discharge home today. The patient is seen and examined at bedside today. Dr. Ambrose is present as well. The images do not show any obvious fracture. There is still some pain around the thoracolumbar junction but he is mobilizing better. I think he is okay for discharge home today with close follow-up. .
--- NOTE | 2023-05-01 11:44 | XR ---
EXAMINATION TYPE: XR thoracic spine 2V DATE OF EXAM: 05/01/2023 11:06 AM CLINICAL INDICATION:Male, 87 years old with history of Pain, R/O Fx; [facility] COMPARISON: 03/10/2023 TECHNIQUE: XR thoracic spine 2V views of the spine in Frontal and lateral projections. FINDINGS: No evidence of acute fracture. There is scattered multilevel disk space narrowing without loss of ve rtebral body height. There is normal alignment of the thoracic vertebral bodies. Scattered osteophyte formation along the anterior and lateral aspects of the vertebral bodies. Neural foramen are patent given limitations of this exam. Spinal canal appears patent. IMPRESSION: 1. No acute osseous pathology. 2. Moderate degeneration changes throughout the spine.
--- NOTE | 2023-05-01 16:08 | P.DS ---
Providers Date of admission: 04/29/23 17:47 Expected date of discharge: 05/01/23 Attending physician: Checo Peace MD Consults: 04/29/23 17:47 Consult Physician Routine Consulting Provider: Mauro Cardona Consult Reason/Comments: weakness Do you want consulting provider notified?: Yes Primary care physician: Marlo Santamaria [facility] Course: Discharge Diagnosis: Constipation Low back pain status post L5 kyphoplasty 04/27/2023 with mild thoracic degenerative changes and scoliosis Generalized weakness Paroxysmal atrial fibrillation Diabetes mellitus type 2 Chronic kidney disease Hospital Course: Patient is a 87-year-old male with prior CVA, a fib anticoagulated with xarelto, DM 2 on metformin, dyslipidemia, prior prostate cancer, and hypothyroidism who lives at [facility]. Patient had a kyphoplasty performed on 04/27/2023 due to vertebral compression fracture. He presented to the hospital today with complaints of decreased appetite and increasing pain with lower extremity weakness. On arrival to the ER his vital signs were remarkable for hypertension with a blood pressure of 187/95. Initial laboratory analysis in the emergency department included CBC, CMP, and troponin which were remarkable for white blood cell count 11.8, hemoglobin 12.5, and creatinine 1.54 (baseline creatinine 1.6). He underwent a urinalysis which was remarkable for protein and glucose. In the emergency department he received a dose of morphine. Arrangements were made for observation. He was seen by spine ortho and had x-rays of the thoracic spine completed which did not show any acute fractures. He was found to have significant constipation on abdominal x-ray. He was given a dose of lactulose with good bowel movement. He was seen by physical and Occupational Therapy and did well. He was improving but still had some back discomfort with coughing and movement. He was cleared for discharge by orthopedic spine surgery and myself. Follow-up: Dr. Cardona in 2 weeks as previously scheduled, Dr. Santamaria in 1 to 2 days, and begin home care. He was given instructions for strict bowel regiment. Patient seen and examined at bedside. Doing better. Feels comfortable going home. We discussed how to utilize the bowel regiment included with his discharge instructions. Vital signs reviewed and stable. General: Nontoxic, no distress, appears at stated age Cardiovascular: S1S2 reg, no murmur, positive posterior tibial pulse bilateral, Lungs: CTA bilateral, no rhonchi, no rales, no accessory muscle use Abdominal: Soft, nontender to palpation, no guarding, no appreciable organomegaly Ext: No gross muscle atrophy, no edema b/l lower extremities, no contractures Psych: Alert, oriented, appropriate affect A total of 27 minutes of time were spent preparing this complex discharge summary. Patient was discharged on 05/01/23. This dictation was prepared using [employer] voice recognition software. Though every attempt is made to correct errors during dictation some may still exist. Patient Condition at Discharge: Stable Plan - Discharge Summary Discharge Rx Participant: No New Discharge Prescriptions: New Lactulose 20 gm PO Q72H PRN #1000 ml PRN Reason: Constipation Continue Levothyroxine Sodium 88 mcg PO DAILY Amiodarone [Cordarone] 100 mg PO DAILY Rivaroxaban [Xarelto] 15 mg PO DAILY Acetaminophen Tab [Tylenol] 650 mg PO Q6HR PRN tab PRN Reason: Mild Pain Or Fever > 100.5 Cholecalciferol [Vitamin D3 (125 Mcg = 5000 Iu)] 125 mcg PO DAILY tab Famotidine [Pepcid] 20 mg PO DAILY tab Ascorbic Acid [Vitamin C] 500 mg PO BID tab INSULIN ASPART (NovoLOG) [NovoLOG (formulary)] See Protocol SQ AC-TID Discharge Medication List Levothyroxine Sodium 88 mcg PO DAILY 07/20/18 [History] Amiodarone [Cordarone] 100 mg PO DAILY 03/09/23 [History] Rivaroxaban [Xarelto] 15 mg PO DAILY 03/09/23 [History] Acetaminophen Tab [Tylenol] 650 mg PO Q6HR PRN tab 03/12/23 [Rx] Ascorbic Acid [Vitamin C] 500 mg PO BID tab 03/12/23 [Rx] Cholecalciferol [Vitamin D3 (125 Mcg = 5000 Iu)] 125 mcg PO DAILY tab 03/12/23 [Rx] Famotidine [Pepcid] 20 mg PO DAILY tab 03/12/23 [Rx] INSULIN ASPART (NovoLOG) [NovoLOG (formulary)] See Protocol SQ AC-TID 04/29/23 [History] Lactulose 20 gm PO Q72H PRN #1000 ml 05/01/23 [Rx] Follow up Appointment(s)/Referral(s): [facility], [NON-STAFF] - As Needed Marlo Santamaria DO [Primary Care Provider] - 1-2 days (Office will call you with your appointment.) Mauro Cardona DO [Doctor of Osteopathic Medicine] - 2 Weeks (as previously scheduled ) Activity/Diet/Wound Care/Special Instructions: Activity: As tolerated Diet: Heart Healthy, Consistent Carb Special Instructions: Take a fiber supplement daily (metamucil, fiber chew, or fiber gummy), Take miralax 17 grams grams if no bowel movement in 48 hours, if still no bowel movement after 12-24 hours take lactulose. 1. Patient should avoid excessive bending, twisting, lifting; avoid overhead lifting; no lifting greater than 10 pounds 2. Patient may utilize bracing as previously prescribed as needed for his thoracolumbar spine Discharge Disposition: HOME WITH HOME HEALTH SERVICES
== END 2023-05-01 12:28 | disposition home health service (06) ==
LOC: EC 12:35 → 4SSUR 17:47
PROVIDERS: ADMIT Student in an Organized Health Care Education/Training Program; ATTEND Student in an Organized Health Care Education/Training Program
DX: R53.1 Weakness (principal); R10.9 Unspecified abdominal pain; R60.0 Localized edema; G89.18 Other acute postprocedural pain; K59.00 Constipation, unspecified; E78.5 Hyperlipidemia, unspecified; I48.0 Paroxysmal atrial fibrillation; E03.9 Hypothyroidism, unspecified; E11.22 Type 2 diabetes mellitus with diabetic chronic kidney disease; N18.30 Chronic kidney disease, stage 3 unspecified; M51.34 Other intervertebral disc degeneration, thoracic region; M41.84 Other forms of scoliosis, thoracic region; Z85.46 Personal history of malignant neoplasm of prostate; Z86.73 Personal history of transient ischemic attack (TIA), and cerebral infarction without residual deficits; Z87.442 Personal history of urinary calculi; Z79.890 Hormone replacement therapy; Z79.899 Other long term (current) drug therapy; Z79.01 Long term (current) use of anticoagulants; Z79.4 Long term (current) use of insulin; Z79.84 Long term (current) use of oral hypoglycemic drugs; Z11.52 Encounter for screening for COVID-19
CPT/HCPCS: 96361; 96374; 99285; 36415; 94760; 93306; 97161; 97166; 84439; 83880; 80053; 80048; 84443; 83605; 83735; 84484; 85025; 85027; 81001; 87040; 83036; 87636; 74022; 72070; 72100; G0378 ×3; J2270; 93005

== ENCOUNTER 2023-08-07 11:56 | Inpatient (IN) | payer MEDICARE ==
--- NOTE | 2023-08-07 12:28 | ED ---
General Adult HPI - General Chief complaint: Neuro Symptoms/Deficit Stated complaint: Neuro Issue Time Seen by Provider: 08/07/23 12:10 Source: patient, family, EMS, RN notes reviewed Mode of arrival: EMS Limitations: no limitations, physical limitation - History of Present Illness Initial comments: Patient is an 87-year-old male presenting to the emergency department by EMS with family with concerns for weakness. Last known well was 2 days ago. Pat stefania has had 3 falls without injury. No syncope. Patient has coordination problems with his right arm. Patient feels that both of his legs are weak. No confusion. No speech problems. - Related Data Home Medications Medication Instructions Recorded Confirmed Levothyroxine Sodium 88 mcg PO DAILY 07/20/18 08/07/23 Amiodarone [Cordarone] 100 mg PO DAILY 03/09/23 08/07/23 Rivaroxaban [Xarelto] 15 mg PO DAILY 03/09/23 08/07/23 Oxybutynin Chloride [oxyBUTYnin 10 mg PO DAILY 08/07/23 08/07/23 chloride ER] Allergies Allergy/AdvReac Type Severity Reaction Status Date / Time No Known Allergies Allergy Verified 08/07/23 13:14 Review of Systems ROS Statement: Those systems with pertinent positive or pertinent negative responses have been documented in the HPI. ROS Other: All systems not noted in ROS Statement are negative. Constitutional: Denies: fever Eyes: Denies: eye pain ENT: Denies: ear pain Respiratory: Denies: cough Cardiovascular: Denies: chest pain Endocrine: Denies: fatigue Gastrointestinal: Denies: abdominal pain Neurological: Reports: as per HPI, weakness. Denies: headache Past Medical History Past Medical History: CVA/TIA, Diabetes Mellitus Additional Past Medical History / Comment(s): CVA 3 years ago History of Any Multi-Drug Resistant Organisms: None Reported Past Psychological History: No Psychological Hx Reported Smoking Status: Never smoker Past Alcohol Use History: None Reported Past Drug Use History: None Reported - Past Family History Mother Family Medical History: Dementia, Diabetes Mellitus Brother(s) Family Medical History: Cancer Additional Family Medical History / Comment(s): "colon problems". colon cancer General Exam Limitations: physical limitation General appearance: alert, in no apparent distress Head exam: Present: atraumatic Eye exam: Present: normal appearance, PERRL, EOMI ENT exam: Present: normal oropharynx Neck exam: Present: normal inspection. Absent: tenderness Respiratory exam: Present: normal lung sounds bilaterally Cardiovascular Exam: Present: regular rate, normal rhythm GI/Abdominal exam: Present: soft. Absent: tenderness Extremities exam: Present: normal inspection, full ROM. Absent: tenderness Neurological exam: Present: alert, oriented X3, CN II-XII intact Expanded Neurological exam: Present: protecting the airway Patient oriented to: Present: person, place, time Speech: Present: fluid speech Cranial nerves: EOM's Intact: Normal, Facial Sensation: Normal Cerebellar function: Finger to Nose: Abnormal Right Sensory exam: Upper Extremity Light Touch: Normal, Lower Extremity Light Touch: Normal Motor strength exam: RUE: 4, LUE: 5, RLE: 2/1, LLE: 4 Eye Response: (4) open spontaneously Motor Response: (6) obeys commands Verbal Response: (5) oriented Psychiatric exam: Present: normal affect, normal mood Skin exam: Present: normal color Course Vital Signs 08/07/23 11:57 Temperature 98.6 F Pulse Rate 64 Respiratory 17 Rate Blood Pressure 146/66 O2 Sat by Pulse 95 Oximetry Medical Decision Making - Medical Decision Making Was pt. sent in by a medical professional or institution (, PA, CABLE PULLER, urgent care, hospital, or fdc...) When possible be specific @ -Patient was sent in from assisted living Did you speak to anyone other than the patient for history (EMS, parent, family, police, friend...)? What history was obtained from this source @ -Family is present helps provide history including onset Did you review nursing and triage notes (agree or disagree)? Why? @ -[I reviewed and agree with nursing and triage notes] Were old charts reviewed (outside hosp., previous admission, EMS record, old EKG, old radiological studies, urgent care reports/EKG's, fdc records)? Report findings @ -[No old charts were reviewed] Differential Diagnosis (chest pain, altered mental status, abdominal pain women, abdominal pain men, vaginal bleeding, weakness, fever, dyspnea, syncope, headache, dizziness, GI bleed, back pain, seizure, CVA, palpatations, mental health, musculoskeletal)? @ -Differential Weakness: Hypoglycemia, shock, sepsis, hyponatremia, anemia, infection, SC, ETOH, adverse medicine reaction, overdose, stroke, this is not meant to be an all-inclusive list. EKG interpreted by me (3pts min.). @ -[As above] X-rays interpreted by me (1pt min.). @ -Chest x-ray does not reveal acute abnormality. CT interpreted by me (1pt min.). @ -CT of the brain does not reveal acute abnormality U/S interpreted by me (1pt. min.). @ -[None done] What testing was considered but not performed or refused? (CT, X-rays, U/S, labs)? Why? @ -[None] What meds were considered but not given or refused? Why? @ -[None] Did you discuss the management of the patient with other professionals (professionals i.e. , PA, CABLE PULLER, lab, RT, psych nurse, social work nurse, optical effects layout person, teacher, chief mechanical officer, shoe parts caser)? Give summary @ -Case discussed with Dr. Dangelo with neurology who will consult. Case also discussed with Dr. Garcia who will admit covering Dr. Santamaria. Was smoking cessation discussed for >3mins.? @ -[No] Was critical care preformed (if so, how long)? @ -[No] Were there social determinants of health that impacted care today? How? (Homelessness, low income, unemployed, alcoholism, drug addiction, transporta tion, low edu. Level, literacy, decrease access to med. care, assisted, rehab)? @ -[No] Was there de-escalation of care discussed even if they declined (Discuss DNR or withdrawal of care, Hospice)? DNR status @ -Last known well is greater than 4.5 hours, therefore patient is not a candidate for tPA What co-morbidities impacted this encounter? (DM, HTN, Smoking, COPD, CAD, Cancer, CVA, ARF, Chemo, Hep., AIDS, mental health diagnosis, sleep apnea, morbid obesity)? @ -[None] Was patient admitted / discharged? Hospital course, mention meds given and route, prescriptions, significant lab abnormalities, going to OR and other pertinent info. @ -Patient presents with leg weakness and coordination problems, last known well 2 to 3 days ago. Patient has symptoms consistent with CVA. Patient will be admitted with neurology consult. Admission orders written. Family and patient updated Undiagnosed new problem with uncertain prognosis? @ -[No] Drug Therapy requiring intensive monitoring for toxicity (Heparin, Nitro, Insulin, Cardizem)? @ -[No] Were any procedures done? @ -[No] Diagnosis/symptom? @ -CVA Acute, or Chronic, or Acute on Chronic? @ -Acute Uncomplicated (without systemic symptoms) or Complicated (systemic symptoms)? @ -[default] Side effects of treatment? @ -[No] Exacerbation, Progression, or Severe Exacerbation? @ -[No] Poses a threat to life or bodily function? How? (Chest pain, USA, SC, pneumonia, PE, COPD, DKA, ARF, appy, cholecystitis, CVA, Diverticulitis, Homicidal, Suicidal, threat to staff... and all critical care pts) @ -Risk to neurological - Lab Data Result diagrams: 08/07/23 12:31 08/07/23 12:31 Lab Results 08/07/23 08/07/23 Range/Units 12:31 12:31 WBC 9.6 (3.8-10.6) k/uL RBC 4.90 (4.30-5.90) m/uL Hgb 12.2 L (13.0-17.5) gm/dL Hct 39.8 (39.0-53.0) % MCV 81.1 (80.0-100.0) fL MCH 24.8 L (25.0-35.0) pg MCHC 30.6 L (31.0-37.0) g/dL RDW 13.5 (11.5-15.5) % Plt Count 201 (150-450) k/uL MPV 9.9 Neutrophils % 70 % Lymphocytes % 15 % Monocytes % 11 % Eosinophils % 2 % Basophils % 1 % Neutrophils # 6.7 (1.3-7.7) k/uL Lymphocytes # 1.5 (1.0-4.8) k/uL Monocytes # 1.1 H (0-1.0) k/uL Eosinophils # 0.2 (0-0.7) k/uL Basophils # 0.1 (0-0.2) k/uL Sodium 138 (137-145) mmol/L Potassium 4.0 (3.5-5.1) mmol/L Chloride 104 (98-107) mmol/L Carbon Dioxide 29 (22-30) mmol/L Anion Gap 5 mmol/L BUN 19 (9-20) mg/dL Creatinine 1.48 H (0.66-1.25) mg/dL Est GFR (CKD-EPI)AfAm 48 (>60 ml/min/1.73 sqM) Est GFR (CKD-EPI)NonAf 41 (>60 ml/min/1.73 sqM) Glucose 163 H (74-99) mg/dL Calcium 8.7 (8.4-10.2) mg/dL Total Bilirubin 0.9 (0.2-1.3) mg/dL AST 21 (17-59) U/L ALT 12 (4-49) U/L Alkaline Phosphatase 68 (38-126) U/L Creatine Kinase 112 (55-170) U/L Total Protein 6.6 (6.3-8.2) g/dL Albumin 3.6 (3.5-5.0) g/dL Disposition Clinical Impression: Cerebrovascular accident (CVA) Disposition: ADMITTED IP TO THIS HOSP Is patient prescribed a controlled substance at d/c from ED?: No Referrals: Marlo Santamaria DO [Primary Care Provider] - 1-2 days Time of Disposition: 13:41
--- NOTE | 2023-08-07 12:57 | CT ---
EXAMINATION TYPE: CT brain wo con DATE OF EXAM: 08/07/2023 COMPARISON: none HISTORY: Neuro deficit, acute, stroke suspected CT DLP: 1154.[address] of the brain was performed. The ventricles, basal cisterns and sulci overlying the cerebral convexities demonstrate mild enlargem ent. There is no evidence for intracranial hemorrhage or sulcal effacement. There is decreased attenuation about the periventricular white matter and deep white matter of both c erebral hemispheres, compatible with chronic small vessel ischemia. Differential diagnosis does inclu de demyelination. No mass effects are seen.No midline shift. Osseous calvarium is intact. If symptoms persist consider MRI. IMPRESSION: 1. Age related atrophic and chronic small vessel ischemic change without acute intracranial process s een at this time.
[2023-08-07 13:04] LABS: Basophils # (A) 0.1 k/uL (0-0.2); Basophils % (A) 1 %; Eosinophils # (A) 0.2 k/uL (0-0.7); Eosinophils % (A) 2 %; HCT 39.8 % (39.0-53.0); HGB 12.2 gm/dL (13.0-17.5); Lymphocytes # (A) 1.5 k/uL (1.0-4.8); Lymphocytes % (A) 15 %; MCH 24.8 pg (25.0-35.0); MCHC 30.6 g/dL (31.0-37.0); MCV 81.1 fL (80.0-100.0); Mean Platelet Volume 9.9; Monocytes # (A) 1.1 k/uL (0-1.0); Monocytes % (A) 11 %; Neutrophils # (A) 6.7 k/uL (1.3-7.7); Neutrophils % (A) 70 %; Platelet Count 201 k/uL (150-450); RDW 13.5 % (11.5-15.5); WBC 9.6 k/uL (3.8-10.6)
--- NOTE | 2023-08-07 13:13 | XR ---
EXAMINATION TYPE: XR chest 2V DATE OF EXAM: 08/07/2023 1:04 PM CLINICAL INDICATION:Male, 87 years old with history of altered mental status; COMPARISON: Chest radiographs from 03/09/2023 TECHNIQUE: XR chest 2V Frontal and lateral views of the chest. FINDINGS: Lungs/Pleura: There is no evidence of pleural effusion, focal consolidation, or pneumothorax. Pulmonary vascularity: Unremarkable. Heart/mediastinum: Cardiomediastinal silhouette is unremarkable. Musculoskeletal: No acute osseous pathology. IMPRESSION: No acute cardiopulmonary disease/process.
[2023-08-07 13:14] LABS: ALT 12 U/L (4-49); AST 21 U/L (17-59); African American GFR (CKD) 48 (>60 ml/min/1.73 sqM); Albumin 3.6 g/dL (3.5-5.0); Alkaline Phosphatase 68 U/L (38-126); Anion Gap 5 mmol/L; Blood Urea Nitrogen 19 mg/dL (9-20); Calcium 8.7 mg/dL (8.4-10.2); Carbon Dioxide 29 mmol/L (22-30); Chloride 104 mmol/L (98-107); Creatine Kinase 112 U/L (55-170); Glucose 163 mg/dL (74-99); Non-African American GFR(CKD) 41 (>60 ml/min/1.73 sqM); Sodium 138 mmol/L (137-145); Total Bilirubin 0.9 mg/dL (0.2-1.3); Total Protein 6.6 g/dL (6.3-8.2)
[2023-08-07 13:48] LABS: INR 1.1 (<1.2); Prothrombin Time 11.5 sec (10.0-12.5)
[2023-08-07] MEDS: ASPIRIN 325 MG TAB PO STA (13:55)
[2023-08-07 13:57] LABS: Partial Thromboplastin Time 21.8 sec (22.0-30.0)
[2023-08-07] MEDS: SODIUM CHLORIDE 0.9% 1,000 ML IV SCH (13:58)
--- NOTE | 2023-08-07 15:17 | US ---
EXAMINATION TYPE: US carotid duplex BILAT DATE OF EXAM: 08/07/2023 COMPARISON: NONE CLINICAL INDICATION: Male, 87 years old with history of Stenosis; Altered mental status. right sided weakness and numbness TECHNIQUE: Carotid duplex ultrasound examination. Indirect Doppler criteria was utilized. FINDINGS: EXAM MEASUREMENTS: RIGHT: Peak Systolic Velocity (PSV) cm/sec ----- Right CCA: 81.5 ----- Right ICA: 95.8 ----- Right ECA: 125 ICA/CCA ratio: 1.18 RIGHT: End Diastole cm/sec ----- Right CCA: 6.3 ----- Right ICA: 16.1 ----- Right ECA: 0.0 LEFT: Peak Systolic Velocity (PSV) cm/sec ----- Left CCA: 76.3 ----- Left ICA: 108 ----- Left ECA: 110 ICA/CCA ratio: 1.42 LEFT: End Diastole cm/sec ----- Left CCA: 4.0 ----- Left ICA: 18.4 ----- Left ECA: 0.0 VERTEBRALS (direction of flow): Right Vertebral: Antegrade Left Vertebral: Antegrade Rhythm: Normal RN FIRST ASSIST NOTES: Mild plaque bilateral bifurcations. No evidence of increased velocities IMPRESSION: Less than 50% stenosis of the bilateral carotid bifurcations. Criteria for Assigning % of Stenosis / Diameter reduction (Estimation based on the indirect measurements of the internal carotid artery velocities (ICA PSV). 1. Normal (no stenosis)=ICA PSV < 125 cm/s: ratio < 2.0: ICA EDV<40 cm/s. 2. Less than 50% stenosis=ICA PSV < 125 cm/s: ratio < 2.0: ICA EDV<40 cm/s. 3. 50 to 69% stenosis=ICA PSV of 125 to 230 cm/s: ration 2.0 ? 4.0: ICA EDV 40-100 cm/s. 4. Greater than 70% stenosis to near occlusion= ICA PSV > 230 cm/s: ratio > 4.0: ICA EDV > 100 cm/s. 5. Near occlusion= ICA PSV velocities may be low or undetectable: variable ratio and ICA EDV. 6. Total occlusion=unable to detect flow.
[2023-08-07] MEDS: RIVAROXABAN 15 MG TAB PO STA (15:41)
--- NOTE | 2023-08-07 18:06 | P.HPIM ---
History of Present Illness H&P Date: 08/07/23 Chief Complaint: Right-sided weakness pleasant 87-year-old patient who follows with Dr Santamaria. Chronic stable medical condition includes hyperlipidemia, prior prostate cancer treated with radiation treatment, hypothyroid,. resident at [facility]. Rather independent. slightly forgetful. April 2023 underwent L5 kyphoplasty. 2 nights ago on Thursday evening patient noticed some right-sided weakness. This was noted yesterday. Patient is finding it difficult to walk. Lost dexterity in his right arm. Denies any change in speech or vision headache. Patient's had a couple of falls at least without injury. Able to swallow. Review of systems: GEN.: Tired EYES: None HEENT: decreased hearing NECK: None RESPIRATORY: None CARDIOVASCULAR: None GASTROINTESTINAL: None GENITOURINARY: urine incontinence MUSCULOSKELETAL: Some joint pains LYMPHATICS: None HEMATOLOGICAL: None PSYCHIATRY: Forgetful NEUROLOGICAL: As above Social history: Lives at [facility]. Independent unit. Patient smoked for 17 years stopped at the age of 33. Less than 1 pack a day. Drinks about 2 beers a day. Retired from [employer]. Physical examination: VITAL SIGNS: 8.6, 62, 18, 143 x 62, 97% room air GENERAL: BMI present 0.4, reclining bed comfortable EYES: Pupils equal. Conjunctiva yoly HEENT: External appearance of nose and ears normal, oral cavity grossly normal. Decreased hearing NECK: JVD not raised; masses not palpable. HEART: First and second heart sounds are normal; no edema. LUNGS: Respiratory rate normal; clear to auscultation. ABDOMEN: Soft, nontender, liver spleen not palpable, no masses palpable. PSYCH: [Patient is able to answer simple questions. - forgetful. MUSCULOSKELETAL:No Clubbing/cyanosis;muscles-grossly intact. OA NEUROLOGICAL: Cranial nerves grossly intact; no facial asymmetry, right arm power 4/5. Decreased dexterity. Right leg power 3/5 LYMPHATICS: No lymph nodes palpable in the axilla and neck INVESTIGATIONS, reviewed in the clinical context: August 07, 2023: White count 9.6 hemoglobin 12.2 platelets 201 sodium 138 potassium 4 creatinine 1.48 EKG tracing personally reviewed by me-poor baseline tracing. Sinus rhythm. Carotid Doppler: Less than 50% stenosis bilateral Chest x-ray film personally reviewed by me-some cardiomegaly CT brain without contrast: Age-related atrophic changes chronic small vessel changes. Assessment and plan: -Subacute stroke that happened approximately 36 hours prior to presentation. Affecting the right side of the body. Patient speech vision swallowing not affected. Suspect ischemic left parietal lobe area Carotid Doppler unremarkable Neurochecks. Neurology consulted MRI 2D echo pending PT OT -Primary osteoarthritis multiple joints Tylenol as needed -L5 kyphoplasty in April 2023 -Chronic urine incontinence. 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 Diet controlled. -Chronic urinary incontinence Ditropan XL 10 mg a day -Medical POA: Abhijit Ambrose -DNR Care was discussed patient's son Abhijit Ambrose over the phone. Discussed with the patient. Patient will need inpatient rehab. Past Medical History Past Medical History: Atrial Fibrillation, CVA/TIA, Diabetes Mellitus, Hyperlipidemia, Prostate Disorder, Thyroid Disorder Additional Past Medical History / Comment(s): CVA 3 years ago History of Any Multi-Drug Resistant Organisms: None Reported Past Surgical History: Orthopedic Surgery, Tonsillectomy Additional Past Surgical History / Comment(s): RT ANKLE SX TOOK SOME BONE FROM LT HIP TO PUT IN LT ANKLE, JUS CATARACTS. L5 kyphoplasty 04/27/23 Past Anesthesia/Blood Transfusion Reactions: No Reported Reaction Additional Past Anesthesia/Blood Transfusion Reaction / Comment(s): does not want blood transfusion Past Alcohol Use History: Daily, None Reported Additional Past Alcohol Use History / Comment(s): STARTED SMOKNG AT AGE 16, QUIT AT AGE 33 LESS THAN 1 PPD. STATES DRINKS 2 BEER PER DAY - Past Family History Mother Family Medical History: Dementia, Diabetes Mellitus Brother(s) Family Medical History: Cancer Additional Family Medical History / Comment(s): "colon problems". colon cancer Medications and Allergies Home Medications Medication Instructions Recorded Confirmed Type Levothyroxine Sodium 88 mcg PO DAILY 07/20/18 08/07/23 History Amiodarone [Cordarone] 100 mg PO DAILY 03/09/23 08/07/23 History Rivaroxaban [Xarelto] 15 mg PO DAILY 03/09/23 08/07/23 History Oxybutynin Chloride [oxyBUTYnin 10 mg PO DAILY 08/07/23 08/07/23 History chloride ER] Allergies Allergy/AdvReac Type Severity Reaction Status Date / Time No Known Allergies Allergy Verified 08/07/23 13:14 Physical Exam Vitals: Vital Signs Temp Pulse Resp BP Pulse Ox 08/07/23 16:00 62 18 143/62 97 08/07/23 13:52 64 18 138/73 97 08/07/23 11:57 98.6 F 64 17 146/66 95 Intake and Output 08/07/23 08/07/23 08/07/23 06:59 14:59 22:59 Other: Weight 91.626 kg Results CBC & Chem 7: 08/07/23 12:31 08/07/23 12:31 Labs: Abnormal Lab Results - Last 24 Hours (Table) 08/07/23 08/07/23 08/07/23 Range/Units 12:31 12:31 12:31 Hgb 12.2 L (13.0-17.5) gm/dL MCH 24.8 L (25.0-35.0) pg MCHC 30.6 L (31.0-37.0) g/dL Monocytes # 1.1 H (0-1.0) k/uL APTT 21.8 L (22.0-30.0) sec Creatinine 1.48 H (0.66-1.25) mg/dL Glucose 163 H (74-99) mg/dL
--- NOTE | 2023-08-07 18:16 | P.CNNES ---
History of Present Illness Consult date: 08/07/23 Requesting physician: Bakari Keen Reason for Consult: cva History of Present Illness: This was a 87-year-old gentleman who presented emergency department because of right-sided weakness. Patient [id number] is at bedside and helps with some of the history. It seems that the patient this past Thursday around 11:59 PM was found on the floor and it seems that his right leg is giving out. He denies lost of consciousness. Next morning at 6:30 AM again he is on the floor with a similar complaint. Per the [id number] it seems in the last 2 days he fallen 3 times. He has been having right upper extremity weakness and seems coordination is off recently maybe since yesterday. No facial weakness or speech difficulty. He is on Xarelto and he stated that he has been compliant taking his medication every day due to his medication on Thursday and after that he has not. Does have numbness over the right side. He resides in an assisted living facility. Has history of A-fib and as stated above he is on X arelto 15mg daily. Notified by his allergist not to be on any antiplatelet in addition such as aspirin since he bruises easily. No history of seizure. He does have underlying history of stroke about 10 to 11 years ago without any residual deficit. Also has underlying history of diabetes. Patient also has history of chronic lower back pain and had Kyphoplasty and has been using a walker in past about 3-4 months. Some of the workup during this hospital visit consisted of: Sodium, calcium, AST ALT CK level are within normal limits. Creatinine is 1.48, glucose is 163. CT of the head is reported as age-related atrophy and chronic small vessel ischemic change without acute intracranial process seen at this time. Reviewed the CT head and I felt patient had lacunar stroke over the left basal ganglia seems neck. Also upon further review it seems that the patient had a stroke and 2016 in which the MRI showed a stroke over the left basal ganglia. Carotid Duplex is reported as less than 50% stenosis of bilateral carotid bifurcation. Review of Systems The positive and negative as per HPI. Past Medical History Past Medical History: Atrial Fibrillation, CVA/TIA, Diabetes Mellitus, Hyperlipidemia, Prostate Disorder, Thyroid Disorder Additional Past Medical History / Comment(s): CVA 3 years ago History of Any Multi-Drug Resistant Organisms: None Reported Past Surgical History: Orthopedic Surgery, Tonsillectomy Additional Past Surgical History / Comment(s): RT ANKLE SX TOOK SOME BONE FROM LT HIP TO PUT IN LT ANKLE, JUS CATARACTS. L5 kyphoplasty 04/27/23 Past Anesthesia/Blood Transfusion Reactions: No Reported Reaction Additional Past Anesthesia/Blood Transfusion Reaction / Comment(s): does not want blood transfusion Past Alcohol Use History: Daily, None Reported Additional Past Alcohol Use History / Comment(s): STARTED SMOKNG AT AGE 16, QUIT AT AGE 33 LESS THAN 1 PPD. STATES DRINKS 2 BEER PER DAY - Past Family History Mother Family Medical History: Dementia, Diabetes Mellitus Brother(s) Family Medical History: Cancer Additional Family Medical History / Comment(s): "colon problems". colon cancer Medications and Allergies Home Medications Medication Instructions Recorded Confirmed Type Levothyroxine Sodium 88 mcg PO DAILY 07/20/18 08/07/23 History Amiodarone [Cordarone] 100 mg PO DAILY 03/09/23 08/07/23 History Rivaroxaban [Xarelto] 15 mg PO DAILY 03/09/23 08/07/23 History Oxybutynin Chloride [oxyBUTYnin 10 mg PO DAILY 08/07/23 08/07/23 History chloride ER] Allergies Allergy/AdvReac Type Severity Reaction Status Date / Time No Known Allergies Allergy Verified 08/07/23 13:14 Physical Examination - Vital Signs Vital Signs: Vital Signs Temp Pulse Resp BP Pulse Ox 08/07/23 16:00 62 18 143/62 97 08/07/23 13:52 64 18 138/73 97 08/07/23 11:57 98.6 F 64 17 146/66 95 Intake and Output 08/07/23 08/07/23 08/07/23 06:59 14:59 22:59 Other: Weight 91.626 kg GENERAL: The patient is lying in bed and is not in acute distress. NEUROLOGICAL: Higher mental function: The patient is awake, alert, oriented to self, place and time. Patient is following commands. No aphasia and no neglect. Cranial nerves: The pupils are round, equal and reactive to light. Visual stout are full to confrontation throughout. Extraocular movement is intact no nystagmus is noted. Facial sensation is normal to touch throughout. The facial strength is normal throughout. Hearing is moderately to severely decreased to hand rub. Tongue is midline and moved [id number] without any difficulty. No dysarthria is noted. Shoulder shrug is normal bilaterally. Motor: The strength is right upper extremity is 4+ while right lower extremity is 3-4-. Left side is 5/5. Normal tone and bulk. Cerebellum: Somewhat ataxia over the right finger to nose. Sensation: Decrease to touch over the right lower extremity but otherwise normal. Reflexes (right/left): Deferred because of pain. Plantars are mute bilaterally. Results - Laboratory Findings CBC and BMP: 08/07/23 12:31 08/07/23 12:31 Abnormal Lab Findings: Abnormal Labs 08/07/23 08/07/23 08/07/23 12: 12: 12:31 Hgb 12.2 L MCH 24.8 L MCHC 30.6 L Monocytes # 1.1 H APTT 21.8 L Creatinine 1.48 H Glucose 163 H Assessment and Plan Assessment: It was an 87-year-old gentleman presents emergency department because of 3 falls in the last 2 days in which he states his leg is giving out but it seems that he is having right-sided weakness upper and lower and he is having coordination issues with the right upper extremity decree sensation over the right lower extremity. He is on Xarelto for A-fib and he stated that he took his Xarelto last on Thursday. Likely acute to subacute stroke in the patient symptoms are right-sided weakness mostly lower more than upper, numbness over the right lower extremity, ataxia on the [id number]. No IV thrombolytics since outside the window and the risk outweigh the benefit. History of stroke without any residual deficit History of atrial fibrillation on Xarelto Chronic kidney insufficiency History of chronic back pain status post kyphoplasty History of COVID-19 in February 2023 Underlying history of diabetes Plan: Patient was resumed on his home dose of Xarelto. And was given aspirin 325 milligram once then was started on aspirin by the ED team. I stopped aspirin since patient stated that he bruises easily and was notified by his allergist to avoid any antiplatelet. Consulted cardiology team to assess if we can change Xarelto to a different drug especially with new strokelike symptoms. Started him on Lipitor 20 mg nightly for secondary stroke prophylaxis Ordered MRI of the brain 2D echo, lipid panel is ordered and is pending Continue neurochecks Cardiac monitoring PT, OT and FINAL INSPECTOR MOVEMENT ASSEMBLY are consulted Will defer the rest of the medical management to primary team For DVT prophylaxis patient is on Xarelto Discussed with the patient and his [id number] Thank you for the consultation Time with Patient: Greater than 30
--- NOTE | 2023-08-07 18:54 | CA ---
Transthoracic Echo Report Name: Simón Ambrose Age: 87 Gender: M : 1935 Exam Date: 08/07/2023 15:41 Exam Location: [facility] Ht (in): 72 Wt (lb): 202 Ordering Physician: Bakari Keen DO Attending/Referring Phys: General Activities Therapist Luz Elena Ellsworth RDCS Procedure CPT: Indications: Thrombus Cardiac Hx: Technical Quality: Good Contrast 1: Total Dose (mL): Contrast 2: Total Dose (mL): MEASUREMENTS (Male / Female) Normal Values 2D ECHO LV Diastolic Diameter PLAX 5.7 cm 4.2 - 5.9 / 3.9 - 5.3 cm LV Systolic Diameter PLAX 3.6 cm IVS Diastolic Thickness 1.2 cm 0.6 - 1.0 / 0.6 - 0.9 cm LVPW Diastolic Thickness 1.0 cm 0.6 - 1.0 / 0.6 - 0.9 cm LV Relative Wall Thickness 0.4 RV Internal Dim ED PLAX 3.0 cm LA Systolic Diameter LX 3.4 cm 3.0 - 4.0 / 2.7 - 3.8 cm LV Diastolic Volume MOD BP 62.4 cm??? 67 - 155 / 56 - 104 cm??? LV Systolic Volume MOD BP 28.1 cm??? 22 - 58 / 19 - 49 cm??? LV Ejection Fraction MOD BP 54.9 % >= 55 % LV Cardiac Index MOD BP 978.3 cm???/min???m??? LV Diastolic Volume MOD 4C 67.9 cm??? LV Systolic Volume MOD 4C 27.1 cm??? LV Ejection Fraction MOD 4C 60.2 % LV Cardiac Index MOD 4C 1167.4 cm???/min???m??? LV Diastolic Length 4C 6.4 cm LV Systolic Length 4C 5.3 cm LV Diastolic Volume MOD 2C 55.4 cm??? LV Systolic Volume MOD 2C 26.8 cm??? LV Ejection Fraction MOD 2C 51.6 % LV Cardiac Index MOD 2C 815.2 cm???/min???m??? LV Diastolic Length 2C 6.7 cm LV Systolic Length 2C 5.9 cm M-MODE Aortic Root Diameter MM 3.7 cm DOPPLER AV Peak Velocity 101.2 cm/s AV Peak Gradient 4.1 mmHg AI Peak Velocity 173.6 cm/s AI Peak Gradient 12.1 mmHg AI Pressure Half Time 1142.4 ms TR Peak Velocity 300.4 cm/s TR Peak Gradient 36.1 mmHg Right Ventricular Systolic Press 40.9 mmHg FINDINGS Left Ventricle Left ventricular ejection fraction is estimated at 55-60 %. Left ventricular cavity size normal. Mildly increased septal wall thickness. No obvious regional wall motion abnormalities. Right Ventricle Normal right ventricular size. Mild pulmonary hypertension. Right Atrium Normal right atrial size. No right atrial thrombus or mass seen. Left Atrium Normal left atrial size. No left atrial thrombus or mass present. Mitral Valve Structurally normal mitral valve. No mitral stenosis, regurgitation or prolapse. Aortic Valve Trileaflet aortic valve. No aortic valve stenosis . Mild aortic regurgitation. Tricuspid Valve Structurally normal tricuspid valve. Mild tricuspid regurgitation. Pulmonic Valve Structurally normal pulmonic valve. No pulmonic regurgitation. Pericardium No pericardial effusion. Aorta Normal size aortic root and proximal ascending aorta. CONCLUSIONS Poorly visualized endocardium and intracardiac valves Normal LV systolic function Previewed by: Dr. Benito Sparks MD (Electronically Signed) Final Date: 07 August 2023 18:53
[2023-08-07 20:38] LABS: Glucose,Whole Blood 145 mg/dL (70-110)
[2023-08-07] MEDS: FAMOTIDINE 20 MG TAB PO SCH (21:45)
[2023-08-07] MEDS: ATORVASTATIN 20 MG TAB PO SCH (21:45)
[2023-08-08 06:06] LABS: Glucose,Whole Blood 125 mg/dL (70-110)
[2023-08-08] MEDS: LEVOTHYROXINE 88 MCG TAB PO SCH (06:42)
[2023-08-08] MEDS: OXYBUTYNIN 10 MG TAB.ER.24 PO SCH (08:24)
[2023-08-08] MEDS: AMIODARONE 100 MG TAB PO SCH (08:24)
[2023-08-08] MEDS: RIVAROXABAN 15 MG TAB PO SCH (08:24)
[2023-08-08] MEDS ORDERED: RIVAROXABAN 20 MG TAB PO SCH (09:00)
[2023-08-08] MEDS ORDERED: ASPIRIN 325 MG TAB PO SCH (09:00)
[2023-08-08] MEDS ORDERED: ASPIRIN 81 MG PO SCH (09:00)
--- NOTE | 2023-08-08 09:51 | P.CRDCN ---
History of Present Illness History of present illness: HISTORY OF PRESENT ILLNESS: This is a 87-year-old male with a past medical history significant for CVA, atrial fibrillation, dementia, and previous cardioversion. Patient follows in the office with Dr. Eldridge. We have been asked to see the patient in consultation for anticoagulation recommendations. Patient examined at the bedside. Patient presented to the hospital with right-sided weakness. Patient does state he had a fall secondary to his leg giving out on him. Patient denies having any chest pain or pressure. He denies any shortness of breath. He denies any dizziness or lightheadedness. Vital signs are stable. The patient is currently prescribed Xarelto 15 mg daily. DIAGNOSTICS: - EKG reveals atrial fibrillation versus junctional rhythm. No clear-cut P waves on EKG with baseline artifact - Chest xray negative for acute process -Carotid Doppler: Less than 50% stenosis bilaterally - Laboratory data: WBC 9.6. Hemoglobin 12.2. Platelet count 201. Sodium 138. Potassium 4.0. BUN 19. Creatinine 1.48. - Current home cardiac medications include amiodarone 100 mg daily and Xarelto 15 mg daily. - Echocardiogram obtained this admission reveals ejection fraction 55 to 60%, mild pulm hypertension, mild AR, mild TR REVIEW OF SYSTEMS: At the time of my exam: CONSTITUTIONAL: Denies fever or chills. HEENT: Denies blurred vision, vision changes, or eye pain. Denies hemoptysis CARDIOVASCULAR: Denies chest pain. Denies orthopnea. Denies PND. Denies palpitations RESPIRATORY: Denies shortness of breath. GASTROINTESTINAL: Denies abdominal pain. Denies nausea or vomiting. HEMATOLOGIC: Denies bleeding disorders. GENITOURINARY: Denies any blood in urine. SKIN: Denies pruitis. Denies rash. PHYSICAL EXAM: VITAL SIGNS: Reviewed. GENERAL: Well-developed in no acute distress. HEENT: Head is normocephalic. Pupils are equal, round. Sclerae anicteric. Mucous membranes of the mouth are moist. Neck supple. No JVD or thyromegaly LUNGS: Respirations even and unlabored. Lungs essentially clear to auscultation bilaterally. HEART: Regular rate and rhythm. S1 and S2 heard. Systolic murmur noted. ABDOMEN: Soft. Nondistended. Nontender. EXTREMITIES: Right-sided weakness present. No clubbing or cyanosis. Peripheral pulses intact. No lower extremity edema NEUROLOGIC: Awake and alert. ASSESSMENT: Right-sided weakness, rule out CVA Persistent atrial fibrillation History of CVA, 2015 History of cardioversion, 2021 History of dementia Chronic kidney disease PLAN: 2D echo obtained and reviewed Resume home cardiac medications Check TSH Increase Xarelto to 20mg daily for appropriate thromboembolic protection Neurology following. MRI of the brain is pending Further recommendations pending patient course Nurse practitioner note has been reviewed by physician. Signing provider agrees with the documented findings, assessment, and plan of care documented by MACHINE REPAIR PERSON as a scribe. Past Medical History Past Medical History: Atrial Fibrillation, CVA/TIA, Diabetes Mellitus, Hyperlipidemia, Prostate Disorder, Thyroid Disorder Additional Past Medical History / Comment(s): CVA 3 years ago History of Any Multi-Drug Resistant Organisms: None Reported Past Surgical History: Orthopedic Surgery, Tonsillectomy Additional Past Surgical History / Comment(s): RT ANKLE SX TOOK SOME BONE FROM LT HIP TO PUT IN LT ANKLE, JUS CATARACTS. L5 kyphoplasty 04/27/23 Past Anesthesia/Blood Transfusion Reactions: No Reported Reaction Additional Past Anesthesia/Blood Transfusion Reaction / Comment(s): does not want blood transfusion Past Psychological History: No Psychological Hx Reported Smoking Status: Former smoker Past Alcohol Use History: Daily, None Reported Additional Past Alcohol Use History / Comment(s): STARTED SMOKNG AT AGE 16, QUIT AT AGE 33 LESS THAN 1 PPD. Occasion drink Past Drug Use History: None Reported - Past Family History Mother Family Medical History: Dementia, Diabetes Mellitus Brother(s) Family Medical History: Cancer Additional Family Medical History / Comment(s): "colon problems". colon cancer Medications and Allergies Home Medications Medication Instructions Recorded Confirmed Type Levothyroxine Sodium 88 mcg PO DAILY 07/20/18 08/07/23 History Amiodarone [Cordarone] 100 mg PO DAILY 03/09/23 08/07/23 History Rivaroxaban [Xarelto] 15 mg PO DAILY 03/09/23 08/07/23 History Oxybutynin Chloride [oxyBUTYnin 10 mg PO DAILY 08/07/23 08/07/23 History chloride ER] Allergies Allergy/AdvReac Type Severity Reaction Status Date / Time No Known Allergies Allergy Verified 08/07/23 13:14 Physical Exam Vitals: Vital Signs Temp Pulse Pulse Resp BP BP Pulse Ox 08/08/23 07:59 97.6 F 64 17 116/57 96 08/08/23 04:40 98.2 F 60 16 152/85 96 08/08/23 00:08 98.2 F 70 18 150/79 97 08/07/23 21:22 16 131/63 94 L 08/07/23 20:36 98.6 F 70 16 169/66 95 08/07/23 20:07 98.4 F 65 18 148/69 98 08/07/23 18:00 61 16 148/67 95 08/07/23 17:00 70 16 129/56 96 08/07/23 16:00 62 18 143/62 97 08/07/23 13:52 64 18 138/73 97 08/07/23 11:57 98.6 F 64 17 146/66 95 Intake and Output 08/07/23 08/08/23 08/08/23 22:59 06:59 14:59 Output Total 626 Balance -626 Output: Urine 625 Stool 1 Other: Voiding Method Urinal Urinal Urinal # Voids 1 1 # Bowel Movements 1 Weight 91.626 kg Results 08/07/23 12:31 08/07/23 12:31 Cardiac Enzymes 08/07/23 Range/Units 12:31 AST 21 (17-59) U/L Coagulation 08/07/23 Range/Units 12:31 PT 11.5 (10.0-12.5) sec APTT 21.8 L (22.0-30.0) sec CBC 08/07/23 Range/Units 12:31 WBC 9.6 (3.8-10.6) k/uL RBC 4.90 (4.30-5.90) m/uL Hgb 12.2 L (13.0-17.5) gm/dL Hct 39.8 (39.0-53.0) % Plt Count 201 (150-450) k/uL Comprehensive Metabolic Panel 08/07/23 Range/Units 12:31 Sodium 138 (137-145) mmol/L Potassium 4.0 (3.5-5.1) mmol/L Chloride 104 (98-107) mmol/L Carbon Dioxide 29 (22-30) mmol/L BUN 19 (9-20) mg/dL Creatinine 1.48 H (0.66-1.25) mg/dL Glucose 163 H (74-99) mg/dL Calcium 8.7 (8.4-10.2) mg/dL AST 21 (17-59) U/L ALT 12 (4-49) U/L Alkaline Phosphatase 68 (38-126) U/L Total Protein 6.6 (6.3-8.2) g/dL Albumin 3.6 (3.5-5.0) g/dL Current Medications Generic Name Dose Route Start Last Admin Trade Name Myrtle PRN Reason Stop Dose Admin Amiodarone HCl 100 mg 08/08/23 09:00 08/08/23 08:24 Amiodarone 100 Mg Tab PO 100 mg DAILY SCOTTIE Administration Atorvastatin Calcium 20 mg 08/07/23 21:00 08/07/23 21:45 Atorvastatin 20 Mg Tab PO 20 mg HS SCOTTIE Administration Famotidine 20 mg 08/07/23 21:00 08/07/23 21:45 Famotidine 20 Mg Tab PO 20 mg HS SCOTTIE Administration Sodium Chloride 1,000 mls @ 100 mls/hr 08/07/23 13:45 08/08/23 00:07 Saline 0.9% IV 100 mls/hr .Q10H SCOTTIE Administration Levothyroxine Sodium 88 mcg 08/08/23 06:30 08/08/23 06:42 Levothyroxine 88 Mcg Tab PO 88 mcg 0630 SCOTTIE Administration Oxybutynin Chloride 10 mg 08/08/23 09:00 08/08/23 08:24 Oxybutynin 10 Mg Tab.Er.24 PO 10 mg DAILY SCOTTIE Administration Rivaroxaban 20 mg 08/09/23 09:00 Rivaroxaban 20 Mg Tab PO DAILY SCOTTIE Protocol Intake and Output 08/07/23 08/08/23 08/08/23 22:59 06:59 14:59 Output Total 626 Balance -626 Output: Urine 625 Stool 1 Other: Voiding Method Urinal Urinal Urinal # Voids 1 1 # Bowel Movements 1 Weight 91.626 kg 08/07/23 12:31 08/07/23 12:31
[2023-08-08 11:39] LABS: Glucose,Whole Blood 121 mg/dL (70-110)
[2023-08-08 13:00] LABS: Chol/HDL Ratio 4.23 Ratio; LDL Cholesterol,Calculated 103.5 mg/dL (0.0-131.0)
--- NOTE | 2023-08-08 14:13 | P.PN ---
Subjective Progress Note Date: 08/08/23 I am following-up with patient and he feels about the same. Denies of any new neurological issues. Objective - Vital Signs Vital signs: Vital Signs Temp 97.6 F 08/08/23 07:59 Pulse 58 L 08/08/23 11:04 Resp 15 08/08/23 11:04 BP 134/40 08/08/23 11:04 Pulse Ox 95 08/08/23 11:04 FiO2 Intake & Output 08/07/23 08/08/23 08/08/23 18:59 06:59 18:59 Intake Total 118 Output Total 626 400 Balance -626 -282 Weight 91.626 kg 91.626 kg Intake: Oral 118 Output: Urine 625 400 Stool 1 Other: Voiding Method Urinal Urinal # Voids 1 # Bowel Movements 1 - Exam GENERAL: The patient is lying in bed and is not in acute distress. NEUROLOGICAL: Higher mental function: The patient is awake, alert, oriented to self, place and time. Patient is following commands. No aphasia and no neglect. Cranial nerves: The pupils are round, equal and reactive to light. Visual stout are full to confrontation throughout. Extraocular movement is intact no nystagmus is noted. Facial sensation is normal to touch throughout. The facial strength is normal throughout. Hearing is moderately to severely decreased to hand rub. Tongue is midline and moved [id number] without any difficulty. No dysarthria is noted. Shoulder shrug is normal bilaterally. Motor: The strength is right upper extremity is 4+ while right lower extremity is 3-4-. Left side is 5/5. Normal tone and bulk. Cerebellum: Somewhat ataxia over the right finger to nose. Sensation: Decrease to touch over the right lower extremity but otherwise yoly l. Reflexes (right/left): Deferred because of pain. Plantars are mute bilaterally. Some of the workup during this hospital visit consisted of: Sodium, calcium, AST ALT CK level are within normal limits. Creatinine is 1.48, glucose is 163. Lipid panel: TG 101, Cholestrol 162, LDL [address] of the head is reported as age-related atrophy and chronic small vessel ischemic change without acute intracranial process seen at this time. Reviewed the CT head and I felt patient had lacunar stroke over the left basal ganglia seems neck. Also upon further review it seems that the patient had a stroke and 2016 in which the MRI showed a stroke over the left basal ganglia. Carotid Duplex is reported as less than 50% stenosis of bilateral carotid bifurcation. 2D echo: Poorly visualized endocardium and intracardiac valves. Normal LV systolic function. - Labs CBC & Chem 7: 08/07/23 12:31 08/07/23 12:31 Labs: Abnormal Lab Results - Last 24 Hours (Table) 08/07/23 08/08/23 08/08/23 Range/Units 20:37 06:03 07:07 POC Glucose (mg/dL) 145 H 125 H (70-110) mg/dL HDL Cholesterol 38.30 L (40.00-60.00) mg/dL 08/08/23 Range/Units 11:38 POC Glucose (mg/dL) 121 H (70-110) mg/dL HDL Cholesterol (40.00-60.00) mg/dL Assessment and Plan Assessment: It was an 87-year-old gentleman presents emergency department because of 3 falls in the last 2 days in which he states his leg is giving out but it seems that he is having right-sided weakness upper and lower and he is having coordination issues with the right upper extremity decree sensation over the right lower extremity. He is on Xarelto for A-fib and he stated that he took his Xarelto last on Thursday. Likely acute to subacute stroke in the patient symptoms are right-sided weakness mostly lower more than upper, numbness over the right lower extremity, ataxia on the [id number]. No IV thrombolytics since outside the window and the risk outweigh the benefit. History of stroke without any residual deficit History of atrial fibrillation on Xarelto Chronic kidney insufficiency History of chronic back pain status post kyphoplasty History of COVID-19 in February 2023 Underlying history of diabetes Plan: Patient was resumed on his home dose of Xarelto 15mg daily. And was given aspirin 325 milligram once then was started on aspirin by the ED team. I stopped aspirin since patient stated that he bruises easily and was notified by his election judge to avoid any antiplatelet. It seems the cardiology team went up on Xarelto to 20mg daily. Consulted cardiology team is on board. Started him on Lipitor 20 mg nightly for secondary stroke prophylaxis Pending MRI of the brain Continue neurochecks Cardiac monitoring PT, OT and STRAND FORMING MACHINE OPERATOR are consulted Will defer the rest of the medical management to primary team For DVT prophylaxis patient is on Xarelto Plan is discussed with the patient. Time with Patient: Less than 30
--- NOTE | 2023-08-08 14:38 | P.PN ---
Progress Note - Text Progress Note Date: 08/08/23 Chief Complaint: Right-sided weakness pleasant 87-year-old patient who follows with Dr Santamaria. Chronic stable medical condition includes hyperlipidemia, prior prostate cancer treated with radiation treatment, hypothyroid,. resident at [facility]. Rather independ ent. slightly forgetful. April 2023 underwent L5 kyphoplasty. 2 nights ago on Thursday evening patient noticed some right-sided weakness. This was noted yesterday. Patient is finding it difficult to walk. Lost dexterity in his right arm. Denies any change in speech or vision headache. Patient's had a couple of falls at least without injury. Able to swallow. August 07: No change in neurological status. Tolerating diet. 2D echo unremarkable. Pending MRI. Aspirin was discontinued by neurology as patient informed that he bruises easily. Cardiology did opt a dose of Xarelto. Active Medications Amiodarone HCl (Amiodarone 100 Mg Tab) 100 mg PO DAILY [facility] Last Admin: 08/08/23 08:24 Dose: 100 mg Atorvastatin Calcium (Atorvastatin 20 Mg Tab) 20 mg PO HS [facility] Last Admin: 08/07/23 21:45 Dose: 20 mg Famotidine (Famotidine 20 Mg Tab) 20 mg PO HS [facility] Last Admin: 08/07/23 21:45 Dose: 20 mg Levothyroxine Sodium (Levothyroxine 88 Mcg Tab) 88 mcg PO 0630 [facility] Last Admin: 08/08/23 06:42 Dose: 88 mcg Oxybutynin Chloride (Oxybutynin 10 Mg Tab.Er.24) 10 mg PO DAILY [facility] Last Admin: 08/08/23 08:24 Dose: 10 mg Rivaroxaban (Rivaroxaban 20 Mg Tab) 20 mg PO DAILY [facility]; Protocol Social history: Lives at [facility]. Independent unit. Patient smoked for 17 years stopped at the age of 33. Less than 1 pack a day. Drinks about 2 beers a day. Retired from [employer]. Physical examination: VITAL SIGNS: 97.6, 58, 15, 134 x 40, 95% room air GENERAL: Resting in bed, comfortable EYES: Pupils equal. Conjunctiva yoly HEENT: External appearance of nose and ears normal, oral cavity grossly normal. Decreased hearing NECK: JVD not raised; masses not palpable. HEART: First and second heart sounds are normal; no edema. LUNGS: Respiratory rate normal; clear to auscultation. ABDOMEN: Soft, nontender, liver spleen not palpable, no masses palpable. PSYCH: [Patient is able to answer simple questions. - forgetful. MUSCULOSKELETAL:No Clubbing/cyanosis;muscles-grossly intact. OA NEUROLOGICAL: Cranial nerves grossly intact; no facial asymmetry, right arm power 4/5. Decreased dexterity. Right leg power 3/5 INVESTIGATIONS, reviewed in the clinical context: 2D echocardiogram: EF 55 to 60% August 07, 2023: White count 9.6 hemoglobin 12.2 platelets 201 sodium 138 potassium 4 creatinine 1.48 EKG tracing personally reviewed by me-poor baseline tracing. Sinus rhythm. Carotid Doppler: Less than 50% stenosis bilateral Chest x-ray film personally reviewed by me-some cardiomegaly CT brain without contrast: Age-related atrophic changes chronic small vessel changes. Assessment and plan: -Subacute stroke that happened approximately 36 hours prior to presentation. Affecting the right side of the body. Patient speech vision swallowing not affected. Suspect ischemic left parietal lobe area Carotid Doppler unremarkable Neurochecks. Neurology consulted MRI-PENDING 2D echo-unremarkable PT OT Has been discontinued pending cardiology as patient informed him that he gets easily bruising -Primary osteoarthritis multiple joints Tylenol as needed -L5 kyphoplasty in April 2023 -Chronic urine incontinence. 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 Diet controlled. -Chronic urinary incontinence Ditropan XL 10 mg a day -Medical POA: Abhijit Ambrose -DNR Discussed case with patient. Pending MRI. Past Medical History Past Medical History: Atrial Fibrillation, CVA/TIA, Diabetes Mellitus, Hyperlipidemia, Prostate Disorder, Thyroid Disorder Additional Past Medical History / Comment(s): CVA 3 years ago History of Any Multi-Drug Resistant Organisms: None Reported Past Surgical History: Orthopedic Surgery, Tonsillectomy Additional Past Surgical History / Comment(s): RT ANKLE SX TOOK SOME BONE FROM LT HIP TO PUT IN LT ANKLE, JUS CATARACTS. L5 kyphoplasty 04/27/23 Past Anesthesia/Blood Transfusion Reactions: No Reported Reaction Additional Past Anesthesia/Blood Transfusion Reaction / Comment(s): does not want blood transfusion Past Alcohol Use History: Daily, None Reported Additional Past Alcohol Use History / Comment(s): STARTED SMOKNG AT AGE 16, QUIT AT AGE 33 LESS THAN 1 PP
[2023-08-08 16:23] LABS: Glucose,Whole Blood 131 mg/dL (70-110)
[2023-08-08] MEDS ORDERED: ZINC OXIDE PASTE (Z-GUARD) 1 APPLIC TOPICAL PRN (18:57)
[2023-08-08 20:12] LABS: Glucose,Whole Blood 131 mg/dL (70-110)
[2023-08-09 06:14] LABS: Glucose,Whole Blood 115 mg/dL (70-110)
--- NOTE | 2023-08-09 08:18 | P.PN ---
Subjective HISTORY OF PRESENT ILLNESS: This is a 87-year-old male with a past medical history significant for CVA, atrial fibrillation, dementia, and previous cardioversion. Patient follows in the office with Dr. Eldridge. We have been asked to see the patient in consultation for anticoagulation recommendations. Patient examined at the bedside. Patient presented to the hospital with right-sided weakness. Patient does state he had a fall secondary to his leg giving out on him. Patient denies having any chest pain or pressure. He denies any shortness of breath. He denies any dizziness or lightheadedness. Vital signs are stable. The patient is currently prescribed Xarelto 15 mg daily. DIAGNOSTICS: - EKG reveals atrial fibrillation versus junctional rhythm. No clear-cut P waves on EKG with baseline artifact - Chest xray negative for acute process -Carotid Doppler: Less than 50% stenosis bilaterally - Laboratory data: WBC 9.6. Hemoglobin 12.2. Platelet count 201. Sodium 138. Potassium 4.0. BUN 19. Creatinine 1.48. - Current home cardiac medications include amiodarone 100 mg daily and Xarelto 15 mg daily. - Echocardiogram obtained this admission reveals ejection fraction 55 to 60%, mild pulm hypertension, mild AR, mild TR 08/09/2023 Patient examined this morning at the bedside. Patient currently denies chest pain or pressure. He denies shortness of breath. MRI of the brain remains pending. Patient continues to report weakness in the right side of his body although improved. He states he is able to lift his right leg off the bed this morning. Vital signs are stable. SBP 150-160s. Telemetry reveals atrial fibrillation with controlled ventricular rate. PHYSICAL EXAM: VITAL SIGNS: Reviewed. GENERAL: Well-developed in no acute distress. HEENT: Head is normocephalic. Pupils are equal, round. Sclerae anicteric. Mucous membranes of the mouth are moist. Neck supple. No JVD or thyromegaly LUNGS: Respirations even and unlabored. Lungs essentially clear to auscultation bilaterally. HEART: Irregular rate and rhythm. S1 and S2 heard. Systolic murmur noted. ABDOMEN: Soft. Nondistended. Nontender. EXTREMITIES: Right-sided weakness present. No clubbing or cyanosis. Peripheral pulses intact. No lower extremity edema NEUROLOGIC: Awake and alert. ASSESSMENT: Right-sided weakness, rule out CVA, MRI pending Persistent atrial fibrillation History of CVA, 2016 History of cardioversion, 2021 History of dementia Chronic kidney disease PLAN: New increased dose of Xarelto 20mg daily for appropriate thromboembolic protection Patient states he has a pharmacy in [place] for all of his prescriptions. Will ask nursing to add this pharmacy to patient's chart. Neurology following. MRI of the brain is pending Further recommendations pending patient course Nurse practitioner note has been reviewed by physician. Signing provider agrees with the documented findings, assessment, and plan of care documented by [employer] as a scribe. Objective - Vital Signs Vital signs: Vital Signs Temp 97.4 F L 08/09/23 04:52 Pulse 60 08/09/23 04:52 Resp 16 08/09/23 04:52 BP 158/74 08/09/23 04:52 Pulse Ox 97 08/09/23 04:52 FiO2 Intake & Output 08/08/23 08/09/23 08/09/23 18:59 06:59 18:59 Intake Total 236 Output Total 900 1000 Balance -664 -1000 Intake: Oral 236 Output: Urine 900 1000 Other: Voiding Method Urinal Urinal # Voids 1 - Labs CBC & Chem 7: 08/07/23 12:31 08/07/23 12:31 Labs: Abnormal Lab Results - Last 24 Hours (Table) 08/08/23 08/08/23 08/08/23 Range/Units 07:07 11:38 16:19 POC Glucose (mg/dL) 121 H 131 H (70-110) mg/dL HDL Cholesterol 38.30 L (40.00-60.00) mg/dL 08/08/23 08/09/23 Range/Units 20:09 06:12 POC Glucose (mg/dL) 131 H 115 H (70-110) mg/dL HDL Cholesterol (40.00-60.00) mg/dL
[2023-08-09] MEDS: RIVAROXABAN 20 MG TAB PO SCH (08:32)
[2023-08-09 11:50] LABS: Glucose,Whole Blood 128 mg/dL (70-110)
--- NOTE | 2023-08-09 14:45 | P.PN ---
Subjective Progress Note Date: 08/09/23 I am following-up with patient and he is accompanied by his son and [id number]. The patient feels about the same and not worse. He continues to have right sided weakness. Objective - Vital Signs Vital signs: Vital Signs Temp 97.3 F L 08/09/23 11:29 Pulse 67 08/09/23 11:29 Resp 17 08/09/23 11:29 BP 143/84 08/09/23 11:29 Pulse Ox 97 08/09/23 11:29 FiO2 Intake & Output 08/08/23 08/09/23 08/09/23 18:59 06:59 18:59 Intake Total 236 118 Output Total 900 1000 Balance -664 -1000 118 Intake: Oral 236 118 Output: Urine 900 1000 Other: Voiding Method Urinal Urinal Urinal Diaper # Voids 1 1 - Exam GENERAL: The patient is sitting in a recliner chair and is not in acute distress. NEUROLOGICAL: Higher mental function: The patient is awake, alert, oriented to self, place and time. Patient is following commands. No aphasia and no neglect. Cranial nerves: The pupils are round, equal and reactive to light. Visual f ields are full to confrontation throughout. Extraocular movement is intact no nystagmus is noted. Facial sensation is normal to touch throughout. The facial strength is normal throughout. Hearing is moderately to severely decreased to hand rub. Tongue is midline and moved [id number] without any difficulty. No dysarthria is noted. Shoulder shrug is normal bilaterally. Motor: The strength is right upper extremity is 4+ while right lower extremity is 3-4-. Left side is 5/5. Normal tone and bulk. Cerebellum: Somewhat ataxia over the right finger to nose. Sensation: Normal to touch throughout. Some of the workup during this hospital visit consisted of: Sodium, calcium, AST ALT CK level are within normal limits. Creatinine is 1.48, glucose is 163. Lipid panel: TG 101, Cholestrol 162, LDL [address] of the head is reported as age-related atrophy and chronic small vessel ischemic change without acute intracranial process seen at this time. Reviewed the CT head and I felt patient had lacunar stroke over the left basal ganglia seems neck. Also upon further review it seems that the patient had a stroke and 2016 in which the MRI showed a stroke over the left basal ganglia. Carotid Duplex is reported as less than 50% stenosis of bilateral carotid bifurcation. 2D echo: Poorly visualized endocardium and intracardiac valves. Normal LV systolic function. - Labs CBC & Chem 7: 08/07/23 12:31 08/07/23 12:31 Labs: Abnormal Lab Results - Last 24 Hours (Table) 08/08/23 08/08/23 08/09/23 Range/Units 16:19 20:09 06:12 POC Glucose (mg/dL) 131 H 131 H 115 H (70-110) mg/dL 08/09/23 Range/Units 11:47 POC Glucose (mg/dL) 128 H (70-110) mg/dL Assessment and Plan Assessment: It was an 87-year-old gentleman presents emergency department because of 3 falls in the last 2 days in which he states his leg is giving out but it seems that he is having right-sided weakness upper and lower and he is having coordination issues with the right upper extremity decree sensation over the right lower extremity. He is on Xarelto for A-fib and he stated that he took his Xarelto last on Thursday. Likely acute to subacute stroke in the patient symptoms are right-sided weakness mostly lower more than upper, numbness over the right lower extremity, ataxia on the [id number]-[id number]-aqer. No IV thrombolytics since outside the window and the risk outweigh the benefit. History of stroke without any residual deficit History of atrial fibrillation on Xarelto Chronic kidney insufficiency History of chronic back pain status post kyphoplasty History of COVID-19 in February 2023 Underlying history of diabetes Plan: Patient was resumed on his home dose of Xarelto 15mg daily. And was given aspirin 325 milligram once then was started on aspirin by the ED team. I stopped aspirin since patient stated that he bruises easily and was notified by his associate [employer] to avoid any antiplatelet. It seems the cardiology team went up on Xarelto to 20mg daily. Consulted cardiology team is on board. Started him on Lipitor 20 mg nightly for secondary stroke prophylaxis Pending MRI of the brain. If MRI Brain is negative then recommend pursuing MRI Cervical spine. Continue neurochecks Cardiac monitoring PT, OT and JACQUARD LOOM CARD CHANGER are consulted Will defer the rest of the medical management to primary team For DVT prophylaxis patient is on Xarelto Plan is discussed with the patient, his son and [id number] who are are at bedside. Dr. Craig will resume neurology service tomorrow A.M. Time with Patient: Less than 30
[2023-08-09 16:28] LABS: Glucose,Whole Blood 142 mg/dL (70-110)
--- NOTE | 2023-08-09 17:22 | P.PN ---
Progress Note - Text Progress Note Date: 08/09/23 Chief Complaint: Right-sided weakness pleasant 87-year-old patient who follows with Dr Santamaria. Chronic stable medical condition includes hyperlipidemia, prior prostate cancer treated with radiation treatment, hypothyroid,. resident at [facility]. Rather independ ent. slightly forgetful. April 2023 underwent L5 kyphoplasty. 2 nights ago on Thursday evening patient noticed some right-sided weakness. This was noted yesterday. Patient is finding it difficult to walk. Lost dexterity in his right arm. Denies any change in speech or vision headache. Patient's had a couple of falls at least without injury. Able to swallow. August 07: No change in neurological status. Tolerating diet. 2D echo unremarkable. Pending MRI. Aspirin was discontinued by neurology as patient informed that he bruises easily. Cardiology did opt a dose of Xarelto. August 08: Up in the recliner. Tolerating diet. Pending MRI. Patient's son Abhijit at the bedside. Medications to continue. Active Medications Amiodarone HCl (Amiodarone 100 Mg Tab) 100 mg PO DAILY [facility] Last Admin: 08/09/23 08:32 Dose: 100 mg Atorvastatin Calcium (Atorvastatin 20 Mg Tab) 20 mg PO HS [facility] Last Admin: 08/08/23 19:42 Dose: 20 mg Famotidine (Famotidine 20 Mg Tab) 20 mg PO HS [facility] Last Admin: 08/08/23 19:43 Dose: 20 mg Levothyroxine Sodium (Levothyroxine 88 Mcg Tab) 88 mcg PO 0630 [facility] Last Admin: 08/09/23 06:31 Dose: 88 mcg Oxybutynin Chloride (Oxybutynin 10 Mg Tab.Er.24) 10 mg PO DAILY [facility] Last Admin: 08/09/23 08:32 Dose: 10 mg Petrolatum (Zinc Oxide Paste (Z-Guard) 1 Applic) 1 applic TOPICAL DAILY PR[facility]; Protocol PRN Reason: Skin Irritation Rivaroxaban (Rivaroxaban 20 Mg Tab) 20 mg PO DAILY [facility]; Protocol Last Admin: 08/09/23 08:32 Dose: 20 mg Social history: Lives at [facility]. Independent unit. Patient smoked for 17 years stopped at the age of 33. Less than 1 pack a day. Drinks about 2 beers a day. Retired from [employer]. Physical examination: VITAL SIGNS: 97.3, 87, 16, 1 3582, 97% room air GENERAL: Resting in bed, comfortable EYES: Pupils equal. Conjunctiva yoly HEENT: External appearance of nose and ears normal, oral cavity grossly normal. Decreased hearing NECK: JVD not raised; masses not palpable. HEART: First and second heart sounds are normal; no edema. LUNGS: Respiratory rate normal; clear to auscultation. ABDOMEN: Soft, nontender, liver spleen not palpable, no masses palpable. PSYCH: [Patient is able to answer simple questions. - forgetful. MUSCULOSKELETAL:No Clubbing/cyanosis;muscles-grossly intact. OA NEUROLOGICAL: Cranial nerves grossly intact; no facial asymmetry, right arm power 4/5. Decreased dexterity. Right leg power 3/5 INVESTIGATIONS, reviewed in the clinical context: 2D echocardiogram: EF 55 to 60% August 07, 2023: White count 9.6 hemoglobin 12.2 platelets 201 sodium 138 potassium 4 creatinine 1.48 EKG tracing personally reviewed by me-poor baseline tracing. Sinus rhythm. Carotid Doppler: Less than 50% stenosis bilateral Chest x-ray film personally reviewed by me-some cardiomegaly CT brain without contrast: Age-related atrophic changes chronic small vessel changes. Assessment and plan: -Subacute stroke that happened approximately 36 hours prior to presentation. Affecting the right side of the body. Patient speech vision swallowing not affected. Suspect ischemic left parietal lobe area Carotid Doppler unremarkable Neurochecks. Neurology consulted MRI-PENDING 2D echo-unremarkable PT OT Aspirin discontinued per neurology as patient informed him that he gets easily bruising -Primary osteoarthritis multiple joints Tylenol as needed -L5 kyphoplasty in April 2023 -Chronic urine incontinence. 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 Diet controlled. -Chronic urinary incontinence Ditropan XL 10 mg a day -Medical POA: Abhijit Ambrose -DNR Pending MRI. Discharge to rehab tomorrow. Discussed with patient's son and [id number] at the bedside. Past Medical History Past Medical History: Atrial Fibrillation, CVA/TIA, Diabetes Mellitus, Hyperlipidemia, Prostate Disorder, Thyroid Disorder Additional Past Medical History / Comment(s): CVA 3 years ago History of Any Multi-Drug Resistant Organisms: None Reported Past Surgical History: Orthopedic Surgery, Tonsillectomy Additional Past Surgical History / Comment(s): RT ANKLE SX TOOK SOME BONE FROM LT HIP TO PUT IN LT ANKLE, JUS CATARACTS. L5 kyphoplasty 04/27/23 Past Anesthesia/Blood Transfusion Reactions: No Reported Reaction Additional Past Anesthesia/Blood Transfusion Reaction / Comment(s): does not want blood transfusion Past Alcohol Use History: Daily, None Reported Additional Past Alcohol Use History / Comment(s): STARTED SMOKNG AT AGE 16, QUIT AT AGE 33 LESS THAN 1 PP
[2023-08-09 19:58] LABS: Glucose,Whole Blood 171 mg/dL (70-110)
[2023-08-09] MEDS: QUEtiapine 25 MG TAB PO STA (21:12)
--- NOTE | 2023-08-09 21:40 | CT ---
EXAMINATION TYPE: CT brain wo con CT DLP: 1213.4 mGycm, Automated exposure control for dose reduction was used. DATE OF EXAM: 08/09/2023 9:09 PM COMPARISON: 08/07/2023. CLINICAL INDICATION:Male, 87 years old with history of AMS, Sudden onset of AMS. TECHNIQUE: Brain: Axial CT images of the brain were obtained with coronal and sagittal reformats created and rev iewed. Contrast used: None. Oral contrast used: None. FINDINGS: Brain: Extra-axial spaces: No abnormal extra-axial fluid collections. Ventricular system: Dilatation in proportion to cerebral atrophy. Cerebral parenchyma: Remote injury to the left frontal lobe periventricular white matter is stable le ft posterior frontal lobe/parietal lobe periventricular white matter also demonstrates some asymmetri c white matter change. Remote injury there is prominent perivascular space to the right basal ganglia unchanged from prior. Cerebral atrophy. No acute intraparenchymal hemorrhage or mass effect. The gr ay-white junction is well differentiated. Scattered hypoattenuating areas are seen within the white m atter. Cerebellum: Unremarkable. Mass effect: No evidence of midline shift. Intracranial vasculature: Atherosclerotic calcifications of the intracranial vessels. Soft tissues: Normal. Calvarium/osseous structures: No depressed skull fracture. Paranasal sinuses and mastoid air cells: Mild scattered paranasal sinus disease. Visualized orbits: Bilateral aphakia IMPRESSION: 1. No acute intracranial process. 2. Nonspecific white matter changes, likely secondary to chronic small vessel ischemic disease.
[2023-08-10 05:56] LABS: Glucose,Whole Blood 135 mg/dL (70-110)
[2023-08-10 09:55] LABS: Basophils # (A) 0.1 k/uL (0-0.2); Basophils % (A) 1 %; Eosinophils # (A) 0.5 k/uL (0-0.7); Eosinophils % (A) 5 %; HCT 40.4 % (39.0-53.0); HGB 12.1 gm/dL (13.0-17.5); Hypochromasia Moderate; Lymphocytes # (A) 1.3 k/uL (1.0-4.8); Lymphocytes % (A) 14 %; MCH 24.7 pg (25.0-35.0); MCHC 30.1 g/dL (31.0-37.0); Mean Platelet Volume 9.4; Monocytes # (A) 0.8 k/uL (0-1.0); Monocytes % (A) 8 %; Neutrophils # (A) 6.5 k/uL (1.3-7.7); Neutrophils % (A) 69 %; Platelet Count 251 k/uL (150-450); RBC 4.92 m/uL (4.30-5.90); RDW 13.3 % (11.5-15.5); WBC 9.4 k/uL (3.8-10.6)
[2023-08-10 10:22] LABS: African American GFR (CKD) 47 (>60 ml/min/1.73 sqM); Anion Gap 5 mmol/L; Blood Urea Nitrogen 21 mg/dL (9-20); Carbon Dioxide 27 mmol/L (22-30); Chloride 107 mmol/L (98-107); Glucose 144 mg/dL (74-99); Non-African American GFR(CKD) 41 (>60 ml/min/1.73 sqM); Potassium 4.2 mmol/L (3.5-5.1); Sodium 139 mmol/L (137-145)
--- NOTE | 2023-08-10 10:44 | MR ---
EXAMINATION TYPE: MR brain wo con DATE OF EXAM: 08/10/2023 10:15 AM CLINICAL INDICATION:Male, 87 years old with history of right sided weakness and numbness. cva, Right sided weakness and numbness. COMPARISON: 08/09/2023. TECHNIQUE: Multi planar, multi sequence imaging was performed through the brain including: T1, T2, In version recovery, Diffusion weighted imaging, and gradient echo imaging. No gadolinium was given. FINDINGS: Restricted diffusion within the left thalamus and left to radiata. Remote left frontal lobe injury. Gliosis around the current current restricted diffusion compatible with prior injury. The edwards-white junctions, ventricular system, basal cisterns appear unremarkable. Scattered foci of high T2 signal intensity are seen within the periventricular white matter. Midline structures show n o abnormality. The susceptibility weighted images do not reveal any evidence for micro-hemorrhage. The bone marrow signal is within normal limits. Paranasal sinuses and mastoid air cells: No significant paranasal sinus disease. Visualized orbits: Orbital contents are intact. IMPRESSION: 1. Acute/subacute CVA involving the left thalamus and left to radiata 08/06/2023. 2. Remote injuries within the left MCA territory. 3. Nonspecific white matter changes, likely secondary to small vessel ischemic disease.
--- NOTE | 2023-08-10 11:06 | P.PN ---
Subjective HISTORY OF PRESENT ILLNESS: This is a 87-year-old male with a past medical history significant for CVA, atrial fibrillation, dementia, and previous cardioversion. Patient follows in the office with Dr. Eldridge. We have been asked to see the patient in consultation for anticoagulation recommendations. Patient examined at the bedside. Patient presented to the hospital with right-sided weakness. Patient does state he had a fall secondary to his leg giving out on him. Patient denies having any chest pain or pressure. He denies any shortness of breath. He denies any dizziness or lightheadedness. Vital signs are stable. The patient is currently prescribed Xarelto 15 mg daily. DIAGNOSTICS: - EKG reveals atrial fibrillation versus junctional rhythm. No clear-cut P waves on EKG with baseline artifact - Chest xray negative for acute process -Carotid Doppler: Less than 50% stenosis bilaterally - Laboratory data: WBC 9.6. Hemoglobin 12.2. Platelet count 201. Sodium 138. Potassium 4.0. BUN 19. Creatinine 1.48. - Current home cardiac medications include amiodarone 100 mg daily and Xarelto 15 mg daily. - Echocardiogram obtained this admission reveals ejection fraction 55 to 60%, mild pulm hypertension, mild AR, mild TR 08/09/2023 Patient examined this morning at the bedside. Patient currently denies chest pain or pressure. He denies shortness of breath. MRI of the brain remains pending. Patient continues to report weakness in the right side of his body although improved. He states he is able to lift his right leg off the bed this morning. Vital signs are stable. SBP 150-160s. Telemetry reveals atrial fibrillation with controlled ventricular rate. 08/10/2023 Patient examined this morning at the bedside. Patient is slow to respond this morning. Apparently he was confused yesterday evening and was given Seroquel. Repeat CT of the brain yesterday was negative for acute process. He is scheduled for MRI of the brain. PHYSICAL EXAM: VITAL SIGNS: Reviewed. GENERAL: Well-developed in no acute distress. HEENT: Head is normocephalic. Pupils are equal, round. Sclerae anicteric. Mucous membranes of the mouth are moist. Neck supple. No JVD or thyromegaly LUNGS: Respirations even and unlabored. Lungs essentially clear to auscultation bilaterally. HEART: Irregular rate and rhythm. S1 and S2 heard. Systolic murmur noted. ABDOMEN: Soft. Nondistended. Nontender. EXTREMITIES: Right-sided weakness present. No clubbing or cyanosis. Peripheral pulses intact. No lower extremity edema ASSESSMENT: Right-sided weakness, rule out CVA, MRI pending Altered mental status, may be secondary to Seroquel Persistent atrial fibrillation History of CVA, 2015 History of cardioversion, 2021 History of dementia Chronic kidney disease PLAN: Continue increased dose of Xarelto 20mg daily for appropriate thromboembolic protection Recommend to avoid Seroquel Neurology following. MRI of the brain is pending No further inpatient recommendations from a cardiac standpoint We will sign off. Please reconsult if needed. Nurse practitioner note has been reviewed by physician. Signing provider agrees with the documented findings, assessment, and plan of care documented by [employer] W[employer] BUFFER as a scribe. Objective - Vital Signs Vital signs: Vital Signs Temp 98.0 F 08/10/23 08:00 Pulse 64 08/10/23 08:00 Resp 16 08/10/23 08:00 BP 130/70 08/10/23 08:00 Pulse Ox 97 08/10/23 08:00 FiO2 Intake & Output 08/09/23 08/10/23 08/10/23 18:59 06:59 18:59 Intake Total 236 118 Output Total 0 1 Balance 236 0 117 Intake: Oral 236 118 Output: Urine 0 Stool 1 Other: Voiding Method Urinal Bedside Commode Bedside Commode Diaper Urinal Urinal # Voids 1 - Labs CBC & Chem 7: 08/10/23 09:39 08/10/23 09:39 Labs: Abnormal Lab Results - Last 24 Hours (Table) 08/09/23 08/09/23 08/09/23 Range/Units 11:47 16:26 19:56 Hgb (13.0-17.5) gm/dL MCH (25.0-35.0) pg MCHC (31.0-37.0) g/dL BUN (9-20) mg/dL Creatinine (0.66-1.25) mg/dL Glucose (74-99) mg/dL POC Glucose (mg/dL) 128 H 142 H 171 H (70-110) mg/dL 08/10/23 08/10/23 08/10/23 Range/Units 05:54 09:39 09:39 Hgb 12.1 L (13.0-17.5) gm/dL MCH 24.7 L (25.0-35.0) pg MCHC 30.1 L (31.0-37.0) g/dL BUN 21 H (9-20) mg/dL Creatinine 1.50 H (0.66-1.25) mg/dL Glucose 144 H (74-99) mg/dL POC Glucose (mg/dL) 135 H (70-110) mg/dL
[2023-08-10 11:10] LABS: Glucose,Whole Blood 149 mg/dL (70-110)
--- NOTE | 2023-08-10 11:38 | P.CONS ---
History of Present Illness - Reason for Consult Consult date: 08/10/23 wound care - History of Present Illness This is an 87-year-old patient being seen on 3 S. for nonhealing ulceration to the left posterior and left anterior lower extremity. Patient has history of atrial fibrillation CVA diabetes hyperlipidemia BPH and hypothyroidism. Patient had a CVA 3 years ago. The left posterior ulceration measures approximately 1 x 0.6 x 0.1 cm granulation seen throughout the wound bed and slough and nonviable tissue present wound edges are attached to the wound base the periwound does show ecchymosis. The left anterior lower extremity measures approximately 0.5 x 0.3 x 0.1 cm with granulation seen throughout erythema noted to the periwound. Review Of Systems: Constitutional: No fever, no chills, no night sweats. No weight change. No weakness, fatigue or lethargy. No daytime sleepiness. Integumentary:reports wounds, no lesions. No rash or pruritus. No unusual bruising. No change in hair or nails. Physical exam: General Appearance: Alert, cooperative, no distress, appears stated age. Skin: See HPI all other Skin color, texture, tugor normal, no rashes or lesions. Neurologic: Alert oriented x3 Assessment: 1. Nonhealing ulceration of left calf with fat layer exposure 2. Nonhealing ulceration left lower extremity other site limited to skin breakdown 3. Diabetes with skin ulceration Plan: 1. Left posterior calf apply honey gel and bordered foam. Left anterior apply zinc barrier cream daily. Apply compression garment to the site. Patient may benefit from advanced wound care however due to transportation they will look into wound care at [facility]. Thank you for the consultation any questions please contact the wound care center DNP note has been reviewed and discussed with Dr. Bentley and the impression and plan of care has been directed as dictated. Past Medical History Past Medical History: Atrial Fibrillation, CVA/TIA, Diabetes Mellitus, Hyperlipidemia, Prostate Disorder, Thyroid Disorder Additional Past Medical History / Comment(s): CVA 3 years ago History of Any Multi-Drug Resistant Organisms: None Reported Past Surgical History: Orthopedic Surgery, Tonsillectomy Additional Past Surgical History / Comment(s): RT ANKLE SX TOOK SOME BONE FROM LT HIP TO PUT IN LT ANKLE, JUS CATARACTS. L5 kyphoplasty 04/27/23 Past Anesthesia/Blood Transfusion Reactions: No Reported Reaction Additional Past Anesthesia/Blood Transfusion Reaction / Comm: does not want blood transfusion Past Psychological History: No Psychological Hx Reported Smoking Status: Former smoker Past Alcohol Use History: Daily, None Reported Additional Past Alcohol Use History / Comment(s): STARTED SMOKNG AT AGE 16, QUIT AT AGE 33 LESS THAN 1 PPD. Occasion drink Past Drug Use History: None Reported - Past Family History Mother Family Medical History: Dementia, Diabetes Mellitus Brother(s) Family Medical History: Cancer Additional Family Medical History / Comment(s): "colon problems". colon cancer Medications and Allergies Home Medications Medication Instructions Recorded Confirmed Type Levothyroxine Sodium 88 mcg PO DAILY 07/20/18 08/07/23 History Amiodarone [Cordarone] 100 mg PO DAILY 03/09/23 08/07/23 History Rivaroxaban [Xarelto] 15 mg PO DAILY 03/09/23 08/07/23 History Oxybutynin Chloride [oxyBUTYnin 10 mg PO DAILY 08/07/23 08/07/23 History chloride ER] Allergies Allergy/AdvReac Type Severity Reaction Status Date / Time aspirin AdvReac Mild Unknown Verified 08/09/23 18:49 Physical Exam Vitals: Vital Signs Temp Pulse Pulse Resp BP BP BP 08/10/23 08:00 98.0 F 64 16 130/70 08/10/23 06:10 98.2 F 61 16 158/80 08/09/23 19:36 97.7 F 71 16 153/77 08/09/23 15:30 87 87 16 135/82 135/82 Pulse Ox 08/10/23 08:00 97 08/10/23 06:10 94 L 08/09/23 19:36 98 08/09/23 15:30 97 Intake and Output 08/09/23 08/10/23 08/10/23 22:59 06:59 14:59 Intake Total 118 118 Output Total 0 1 Balance 118 0 117 Intake: Oral 118 118 Output: Urine 0 Stool 1 Other: Voiding Method Bedside Commode Bedside Commode Urinal Urinal # Voids 1 Results CBC & Chem 7: 08/10/23 09:39 08/10/23 09:39 Labs: Abnormal Lab Results - Last 24 Hours (Table) 08/09/23 08/09/23 08/09/23 Range/Units 11:47 16:26 19:56 Hgb (13.0-17.5) gm/dL MCH (25.0-35.0) pg MCHC (31.0-37.0) g/dL BUN (9-20) mg/dL Creatinine (0.66-1.25) mg/dL Glucose (74-99) mg/dL POC Glucose (mg/dL) 128 H 142 H 171 H (70-110) mg/dL 08/10/23 08/10/23 08/10/23 Range/Units 05:54 09:39 09:39 Hgb 12.1 L (13.0-17.5) gm/dL MCH 24.7 L (25.0-35.0) pg MCHC 30.1 L (31.0-37.0) g/dL BUN 21 H (9-20) mg/dL Creatinine 1.50 H (0.66-1.25) mg/dL Glucose 144 H (74-99) mg/dL POC Glucose (mg/dL) 135 H (70-110) mg/dL 08/10/23 Range/Units 11:03 Hgb (13.0-17.5) gm/dL MCH (25.0-35.0) pg MCHC (31.0-37.0) g/dL BUN (9-20) mg/dL Creatinine (0.66-1.25) mg/dL Glucose (74-99) mg/dL POC Glucose (mg/dL) 149 H (70-110) mg/dL Assessment and Plan (1) Non-pressure chronic ulcer of left calf with fat layer exposed Current Visit: Yes Status: Acute Code(s): L97.222 - NON-PRESSURE CHRONIC ULCER OF LEFT CALF W FAT LAYER EXPOSED SNOMED Code(s): 72411740001896473 (2) Non-pressure chronic ulcer of other part of left lower leg limited to breakdown of skin Current Visit: Yes Status: Acute Code(s): L97.821 - NON-PRS CHR ULCER OTH PRT L LOW LEG LIMITED TO BRKDWN SKIN SNOMED Code(s): 78152710825755252 (3) Type 2 diabetes mellitus with other skin ulcer Current Visit: Yes Status: Acute Code(s): E11.622 - TYPE 2 DIABETES MELLITUS WITH OTHER SKIN ULCER; L98.499 - NON-PRESSURE CHRONIC ULCER OF SKIN OF SITES W UNSP SEVERITY SNOMED Code(s): 112710268
[2023-08-10] MEDS: ZINC OXIDE PASTE (Z-GUARD) 1 APPLIC TOPICAL SCH (12:10)
--- NOTE | 2023-08-10 15:49 | P.PN ---
Progress Note - Text Progress Note Date: 08/10/23 Chief Complaint: Right-sided weakness pleasant 87-year-old patient who follows with Dr Santamaria. Chronic stable medical condition includes hyperlipidemia, prior prostate cancer treated with radiation treatment, hypothyroid,. resident at [facility]. Rather independ ent. slightly forgetful. April 2023 underwent L5 kyphoplasty. 2 nights ago on Thursday evening patient noticed some right-sided weakness. This was noted yesterday. Patient is finding it difficult to walk. Lost dexterity in his right arm. Denies any change in speech or vision headache. Patient's had a couple of falls at least without injury. Able to swallow. August 07: No change in neurological status. Tolerating diet. 2D echo unremarkable. Pending MRI. Aspirin was discontinued by neurology as patient informed that he bruises easily. Cardiology did opt a dose of Xarelto. August 08: Up in the recliner. Tolerating diet. Pending MRI. Patient's son Abhijit at the bedside. Medications to continue. August 09: Yesterday evening patient became delirious. Received Seroquel 25 mg. Rather sleepy this morning. Cut back the dose to 12.5 mg. MRI of the brain confirms stroke. Spoke to patient's son Abhijit over the phone. Will watch another 24 hours prior to discharge to rehab. Active Medications Amiodarone HCl (Amiodarone 100 Mg Tab) 100 mg PO DAILY [facility] Last Admin: 08/10/23 09:11 Dose: 100 mg Atorvastatin Calcium (Atorvastatin 20 Mg Tab) 20 mg PO HS [facility] Last Admin: 08/09/23 20:14 Dose: 20 mg Famotidine (Famotidine 20 Mg Tab) 20 mg PO HS [facility] Last Admin: 08/09/23 20:16 Dose: 20 mg Levothyroxine Sodium (Levothyroxine 88 Mcg Tab) 88 mcg PO 0630 [facility] Last Admin: 08/10/23 06:19 Dose: 88 mcg Oxybutynin Chloride (Oxybutynin 10 Mg Tab.Er.24) 10 mg PO DAILY [facility] Last Admin: 08/10/23 09:11 Dose: 10 mg Petrolatum (Zinc Oxide Paste (Z-Guard) 1 Applic) 1 applic TOPICAL DAILY PRN; Protocol PRN Reason: Skin Irritation Petrolatum (Zinc Oxide Paste (Z-Guard) 1 Applic) 1 applic TOPICAL DAILY [facility]; Protocol Last Admin: 08/10/23 12:10 Dose: 1 applic Quetiapine Fumarate (Quetiapine 25 Mg Tab) 12.5 mg PO HS [facility] Rivaroxaban (Rivaroxaban 20 Mg Tab) 20 mg PO DAILY [facility]; Protocol Last Admin: 08/10/23 09:11 Dose: 20 mg Social history: Lives at [facility]. Independent unit. Patient smoked for 17 years stopped at the age of 33. Less than 1 pack a day. Drinks about 2 beers a day. Retired from [employer]. Physical examination: VITAL SIGNS: 97.7, 62, 14, 135/75, 95% room air GENERAL: Rather sleepy, but arousable EYES: Pupils equal. Conjunctiva yoly HEENT: External appearance of nose and ears normal, oral cavity grossly normal. Decreased hearing NECK: JVD not raised; masses not palpable. HEART: First and second heart sounds are normal; no edema. LUNGS: Respiratory rate normal; clear to auscultation. ABDOMEN: Soft, nontender, liver spleen not palpable, no masses palpable. PSYCH: Rather sleepy but arousable MUSCULOSKELETAL:No Clubbing/cyanosis;muscles-grossly intact. OA NEUROLOGICAL: Cranial nerves grossly intact; no facial asymmetry, right arm power 4/5. Decreased dexterity. Right leg power 3/5 INVESTIGATIONS, reviewed in the clinical context: Brain MRI: Acute/subacute CVA involving the left thalamus in the left to radiata remote injuries within the left MCA territory. White matter/small vessel ischemic changes August 09: White count 9.4 hemoglobin 12.1 platelets 251 potassium 4.2 BUN 21 creatinine 1.50 2D echocardiogram: EF 55 to 60% August 07, 2023: White count 9.6 hemoglobin 12.2 platelets 201 sodium 138 potassium 4 creatinine 1.48 EKG tracing personally reviewed by me-poor baseline tracing. Sinus rhythm. Carotid Doppler: Less than 50% stenosis bilateral Chest x-ray film personally reviewed by me-some cardiomegaly CT brain without contrast: Age-related atrophic changes chronic small vessel changes. Assessment and plan: -Subacute stroke that happened approximately 36 hours prior to presentation. Affecting the right side of the body. Patient speech vision swallowing not affected. Left thalamus and the left coronary radiata area. Neurochecks. Neurology following MRI-as above 2D echo-unremarkable PT OT Aspirin discontinued per neurology as patient informed him that he gets easily bruising -Acute delirium multifactorial Given Seroquel 25 mg last night. Patient rather sleepy this morning. Cut back to 12.5 mg nightly. -Primary osteoarthritis multiple joints Tylenol as needed -L5 kyphoplasty in April 2023 -Chronic urine incontinence. 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 Nonhealing ulceration of the left calf with fat layer exposure. Nonhealing ulceration left lower extremity at the site limited to skin breakdown. Secondary to diabetes. Wound care team following. -Hypothyroid Synthroid 88 mcg a day -Diabetes mellitus type 2-as per the patient this was discontinued about 2 months ago by the PCP. Diet controlled. -Chronic urinary incontinence Ditropan XL 10 mg a day -Medical POA: Abhijit Ambrose -DNR Continue current medications. Cut back dose of Seroquel. Plan for discharge to rehab tomorrow. Past Medical History Past Medical History: Atrial Fibrillation, CVA/TIA, Diabetes Mellitus, Hyperlipidemia, Prostate Disorder, Thyroid Disorder Additional Past Medical History / Comment(s): CVA 3 years ago History of Any Multi-Drug Resistant Organisms: None Reported Past Surgical History: Orthopedic Surgery, Tonsillectomy Additional Past Surgical History / Comment(s): RT ANKLE SX TOOK SOME BONE FROM LT HIP TO PUT IN LT ANKLE, JUS CATARACTS. L5 kyphoplasty 04/27/23 Past Anesthesia/Blood Transfusion Reactions: No Reported Reaction Additional Past Anesthesia/Blood Transfusion Reaction / Comment(s): does not want blood transfusion Past Alcohol Use History: Daily, None Reported Additional Past Alcohol Use History / Comment(s): STARTED SMOKNG AT AGE 16, QUIT AT AGE 33 LESS THAN 1 PP
[2023-08-10 16:32] LABS: Glucose,Whole Blood 105 mg/dL (70-110)
[2023-08-10] MEDS: polyethylene glycoL 3350 17 GM POWD.PACK PO SCH (18:33)
[2023-08-10 19:39] LABS: Glucose,Whole Blood 130 mg/dL (70-110)
--- NOTE | 2023-08-10 20:01 | P.PN ---
Subjective Progress Note Date: 08/10/23 Patient was initially seen by Dr. Stevie Carr. Please refer to his note for details. Patient is a 87-year-old male with right-sided weakness. Patient is laying comfortably in bed. He feels "okay". Patient states his right side is getting better. Denies any headache. Denies any chest pain or any abdominal pain. Some of the workup during this hospital visit consisted of: Sodium, calcium, AST ALT CK level are within normal limits. Creatinine is 1.48, glucose is 163. Lipid panel: TG 101, Cholestrol 162, LDL [address] of the head is reported as age-related atrophy and chronic small vessel ischemic change without acute intracranial process seen at this time. Reviewed the CT head and I felt patient had lacunar stroke over the left basal ganglia seems neck. Also upon further review it seems that the patient had a stroke and 2016 in which the MRI showed a stroke over the left basal ganglia. Carotid Duplex is reported as less than 50% stenosis of bilateral carotid bifurcation. Antegrade flow in both vertebral arteries. 2D echo: Poorly visualized endocardium and intracardiac valves. Normal LV systolic function. Objective - Vital Signs Vital signs: Vital Signs Temp 98.3 F 08/10/23 16:00 Pulse 82 08/10/23 16:00 Resp 16 08/10/23 16:00 BP 137/76 08/10/23 16:00 Pulse Ox 97 08/10/23 16:00 FiO2 Intake & Output 08/10/23 08/10/23 08/11/23 06:59 18:59 06:59 Intake Total 286 Output Total 0 402 Balance 0 -116 Intake: Oral 286 Output: Urine 0 400 Stool 2 Other: Voiding Method Bedside Commode Bedside Commode Urinal Urinal - Exam Patient is an elderly male, in no acute distress. Patient is alert awake oriented to time place and person. Patient knows it is July 2023 and that he is in a hospital in [place] in [place]. He knows that he lives in [place] in [place]. Speech and language functions are normal. He can name most objects although for earlobe, he has had eardrum. Patient can name and repeat very well. No aphasia or dysarthria. Attention, concentration is intact and fund of knowledge is limited. Detailed testing deferred. On cranial nerve examination, pupils are equal, round and reacting to light, visual stout are full on confrontation, with no neglect on double simultaneous stimulation. Extraocular muscles are intact with no nystagmus. Face is symmetric, tongue protrudes to the midline. Palatal elevation and sensation normal, hearing is slightly decreased and shoulder shrug normal, facial sensation normal. On muscle strength testing, there is right pronator drift about 5 to 10 degree. The muscle strength is (right/left) deltoid 4/5, biceps 4/5, website project manager 4+/5, hip flexion 0/5. Sensory to touch is equal with no neglect on double simultaneous stimulation. Cerebellar function showed ataxia for [id number] testing only on the right, but not the left. No ataxia for [id number] testing on the left side, cannot perform on the right. Tone is increased in the right leg and bulk of muscles normal. Gait deferred.. On general examination, there is no carotid bruit or murmur, S1-S2 audible. Chest is clear on consultation. Abdomen is soft nontender. No organomegaly, bowel sounds present. Patient has compression stockings on. - Labs CBC & Chem 7: 08/10/23 09:39 08/10/23 09:39 Labs: Abnormal Lab Results - Last 24 Hours (Table) 08/09/23 08/10/23 08/10/23 Range/Units 19:56 05:54 09:39 Hgb 12.1 L (13.0-17.5) gm/dL MCH 24.7 L (25.0-35.0) pg MCHC 30.1 L (31.0-37.0) g/dL BUN (9-20) mg/dL Creatinine (0.66-1.25) mg/dL Glucose (74-99) mg/dL POC Glucose (mg/dL) 171 H 135 H (70-110) mg/dL 08/10/23 08/10/23 Range/Units 09:39 11:03 Hgb (13.0-17.5) gm/dL MCH (25.0-35.0) pg MCHC (31.0-37.0) g/dL BUN 21 H (9-20) mg/dL Creatinine 1.50 H (0.66-1.25) mg/dL Glucose 144 H (74-99) mg/dL POC Glucose (mg/dL) 149 H (70-110) mg/dL Assessment and Plan Assessment: It was an 87-year-old gentleman presents emergency department because of 3 falls in the last 2 days in which he states his leg is giving out but it seems that he is having right-sided weakness upper and lower and he is having coordination issues with the right upper extremity, decreased sensation over the right lower extremity. He is on Xarelto for A-fib and he stated that he took his Xarelto last on Thursday. Acute ischemic stroke left thalamus, and left to radiata. No IV thrombolytics since outside the window and the risk outweigh the benefit. History of stroke without any residual deficit History of atrial fibrillation on Xarelto Chronic kidney insufficiency History of chronic back pain status post kyphoplasty History of COVID-19 in February 2023 Diabetes Hyperlipidemia Plan: MRI of the brain revealed acute/subacute CVA involving the left thalamus and left to radiata. Remote injuries within the left MCA territory. Nonspecific white matter changes, likely secondary to small vessel ischemic disease. I personally reviewed MRI agree with the findings. Patient was resumed on his home dose of Xarelto 15mg daily. And was given aspirin 325 milligram once then was started on aspirin by the ED team. Dr. Carr subsequently stopped aspirin since patient stated that he bruises easily and was notified by his precision aircraft structure assembler to avoid any antiplatelet. It seems the cardiology team went up on Xarelto to 20mg daily. Consulted cardiology team is on board. Lipid panel with Cholesterol 162, LDL 103, HDL 38, triglycerides 101. Dr. Carr started him on Lipitor 20 mg nightly for secondary stroke prophylaxis Hemoglobin A1c 8.2 on 04/30/2023. Recommend optimize control of diabetes to target A1c <7.0. Continue neurochecks Cardiac monitoring PT, OT and SUPERVISOR CELL OPERATION are consulted Will defer the rest of the medical management to primary team For DVT prophylaxis patient is on Xarelto Neurologically clear for discharge to rehab facility.
[2023-08-10] MEDS: QUEtiapine 25 MG TAB PO SCH (20:06)
[2023-08-11 05:45] LABS: Glucose,Whole Blood 119 mg/dL (70-110)
[2023-08-11] MEDS: METOPROLOL TARTRATE 25 MG TAB PO SCH (06:47)
[2023-08-11 10:13] VITALS: RESP 18
[2023-08-11 11:49] LABS: Glucose,Whole Blood 136 mg/dL (70-110)
--- NOTE | 2023-08-11 12:35 | P.PN ---
Progress Note - Text Progress Note Date: 08/11/23 Chief Complaint: Right-sided weakness pleasant 87-year-old patient who follows with Dr Santamaria. Chronic stable medical condition includes hyperlipidemia, prior prostate cancer treated with radiation treatment, hypothyroid,. resident at [facility]. Rather independ ent. slightly forgetful. April 2023 underwent L5 kyphoplasty. 2 nights ago on Thursday evening patient noticed some right-sided weakness. This was noted yesterday. Patient is finding it difficult to walk. Lost dexterity in his right arm. Denies any change in speech or vision headache. Patient's had a couple of falls at least without injury. Able to swallow. August 07: No change in neurological status. Tolerating diet. 2D echo unremarkable. Pending MRI. Aspirin was discontinued by neurology as patient informed that he bruises easily. Cardiology did opt a dose of Xarelto. August 08: Up in the recliner. Tolerating diet. Pending MRI. Patient's son Abhijit at the bedside. Medications to continue. August 09: Yesterday evening patient became delirious. Received Seroquel 25 mg. Rather sleepy this morning. Cut back the dose to 12.5 mg. MRI of the brain confirms stroke. Spoke to patient's son Abhijit over the phone. Will watch another 24 hours prior to discharge to rehab. August 10: Up in a chair. Right-sided weakness still present. Slept well last night. Eating lunch. Chopped diet. Patient's son Lance at the bedside. Medications reviewed. Spoke to foster care social worker. Patient to go to rehab today. Have patient follow-up with neurology and cardiology outpatient. For blood pressure was running high Lopressor was added. Discussion and discharge planning more than 35 minutes Social history: Lives at [facility]. Independent unit. Patient smoked for 17 years stopped at the age of 33. Less than 1 pack a day. Drinks about 2 beers a day. Retired from [employer]. Physical examination: VITAL SIGNS: 97.8, 60, 18, 126 x 72, 96% room air GENERAL: Up in a chair, eating lunch EYES: Pupils equal. Conjunctiva yoly HEENT: External appearance of nose and ears normal, oral cavity grossly normal. Decreased hearing NECK: JVD not raised; masses not palpable. HEART: First and second heart sounds are normal; no edema. LUNGS: Respiratory rate normal; clear to auscultation. ABDOMEN: Soft, nontender, liver spleen not palpable, no masses palpable. PSYCH: Answering simple questions MUSCULOSKELETAL:No Clubbing/cyanosis;muscles-grossly intact. OA NEUROLOGICAL: Cranial nerves grossly intact; no facial asymmetry, right arm power 4/5. Decreased dexterity. Right leg power 3/5 INVESTIGATIONS, reviewed in the clinical context: Brain MRI: Acute/subacute CVA involving the left thalamus in the left to radiata remote injuries within the left MCA territory. White matter/small vessel ischemic changes August 09: White count 9.4 hemoglobin 12.1 platelets 251 potassium 4.2 BUN 21 creatinine 1.50 2D echocardiogram: EF 55 to 60% August 07, 2023: White count 9.6 hemoglobin 12.2 platelets 201 sodium 138 potassium 4 creatinine 1.48 EKG tracing personally reviewed by me-poor baseline tracing. Sinus rhythm. Carotid Doppler: Less than 50% stenosis bilateral Chest x-ray film personally reviewed by me-some cardiomegaly CT brain without contrast: Age-related atrophic changes chronic small vessel changes. Assessment and plan: -Subacute stroke that happened approximately 36 hours prior to presentation. Affecting the right side of the body. Patient speech vision swallowing not affected. Left thalamus and the left coronary radiata area. Neurochecks. Neurology following MRI-as above 2D echo-unremarkable PT OT Aspirin discontinued per neurology as patient informed him that he gets easily bruising -Acute delirium multifactorial: Better Seroquel 12.5 mg nightly.-As needed -Primary osteoarthritis multiple joints Tylenol as needed -L5 kyphoplasty in April 2023 -Chronic urine incontinence. 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 Nonhealing ulceration of the left calf with fat layer exposure. Nonhealing ulceration left lower extremity at the site limited to skin breakdown. Secondary to diabetes. Wound care team following. -Hypothyroid Synthroid 88 mcg a day -Diabetes mellitus type 2-as per the patient this was discontinued about 2 months ago by the PCP. Diet controlled. -Chronic urinary incontinence Ditropan XL 10 mg a day -Medical POA: Abhijit Ambrose -DNR Disposition: Rehab at [facility] Past Medical History Past Medical History: Atrial Fibrillation, CVA/TIA, Diabetes Mellitus, Hyperlipidemia, Prostate Disorder, Thyroid Disorder Additional Past Medical History / Comment(s): CVA 3 years ago History of Any Multi-Drug Resistant Organisms: None Reported Past Surgical History: Orthopedic Surgery, Tonsillectomy Additional Past Surgical History / Comment(s): RT ANKLE SX TOOK SOME BONE FROM LT HIP TO PUT IN LT ANKLE, JUS CATARACTS. L5 kyphoplasty 04/27/23 Past Anesthesia/Blood Transfusion Reactions: No Reported Reaction Additional Past Anesthesia/Blood Transfusion Reaction / Comment(s): does not want blood transfusion Past Alcohol Use History: Daily, None Reported Additional Past Alcohol Use History / Comment(s): STARTED SMOKNG AT AGE 16, QUIT AT AGE 33 LESS THAN 1 PP
[2023-08-11 13:36] VITALS: BP 102/61; PULSE 66; TEMP 98.2
[2023-08-11 14:04] VITALS: BMI 27.3
--- NOTE | 2023-08-11 14:58 | P.DS ---
Providers Date of admission: 08/07/23 13:42 Expected date of discharge: 08/11/23 Attending physician: Joseluis Garcia Consults: 08/07/23 13:41 Consult Physician Urgent Consulting Provider: Stevie Carr Consult Reason/Comments: cva Do you want consulting provider notified?: Already Contacted Primary care physician: Marlo [facility] Course: Chief Complaint: Right-sided weakness pleasant 87-year-old patient who follows with Dr Santamaria. Chronic stable medical condition includes hyperlipidemia, prior prostate cancer treated with radiation treatment, hypothyroid,. resident at [facility]. Rather independent. slightly forgetful. April 2023 underwent L5 kyphoplasty. 2 nights ago on Thursday evening patient noticed some right-sided weakness. This was noted yesterday. Patient is finding it difficult to walk. Lost dexterity in his right arm. Denies any change in speech or vision headache. Patient's had a couple of falls at least without injury. Able to swallow. August 07: No change in neurological status. Tolerating diet. 2D echo unremarkable. Pending MRI. Aspirin was discontinued by neurology as patient informed that he bruises easily. Cardiology did opt a dose of Xarelto. August 08: Up in the recliner. Tolerating diet. Pending MRI. Patient's son Abhijit at the bedside. Medications to continue. August 09: Yesterday evening patient became delirious. Received Seroquel 25 mg. Rather sleepy this morning. Cut back the dose to 12.5 mg. MRI of the brain confirms stroke. Spoke to patient's son Abhijit over the phone. Will watch another 24 hours prior to discharge to rehab. August 10: Up in a chair. Right-sided weakness still present. Slept well last night. Eating lunch. Chopped diet. Patient's son Lance at the bedside. Medications reviewed. Spoke to older adult social work specialist. Patient to go to rehab today. Have patient follow-up with neurology and cardiology outpatient. For blood pressure was running high Lopressor was added. Discussion and discharge planning more than 35 minutes Social history: Lives at [facility]. Independent unit. Patient smoked for 17 years stopped at the age of 33. Less than 1 pack a day. Drinks about 2 beers a day. Retired from [employer]. Physical examination: VITAL SIGNS: 97.8, 60, 18, 126 x 72, 96% room air GENERAL: Up in a chair, eating lunch EYES: Pupils equal. Conjunctiva yoly HEENT: External appearance of nose and ears normal, oral cavity grossly normal. Decreased hearing NECK: JVD not raised; masses not palpable. HEART: First and second heart sounds are normal; no edema. LUNGS: Respiratory rate normal; clear to auscultation. ABDOMEN: Soft, nontender, liver spleen not palpable, no masses palpable. PSYCH: Answering simple questions MUSCULOSKELETAL:No Clubbing/cyanosis;muscles-grossly intact. OA NEUROLOGICAL: Cranial nerves grossly intact; no facial asymmetry, right arm power 4/5. Decreased dexterity. Right leg power 3/5 INVESTIGATIONS, reviewed in the clinical context: Brain MRI: Acute/subacute CVA involving the left thalamus in the left to radiata remote injuries within the left MCA territory. White matter/small vessel ischemic changes August 09: White count 9.4 hemoglobin 12.1 platelets 251 potassium 4.2 BUN 21 creatinine 1.50 2D echocardiogram: EF 55 to 60% August 07, 2023: White count 9.6 hemoglobin 12.2 platelets 201 sodium 138 potassium 4 creatinine 1.48 EKG tracing personally reviewed by me-poor baseline tracing. Sinus rhythm. Carotid Doppler: Less than 50% stenosis bilateral Chest x-ray film personally reviewed by me-some cardiomegaly CT brain without contrast: Age-related atrophic changes chronic small vessel changes. Assessment and plan: -Subacute stroke that happened approximately 36 hours prior to presentation. Affecting the right side of the body. Patient speech vision swallowing not affected. Left thalamus and the left coronary radiata area. Neurochecks. Neurology following MRI-as above 2D echo-unremarkable PT OT Aspirin discontinued per neurology as patient informed him that he gets easily bruising -Acute delirium multifactorial: Better Seroquel 12.5 mg nightly.-As needed -Primary osteoarthritis multiple joints Tylenol as needed -L5 kyphoplasty in April 2023 -Chronic urine incontinence. 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 Nonhealing ulceration of the left calf with fat layer exposure. Nonhealing ulceration left lower extremity at the site limited to skin breakdown. Secondary to diabetes. Wound care team following. -Hypothyroid Synthroid 88 mcg a day -Diabetes mellitus type 2-as per the patient this was discontinued about 2 months ago by the PCP. Diet controlled. -Chronic urinary incontinence Ditropan XL 10 mg a day -Medical POA: Abhijit Ambrose -DNR [place] [facility] [place] Past Medical History Past Medical History: Atrial Fibrillation, CVA/TIA, Diabetes Mellitus, Hyperlipidemia, Prostate Disorder, Thyroid Disorder Additional Past Medical History / Comment(s): CVA 3 years ago History of Any Multi-Drug Resistant Organisms: None Reported Past Surgical History: Orthopedic Surgery, Tonsillectomy Additional Past Surgical History / Comment(s): RT ANKLE SX TOOK SOME BONE FROM LT HIP TO PUT IN LT ANKLE, JUS CATARACTS. L5 kyphoplasty 04/27/23 Past Anesthesia/Blood Transfusion Reactions: No Reported Reaction Additional Past Anesthesia/Blood Transfusion Reaction / Comment(s): does not want blood transfusion Past Alcohol Use History: Daily, None Reported Additional Past Alcohol Use History / Comment(s): STARTED SMOKNG AT AGE 16, QUIT AT AGE 33 LESS THAN 1 PP Plan - Discharge Summary Discharge Rx Participant: No New Discharge Prescriptions: New Atorvastatin [Lipitor] 20 mg PO HS tab Metoprolol Tartrate [Lopressor] 25 mg PO BID tab polyethylene glycoL 3350 [Miralax] 17 gm PO DAILY packet Famotidine [Pepcid] 20 mg PO HS tab Rivaroxaban [Xarelto] 20 mg PO DAILY tab QUEtiapine [SEROquel] 12.5 mg PO HS PRN #1 tab PRN Reason: Insomnia Continue Levothyroxine Sodium 88 mcg PO DAILY Amiodarone [Cordarone] 100 mg PO DAILY Oxybutynin Chloride [oxyBUTYnin chloride ER] 10 mg PO DAILY Discontinued Rivaroxaban [Xarelto] 15 mg PO DAILY Discharge Medication List Levothyroxine Sodium 88 mcg PO DAILY 07/20/18 [History] Amiodarone [Cordarone] 100 mg PO DAILY 03/09/23 [History] Oxybutynin Chloride [oxyBUTYnin chloride ER] 10 mg PO DAILY 08/07/23 [History] Atorvastatin [Lipitor] 20 mg PO HS tab 08/11/23 [Rx] Famotidine [Pepcid] 20 mg PO HS tab 08/11/23 [Rx] Metoprolol Tartrate [Lopressor] 25 mg PO BID tab 08/11/23 [Rx] QUEtiapine [SEROquel] 12.5 mg PO HS PRN #1 tab 08/11/23 [Rx] Rivaroxaban [Xarelto] 20 mg PO DAILY tab 08/11/23 [Rx] polyethylene glycoL 3350 [Miralax] 17 gm PO DAILY packet 08/11/23 [Rx] Follow up Appointment(s)/Referral(s): cardiology, [Other] - 2 Weeks Chuy Ho MD [REFERRING] - 2 Weeks Marlo Santamaria DO [Primary Care Provider] - 1-2 days Activity/Diet/Wound Care/Special Instructions: wound care orders per joan diet orders per teacher ballet
== END 2023-08-11 17:45 | DRG 65 ==
LOC: EC 11:56 → MERGE 11:56 → 3SCARD 13:42
PROVIDERS: ADMIT Hospitalist; ATTEND Hospitalist
DX: I63.81 Other cerebral infarction due to occlusion or stenosis of small artery (principal); E87.1 Hypo-osmolality and hyponatremia; G81.91 Hemiplegia, unspecified affecting right dominant side; I48.19 Other persistent atrial fibrillation; F05 Delirium due to known physiological condition; L97.222 Non-pressure chronic ulcer of left calf with fat layer exposed; L97.821 Non-pressure chronic ulcer of other part of left lower leg limited to breakdown of skin; Z66 Do not resuscitate; E11.22 Type 2 diabetes mellitus with diabetic chronic kidney disease; E11.649 Type 2 diabetes mellitus with hypoglycemia without coma; E78.5 Hyperlipidemia, unspecified; Z79.890 Hormone replacement therapy; F03.90 Unspecified dementia, unspecified severity, without behavioral disturbance, psychotic disturbance, mood disturbance, and anxiety; E11.622 Type 2 diabetes mellitus with other skin ulcer; I12.9 Hypertensive chronic kidney disease with stage 1 through stage 4 chronic kidney disease, or unspecified chronic kidney disease; I65.23 Occlusion and stenosis of bilateral carotid arteries; N18.9 Chronic kidney disease, unspecified; G89.29 Other chronic pain; R29.705 NIHSS score 5; R32 Unspecified urinary incontinence; W19.XXXA Unspecified fall, initial encounter; Z79.01 Long term (current) use of anticoagulants; Z79.899 Other long term (current) drug therapy; Z86.73 Personal history of transient ischemic attack (TIA), and cerebral infarction without residual deficits; Z86.16 Personal history of COVID-19; Z85.46 Personal history of malignant neoplasm of prostate; I08.2 Rheumatic disorders of both aortic and tricuspid valves; Z98.42 Cataract extraction status, left eye; Z98.41 Cataract extraction status, right eye; R27.0 Ataxia, unspecified; N40.0 Benign prostatic hyperplasia without lower urinary tract symptoms
CPT/HCPCS: 36415; 70450; 70551; 71046; 80048; 80053; 80061; 82550; 84443; 85025; 85610; 85730; 93005; 93306; 93880; 96360; 96361; 99285

== ENCOUNTER 2023-08-16 01:59 | Emergency (ER) | payer MEDICARE ==
[2023-08-16 02:08] VITALS: TEMP 97.9
--- NOTE | 2023-08-16 02:35 | ED ---
Fall HPI - General Chief Complaint: Fall Stated Complaint: Fall Time Seen by Provider: 08/16/23 02:08 Source: patient, EMS Mode of arrival: EMS - History of Present Illness MD Complaint: fall -: unknown Fall From: standing When Fall Occurred: unsure Fall Witnessed: no Place Fall Occurred: [facility]NF Loss of Consciousness: unsure Prolonged Down Time?: unclear - Related Data Home Medications Medication Instructions Recorded Confirmed Levothyroxine Sodium 88 mcg PO DAILY 07/20/18 08/07/23 Amiodarone [Cordarone] 100 mg PO DAILY 03/09/23 08/07/23 Oxybutynin Chloride [oxyBUTYnin 10 mg PO DAILY 08/07/23 08/07/23 chloride ER] Previous Rx's Medication Instructions Recorded Atorvastatin [Lipitor] 20 mg PO HS tab 08/11/23 Famotidine [Pepcid] 20 mg PO HS tab 08/11/23 Metoprolol Tartrate [Lopressor] 25 mg PO BID tab 08/11/23 QUEtiapine [SEROquel] 12.5 mg PO HS PRN #1 tab 08/11/23 Rivaroxaban [Xarelto] 20 mg PO DAILY tab 08/11/23 polyethylene glycoL 3350 [Miralax] 17 gm PO DAILY packet 08/11/23 Allergies Allergy/AdvReac Type Severity Reaction Status Date / Time aspirin AdvReac Mild Unknown Verified 08/09/23 18:49 Review of Systems ROS Statement: Those systems with pertinent positive or pertinent negative responses have been documented in the HPI. ROS Other: All systems not noted in ROS Statement are negative. 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 History of Any Multi-Drug Resistant Organisms: None Reported Past Surgical History: Orthopedic Surgery, Tonsillectomy Additional Past Surgical History / Comment(s): RT ANKLE SX TOOK SOME BONE FROM LT HIP TO PUT IN LT ANKLE, JUS CATARACTS. L5 kyphoplasty 04/27/23 Past Anesthesia/Blood Transfusion Reactions: No Reported Reaction Additional Past Anesthesia/Blood Transfusion Reaction / Comment(s): does not want blood transfusion Past Psychological History: No Psychological Hx Reported Smoking Status: Former smoker Past Alcohol Use History: Daily, None Reported Past Drug Use History: None Reported - Past Family History Mother Family Medical History: Dementia, Diabetes Mellitus Brother(s) Family Medical History: Cancer Additional Family Medical History / Comment(s): "colon problems". colon cancer General Exam Limitations: no limitations General appearance: alert, in no apparent distress Head exam: Present: atraumatic, normocephalic Eye exam: Present: normal appearance. Absent: scleral icterus, conjunctival injection Neck exam: Present: other (Cervical collar) Respiratory exam: Present: normal lung sounds bilaterally. Absent: respiratory distress, wheezes, rales, rhonchi, stridor, accessory muscle use Cardiovascular Exam: Present: regular rate, normal rhythm, normal heart sounds. Absent: systolic murmur, diastolic murmur, rubs, gallop GI/Abdominal exam: Present: soft. Absent: distended, tenderness, guarding, rebound, rigid, mass Extremities exam: Present: normal inspection, normal capillary refill Neurological exam: Present: alert. Absent: oriented X3, motor sensory deficit Skin exam: Present: warm, dry, intact, normal color. Absent: rash Course Vital Signs 08/16/23 08/16/23 08/16/23 02:02 02:15 02:30 Temperature 97.9 F Pulse Rate 68 64 61 Respiratory 18 12 18 Rate Blood Pressure 180/96 180/96 170/139 O2 Sat by Pulse 97 98 96 Oximetry 08/16/23 08/16/23 08/16/23 02:45 03:15 04:00 Temperature Pulse Rate 60 59 L 56 L Respiratory 16 14 15 Rate Blood Pressure 162/68 166/76 125/64 O2 Sat by Pulse 96 96 94 L Oximetry 08/16/23 08/16/23 05:00 06:42 Temperature Pulse Rate 57 L 60 Respiratory 18 18 Rate Blood Pressure 167/75 134/67 O2 Sat by Pulse 99 95 Oximetry Medical Decision Making - Medical Decision Making The patient had x-ray of the left femur that I interpreted as negative for acute fracture or dislocation. The patient had CT of the brain that I interpreted as negative for acute intracranial hemorrhage or bony injury. Was pt. sent in by a medical professional or institution (, PA, NATURAL SCIENCES DEPARTMENT CHAIR, urgent care, hospital, or fci...) When possible be specific @ -Patient sent from long-term facility for evaluation related to a fall Did you speak to anyone other than the patient for history (EMS, parent, family, police, friend...)? What history was obtained from this source @ -[EMS contributed history Did you review nursing and triage notes (agree or disagree)? Why? @ -[I reviewed and agree with nursing and triage notes] Were old charts reviewed (outside hosp., previous admission, EMS record, old EKG, old radiological studies, urgent care reports/EKG's, fci records)? Report findings @ -[No old charts were reviewed] Differential Diagnosis (chest pain, altered mental status, abdominal pain women, abdominal pain men, vaginal bleeding, weakness, fever, dyspnea, syncope, headache, dizziness, GI bleed, back pain, seizure, CVA, palpatations, mental health, musculoskeletal)? @ -Differential Musculoskeletal Muscular strain, contusion, ligament sprain, fracture, arthritis, septic arthritis, bursitis, cellulitis, muscle spasm, nerve compression, DVT, arterial occlusion, herpes zoster, electrolyte abnormality, tumor.... This is not meant to be in all inclusive list EKG interpreted by me (3pts min.). @ -[As above] X-rays interpreted by me (1pt min.). @ -[I interpreted as above CT interpreted by me (1pt min.). @ -I interpreted as above U/S interpreted by me (1pt. min.). @ -[None done] What testing was considered but not performed or refused? (CT, X-rays, U/S, labs)? Why? @ -[None] What meds were considered but not given or refused? Why? @ -[None] Did you discuss the management of the patient with other professionals (professionals i.e. , PA, NATURAL SCIENCES DEPARTMENT CHAIR, lab, RT, psych nurse, psychotherapist social worker, compliance representative dealer, teacher, radio electronics officer, geriatric case manager)? Give summary @ -[No] Was smoking cessation discussed for >3mins.? @ -[No] Was critical care preformed (if so, how long)? @ -[No] Were there social determinants of health that impacted care today? How? (Homelessness, low income, unemployed, alcoholism, drug addiction, transportation, low edu. Level, literacy, decrease access to med. care, [facility], rehab)? @ -[No] Was there de-escalation of care discussed even if they declined (Discuss DNR or withdrawal of care, Hospice)? DNR status @ -[No] What co-morbidities impacted this encounter? (DM, HTN, Smoking, COPD, CAD, Cancer, CVA, ARF, Chemo, Hep., AIDS, mental health diagnosis, sleep apnea, morbid obesity)? @ -[None] Was patient admitted / discharged? Hospital course, mention meds given and route, prescriptions, significant lab abnormalities, going to OR and other pertinent info. @ -[Patient is a 7-year-old man here to have evaluation after having a fall which was concerning due to mechanism. The patient's workup here is unremarkable. Stable to have transfer back to long-term care facility. Undiagnosed new problem with uncertain prognosis? @ -[No] Drug Therapy requiring intensive monitoring for toxicity (Heparin, Nitro, Insulin, Cardizem)? @ -[No] Were any procedures done? @ -[No] Diagnosis/symptom? @ -[Acute fall injury Minor head injury Left hip contusion Acute, or Chronic, or Acute on Chronic? @ -[Acute Uncomplicated (without systemic symptoms) or Complicated (systemic symptoms)? @ -[Uncomplicated Side effects of treatment? @ -[No] Exacerbation, Progression, or Severe Exacerbation? @ -[No] Poses a threat to life or bodily function? How? (Chest pain, [place], [place], pneumonia, PE, COPD, DKA, ARF, appy, cholecystitis, CVA, Diverticulitis, Homicidal, Suicidal, threat to staff... and all critical care pts) @ -[No] Disposition Clinical Impression: Fall, Head injury Disposition: HOME SELF-CARE Condition: Good Instructions (If sedation given, give patient instructions): Head Injury (ED), Fall Prevention (ED) Is patient prescribed a controlled substance at d/c from ED?: No Referrals: Domingo Garcia MD [STAFF PHYSICIAN] - 1-2 days
--- NOTE | 2023-08-16 04:58 | XR ---
EXAMINATION TYPE: XR femur LT DATE OF EXAM: 08/16/2023 CLINICAL HISTORY: Falling injury with pain TECHNIQUE: Two views of the left femur are obtained. COMPARISON: None FINDINGS: Overlying clothing or blanket material. There is no acute fracture or dislocation seen in the left femur. Moderate joint space loss with moderate to severe acetabular spurring in the left hip . IMPRESSION: There is no acute fracture or dislocation in the left femur.
--- NOTE | 2023-08-16 05:01 | CT ---
EXAMINATION TYPE: CT brain seema randolph con DATE OF EXAM: 08/16/2023 COMPARISON: CT brain 1 week earlier. HISTORY: Patient arrives from [facility] after having fall on [place]. C/O left femur pain. CT DLP: 1505 mGycm. Automated Exposure Control for Dose Reduction was Utilized. TECHNIQUE: CT scan of the head and cervical spine are performed without contrast. FINDINGS: There is no acute intracranial hemorrhage or midline shift identified. Moderate ventricul ar and sulcal prominence redemonstrated. Moderate low-attenuation in the periventricular white matte r redemonstrated. The calvarium is intact. The globes are intact and the visualized sinuses are clear . Cervical spine is visualized in its entirety from C1 through upper thoracic levels and demonstrates s atisfactory alignment without evidence of acute fracture or dislocation. Prevertebral soft tissue ap pears within normal limits. The C1-C2 articulation is within normal limits on the coronal images. V ertebral body heights are maintained. Moderate disc space narrowing at C6-C7 level is present. Modera te to severe multilevel anterior spurring in the lower cervical spine. Axial images show multilevel v ertebral facet degenerative changes bilaterally. Thyroid gland is normal in size. Lung apices are sage ar without pneumothorax. IMPRESSION: 1. There is no acute fracture or dislocation evident in the cervical spine. 2. No acute intracranial hemorrhage or midline shift is seen.
[2023-08-16 05:24] VITALS: RESP 18
[2023-08-16] MEDS: HYDROcodone/APAP 5-325MG 1 EACH TAB PO STA (05:43)
[2023-08-16 06:44] VITALS: BP 134/67; PULSE 60
== END 2023-08-16 06:44 | disposition home or self-care (01) ==
LOC: EC 01:59
DX: S09.90XA Unspecified injury of head, initial encounter (principal); Z88.6 Allergy status to analgesic agent; Z86.73 Personal history of transient ischemic attack (TIA), and cerebral infarction without residual deficits; Z87.891 Personal history of nicotine dependence; W18.30XA Fall on same level, unspecified, initial encounter; Y92.129 Unspecified place in nursing home as the place of occurrence of the external cause
CPT/HCPCS: 70450; 72125; 93005; 99285